=== PATIENT | male | born 1980 | race Caucasian/White ===

== ENCOUNTER 2020-11-17 11:23 | Inpatient (IN) | payer OTHER ==
[2020-11-17] MEDS ORDERED: Ringers Lactate 2,000 ML IV ONE (11:48)
[2020-11-17] MEDS ORDERED: LIDOCAINE VISCOUS 2% SOLN 15 ML UDC ONE (11:48)
[2020-11-17 12:24] LABS: Hematocrit 35.9 % (39.6-49.0); RBC Red Blood Cell Count 4.82 M/uL (4.33-5.43)
[2020-11-17 12:25] LABS: Absolute Lymphocytes (CBC) 0.9 K/uL (0.7-4.9); Basophils % 0.3 % (0-1.3); Lymphocytes % 4.2 % (15.3-44.8); MPV 8.3 fL (7.6-11.3)
[2020-11-17 12:29] LABS: Protime INR 1.58
[2020-11-17] MEDS ORDERED: FENTANYL CITR 100 MCG/2 ML ONE ×3 (12:39→20:34)
[2020-11-17] MEDS ORDERED: ONDANSETRON 4 MG/2 ML VIAL ONE ×2 (12:39→20:35)
[2020-11-17 12:49] LABS: ALT/SGPT 18 U/L (12-78); AST/SGOT 50 U/L (15-37); Albumin 2.9 g/dL (3.4-5.0); Alkaline Phosphatase 100 U/L (45-117); BUN Blood Urea Nitrogen 52 mg/dL (7-18); Bicarbonate 16 mmol/L (21-32); Bilirubin Direct 0.2 mg/dL (0-0.2); Bilirubin Total 0.6 mg/dL (0.2-1.0); Creatine Phosphokinase 1771 U/L (39-308); Glucose Level 141 mg/dL (74-106); Potassium 4.7 mmol/L (3.5-5.1); Protein, Total 8.6 g/dL (6.4-8.2); Sodium Level 130 mmol/L (136-145); Troponin (Emerg Dept Use Only) < 0.02 ng/mL (0.0-0.045)
[2020-11-17] MEDS ORDERED: DIPHENHYDRAMINE 50 MG/ML VIAL ONE ×2 (13:09→20:00)
[2020-11-17] MEDS ORDERED: NA CHLORIDE 0.9% 1,000 ML ONE ×2 (13:23→19:07)
[2020-11-17 13:25] LABS: Urine Bacteria <20 /HPF (NONE SEEN); Urine Mucus 2+ /HPF (NONE SEEN)
[2020-11-17 13:26] LABS: Anisocytosis SLIGHT; Blood Morphology Comment NOTED (NOT SEEN); Platelet Estimate INCR
[2020-11-17 13:35] LABS: Barbiturates NEGATIVE (NEGATIVE); Benzodiazepines NEGATIVE (NEGATIVE); Cocaine POSITIVE (NEGATIVE); METHAMPHETAM POSITIVE (NEGATIVE); Methadone NEGATIVE (NEGATIVE); Opiates NEGATIVE (NEGATIVE); Phencyclidine NEGATIVE (NEGATIVE); THC Cannibis NEGATIVE (NEGATIVE)
--- NOTE | 2020-11-17 14:08 | ER ---
Nurse's Notes [facility] Name: Sd Bergman Age: 40 yrs Sex: Male : 1980 Arrival Date: 11/17/2020 Time: 11:25 Bed 5 Private MD: Diagnosis: Acute kidney failure, unspecified;Dehydration;Rhabdomyolysis;Unspecified open wound of right buttock, initial encounter Presentation: 11/17 11:30 Chief complaint: EMS states: Found by security in drainage ditch, wheelchair was in the road above ditch, was down for approx 2 days. BP 80/40, HR 130s, confused. Ebola Screen: No symptoms or risks identified at this time. Risk Assessment: Do you want to hurt yourself or someone else? Patient reports no desire to harm self or others. Onset of symptoms is unknown. 11:30 Method Of Arrival: EMS: [facility] 11:30 Acuity: CASA 1 hb 12:00 Coronavirus screen: Client denies travel out of the [place] in the last 14 days. At this jl7 time, the client does not indicate any symptoms associated with coronavirus-19. Initial Sepsis Screen: Does the patient meet any 2 criteria? RR > 20 per min. HR > 90 bpm. Yes Does the patient have a suspected source of infection? Yes: Skin breakdown/wound. Triage Assessment: 11:30 General: Appears in no apparent distress. uncomfortable, ill, slender, Behavior is jl7 cooperative, crying, restless. Pain: Complains of pain in all over. EENT: Oral mucosa is dry. Throat is reddened. Neuro: Level of Consciousness is awake, alert, obeys commands, confused, Oriented to person. Cardiovascular: Patient's skin is warm and dry. Rhythm is sinus tachycardia. Respiratory: Airway is patent Respiratory effort is even, unlabored, Respiratory pattern is regular, symmetrical. GI: Colostomy site is reddened. Ostomy appliance is not intact. Derm: Wound noted buttocks Wound is Stage 4 per CHARLENE Moseley. Derm: Wound noted buttocks Wound is Stage 3 per CHARLENE Moseley Rash noted that is red, raised, on all over 2 wounds per CHARLENE Moseley. Musculoskeletal: Amputation of left AKA. Historical: - Allergies: 12:18 No Known Allergies; hb - PMHx: 12:18 Parapalegic; hb - PSHx: 12:18 L AKA; Colostomy; hb - Immunization history:: Adult Immunizations unknown. - Social history:: Smoking status: unknown. Screenin:35 Nutritional screening: Difficulty chewing/swallowing? Yes Intervention for positive jl7 screen: ED Physician notified. 13:59 Abuse screen: unable to obtain, pt unable to describe why and how he was on the side of jl7 the road. Tuberculosis screening: No symptoms or risk factors identified. Fall Risk IV access (20 points). Ambulatory Aid- None/Bed Rest/Nurse Assist (0 pts). Gait- Weak (10 pts.). Mental Status- Overestimates/Forgets Limitations (15 pts.). Total Li Fall Scale indicates High Risk Score (45 or more points). Fall prevention measures have been instituted. Side Rails Up X 2 Placed Close to Nursing Station Frequent Obs/Assessments Occuring As available patient and family educated on Fall Prevention Program and Strategies. Assessment: 11:25 GI: Colostomy site is reddened. Ostomy appliance Pt does not have an appliance on jl7 ostomy. ornamental ironworking supervisor notified and will bring one. 11:35 Reassessment: CHARLENE Moseley at bedside to insert central line. jl7 12:25 Reassessment: Ostomy appliance attached. jl7 14:30 Reassessment: No changes from previously documented assessment. Patient and/or family hb updated on plan of care and expected duration. Pain level reassessed. 15:30 Reassessment: No changes from previously documented assessment. Patient and/or family hb updated on plan of care and expected duration. Pain level reassessed. 16:42 Reassessment: Admission ordered, awaiting hospitalist visit at this time. hb 17:02 Reassessment: Wound care at bedside assessing pt. jl7 17:10 Reassessment: Dr. Frederick at bedside assessing pt, verbal order to administer 50 mcg jl7 Fentanyl IVP. 18:13 Reassessment: Patient appears in no apparent distress at this time. Patient and/or hb family updated on plan of care and expected duration. Pain level reassessed. Vital Signs: 11:30 Pulse 146; Resp 24; Pulse Ox 92% ; Pain 10/10; hb 11:30 Temp 98.2(O); jl7 11:34 Weight 80 kg; hb 11:55 BP 90 / 61; Pulse 112; Resp 21; jl7 12:30 BP 115 / 86; Pulse 94; Resp 21; Temp 99.1; Pulse Ox 100% ; jl7 13:00 BP 115 / 86; Pulse 96; Resp 20; Pulse Ox 98% on R/A; hb 14:30 BP 90 / 62; Pulse 125; Resp 19; Pulse Ox 98% ; hb 16:00 BP 121 / 70; Pulse 120; Resp 19; Pulse Ox 98% ; hb ED Course: 11:25 Patient arrived in ED. jr8 11:25 Pradip Gaines PA is PHCP. jr8 11:25 Manpreet Palomo MD is Attending Physician. jr8 11:30 Patient has correct armband on for positive identification. Placed in gown. Bed in low jl7 position. Call light in reach. Side rails up X 1. vice president of consulting services on. Pulse ox on. NIBP on. Warm blanket given. 11:30 Missed attempt(s): 20 gauge in left antecubital area. Bleeding controlled, band aid jl7 applied, catheter tip intact. 11:33 Triage completed. hb 11:34 Arm band placed on. hb 11:50 Assisted provider with central line placement. Set up central line tray. Triple lumen jl7 line placed in right femoral. Line placed by Pradip CHANG Placement verified by blood return, Dressed with Tegaderm, Blood was collected. Patient tolerated well. Before procedure, did Practitioner(s) obtain informed consent? Yes. Patient \T\ family education about procedure, CLABSI prevention and S/S of infection? Yes. Time-out/Briefing performed prior to start of procedure? Yes. Was handwashing/sanitizing done immediately prior to procedure? Yes. Was patient positioned to in a way to prevent air embolism? Yes. Was procedure site sterilized? Yes, with chlorhexidine. Was the site allowed to dry? Yes. Was local anesthetic and/or sedation utilized? Yes. During the procedure, did the Practitioner(s) maintain a sterile field? Yes. Were unused ports clamped during insertion? Yes. Was a 2nd qualified MD obtained after 3 unsuccessful insertion attempts? No. Was blood aspirated from each lumen? Yes. After the procedure, did the Practitioner(s) clean the site and apply a sterile dressing? Yes. 11:50 Initial lab(s) drawn, by ED staff, sent to lab. First set of blood cultures drawn by jl7 physician. Second set of blood cultures drawn by physician. 11:55 Sandra Presley RN is Primary Nurse. jl7 12:10 Scott cath inserted, using sterile technique, 16 Fr., by retoucher photoengraving, balloon inflated, to jl7 gravity drainage, urine specimen collected. returned cloudy urine. Patient tolerated well. 12:30 COVID swab sent to lab. jl7 13:54 Chest Single View XRAY In Process Unspecified. EDMS 14:06 Roderick Palomo MD is Hospitalizing Provider. jr8 14:26 CT Head Brain wo Cont In Process Unspecified. EDMS 18:38 Patient admitted, IV remains in place. hb 19:21 Primary Nurse role handed off by Sandra Presley RN mw2 19:25 Nanette Benson RN is Primary Nurse. bs2 Administered Medications: 12:10 Drug: NS 0.9% (30 ml/kg) 30 ml/kg Route: IV; Rate: bolus; Site: Other; hb 13:45 Follow up: Response: No adverse reaction; IV Status: Completed infusion; IV Intake: jl7 2000ml 12:19 Drug: fentaNYL (PF) 25 mcg Route: IVP; Site: Other; hb 13:12 Follow up: Response: No adverse reaction hb 12:19 Drug: Zofran (Ondansetron) 4 mg Route: IVP; Site: Other; hb 13:12 Follow up: Response: No adverse reaction hb 12:55 Drug: Benadryl (diphenhydrAMINE) 25 mg Route: IVP; Site: right femoral; jl7 14:50 Follow up: Response: No adverse reaction jl7 13:08 Drug: NS 0.9% 1000 ml Route: IV; Rate: 125 ml/hr; Site: right femoral; jl7 16:56 Follow up: IV Status: Infusion continued upon admission jl7 14:57 Drug: Cefepime 1 grams Route: IVPB; Rate: 200 ml/hr; Infused Over: 30 mins; Site: right jl7 femoral; 15:02 Follow up: Response: No adverse reaction; IV Status: Completed infusion jl7 15:00 Drug: vancoMYCIN 1 grams Route: IVPB; Infused Over: 2 hrs; Site: right femoral; jl7 16:58 Follow up: Response: No adverse reaction; IV Status: Completed infusion jl7 17:15 Drug: fentaNYL (PF) 50 mcg Route: IVP; Site: Other; 23:17 Follow up: Response: No adverse reaction bs2 Intake: 13:45 IV: 2000ml; Total: 2000ml. jl7 Outcome: 14:07 Decision to Hospitalize by Provider. jr8 18:38 Admitted to ER Hold. Please see [facility] for further documentation. 18:38 Condition: stable 18:38 Instructed on the need for admit, Demonstrated understanding of instructions. 11/18 13:08 Patient left the ED. iw Signatures: Dispatcher [employer] EDMS Kathy Albright RN RN iw Pradip Gaines PA PA jr8 Thi Wilson RN RN Sandra Presley RN RN jl7 Jenaro Lombardi mw2 Nanette Benson RN RN bs2
--- NOTE | 2020-11-17 14:08 | EDPHYS ---
Physician Documentation [facility] Name: Sd Bergman Age: 40 yrs Sex: Male : 1980 Arrival Date: 11/17/2020 Time: 11:25 Bed 5 Private MD: ED Physician Manpreet Palomo HPI: 11/17 13:21 This 40 yrs old Male presents to ER via EMS with complaints of Dehydration, jr8 altered mentation. 13:21 Security team on the side of the road. Patient stated that he had fallen out of his jr8 wheelchair. He is paraplegic and could not get back up. Was down in a ditch for approximately 2 days before being found. EMS stated that he was hypotensive and tachycardic upon arrival. Patient also with acute confusion. Severity of symptoms: At their worst the symptoms were moderate in the emergency department the symptoms are unchanged. The patient has not experienced similar symptoms in the past. It is unknown whether or not the patient has recently seen a physician. Historical: - Allergies: 12:18 No Known Allergies; hb - PMHx: 12:18 Parapalegic; hb - PSHx: 12:18 L AKA; Colostomy; hb - Immunization history:: Adult Immunizations unknown. - Social history:: Smoking status: unknown. ROS: 13:21 Eyes: Negative for injury, pain, redness, and discharge, ENT: Negative for injury, jr8 pain, and discharge, Neck: Negative for injury, pain, and swelling, Cardiovascular: Negative for chest pain, palpitations, and edema, Respiratory: Negative for shortness of breath, cough, wheezing, and pleuritic chest pain, Abdomen/GI: Negative for abdominal pain, nausea, vomiting, diarrhea, and constipation, Back: Negative for injury and pain, MS/Extremity: Left AKA noted Skin: Positive for rash and open wound 13:21 Neuro: Positive for altered mental status, dizziness. Exam: 13:28 Respiratory: Lungs have equal breath sounds bilaterally, clear to auscultation and jr8 percussion. No rales, rhonchi or wheezes noted. No increased work of breathing, no retractions or nasal flaring. Abdomen/GI: Soft, non-tender, with normal bowel sounds. No distension or tympany. No guarding or rebound. No evidence of tenderness throughout. 13:28 MS/ Extremity: Pulses equal, no cyanosis to right leg and bilateral ams. Left AKA present. Neurovascular intact. Full, normal range of motion. 13:28 Constitutional: The patient appears alert, awake, uncomfortable. 13:28 Head/face: Exam is negative for 13:28 Eyes: Exam is negative for 13:28 ENT: Exam is negative for ear swelling, hemotympanum, TM abnormalities, Mucous mucous membranes dry. 13:28 Cardiovascular: Rate: tachycardic, Rhythm: regular, Pulses: Pulses are 2+ in right radial artery and left radial artery. Heart sounds: normal, normal S1and S2, no S3 or S4, no murmur, no rub, no gallop, Edema: is not appreciated, JVD: is not appreciated. 13:28 Back: pain, is absent, ROM is normal, vertebral tenderness, is not appreciated, Diffuse papular rash first-degree sunburns to the back. 13:28 Neuro: Orientation: to person, place, Mentation: able to follow commands, slow to respond, Memory: immediate memory is intact, remote memory is intact. recent memory is impaired, Cranial nerves: is grossly normal based on the patient's age, no acute changes, CN I not tested, extraocular movements are intact, Motor: moves all fours, Sensation: no obvious gross deficits, seizure activity, is not displayed by the patient, Abnormal movements: there are no abnormal movements. Vital Signs: 11:30 Pulse 146; Resp 24; Pulse Ox 92% ; Pain 10/10; hb 11:30 Temp 98.2(O); jl7 11:34 Weight 80 kg; hb 11:55 BP 90 / 61; Pulse 112; Resp 21; jl7 12:30 BP 115 / 86; Pulse 94; Resp 21; Temp 99.1; Pulse Ox 100% ; jl7 13:00 BP 115 / 86; Pulse 96; Resp 20; Pulse Ox 98% on R/A; hb 14:30 BP 90 / 62; Pulse 125; Resp 19; Pulse Ox 98% ; hb 16:00 BP 121 / 70; Pulse 120; Resp 19; Pulse Ox 98% ; hb Procedures: 14:06 Central Line: the site was prepped with Betadine, in sterile fashion, a triple lumen jr8 catheter was inserted, in the right femoral vein, in 1 attempts. placement was verified, by blood return, the site was dressed with 4X4s, Tegaderm, foam tape, using sterile technique, the patient tolerated the procedure, well. MDM: 11:25 Patient medically screened. [facility] 13:51 Data reviewed: vital signs, nurses notes, lab test result(s), EKG, radiologic studies, [facility] plain films. Data interpreted: Pulse oximetry: on room air is 98 %. Interpretation: normal. Counseling: I had a detailed discussion with the patient and/or guardian regarding: the historical points, exam findings, and any diagnostic results supporting the discharge/admit diagnosis, lab results, radiology results, the need for further work-up and treatment in the hospital. 11/17 11:26 Order name: Basic Metabolic Panel; Complete Time: 12:57 [facility] 11/17 11:26 Order name: Blood Culture Adult (2) [facility] 11/17 11:26 Order name: CBC with Diff; Complete Time: 13:27 [facility] 11/17 11:26 Order name: CPK; Complete Time: 12:57 [facility] 11/17 11:26 Order name: LFT's; Complete Time: 12:57 [facility] 11/17 11:26 Order name: Lactate; Complete Time: 16:10 [facility] 11/17 11:26 Order name: Procalcitonin; Complete Time: 13:32 [facility] 11/17 11:26 Order name: Protime (+inr); Complete Time: 12:38 [facility] 11/17 11:26 Order name: Ptt, Activated; Complete Time: 12:38 [facility] 11/17 11:26 Order name: Troponin (emerg Dept Use Only); Complete Time: 12:57 [facility] 11/17 11:26 Order name: Urine Microscopic Only; Complete Time: 13:27 [facility] 11/17 11:26 Order name: UDS; Complete Time: 13:49 [facility] 11/17 12:27 Order name: Manual Differential; Complete Time: 13:27 [facility] 11/17 13:25 Order name: Urine Culture [facility] 11/17 14:06 Order name: SARS-COV-2 RT PCR; Complete Time: 14:07 [facility] 11/17 15:29 Order name: Basic Metabolic Panel [facility] 11/17 15:29 Order name: Basic Metabolic Panel [facility] 11/17 15:29 Order name: Basic Metabolic Panel [facility] 11/17 15:29 Order name: Basic Metabolic Panel EDMS 11/17 15:40 Order name: Magnesium EDMS 11/17 15:40 Order name: Comprehensive Metabolic Panel EDMS 11/17 15:40 Order name: Comprehensive Metabolic Panel EDMS 11/17 15:40 Order name: Creatine Phosphokinase EDMS 11/17 15:40 Order name: Creatine Phosphokinase EDMS 11/17 15:40 Order name: Creatine Phosphokinase EDMS 11/17 15:40 Order name: Creatine Phosphokinase EDMS 11/17 15:40 Order name: Phosphorus EDMS 11/17 15:40 Order name: Phosphorus EDMS 11/17 15:40 Order name: Thyroid Stimulating Hormone EDMS 11/17 11:26 Order name: Chest Single View XRAY [facility] 11/17 11:26 Order name: Accucheck; Complete Time: 12:19 [facility] 11/17 11:26 Order name: Cardiac monitoring; Complete Time: 12:19 [facility] 11/17 11:26 Order name: Cath; Complete Time: 12:19 [facility] 11/17 11:26 Order name: EKG - Nurse/Tech; Complete Time: 13:08 [facility] 11/17 11:26 Order name: IV Saline Lock - Large Bore; Complete Time: 12:19 [facility] 11/17 11:26 Order name: Labs collected and sent; Complete Time: 12:19 [facility] 11/17 12:46 Order name: CON[facility] Cons [facility] 11/17 13:52 Order name: CT Head Brain wo Cont [facility] 11/17 15:40 Order name: NPO EDTX 11/17 15:49 Order name: Urinalysis [facility]TX 11/17 15:49 Order name: CBC with Automated Diff [facility]TX 11/17 15:49 Order name: Protime (+INR) EDMS 11/17 18:47 Order name: Basic Metabolic Panel [facility]TX 11/17 22:38 Order name: Lactate Sepsis 2 HR Follow-up EDMS 11/17 22:40 Order name: Urine Dipstick-Ancillary EDMS 11/18 06:10 Order name: Procalcitonin EDMS 11/18 06:37 Order name: Wound Culture EDMS 11/18 06:38 Order name: Anaerobic Culture EDMS 11/18 06:44 Order name: Gram Stain--Aerobic Bottle EDMS 11/18 06:44 Order name: Gram Stain--Anaerobic Bottle [facility] 11/18 06:48 Order name: Gram Stain--Aerobic Bottle [facility] 11/18 06:48 Order name: Gram Stain--Anaerobic Bottle [facility] 11/18 10:41 Order name: US [facility] 11/17 11:26 Order name: O2 Per Protocol; Complete Time: 12:19 [facility] 11/17 11:26 Order name: O2 Sat Monitoring; Complete Time: 12:19 [facility] 11/17 11:26 Order name: Urine Dipstick-Ancillary (obtain specimen); Complete Time: 13:12 Administered Medications: 12:10 Drug: NS 0.9% (30 ml/kg) 30 ml/kg Route: IV; Rate: bolus; Site: Other; hb 13:45 Follow up: Response: No adverse reaction; IV Status: Completed infusion; IV Intake: jl7 2000ml 12:19 Drug: fentaNYL (PF) 25 mcg Route: IVP; Site: Other; hb 13:12 Follow up: Response: No adverse reaction hb 12:19 Drug: Zofran (Ondansetron) 4 mg Route: IVP; Site: Other; hb 13:12 Follow up: Response: No adverse reaction hb 12:55 Drug: Benadryl (diphenhydrAMINE) 25 mg Route: IVP; Site: right femoral; jl7 14:50 Follow up: Response: No adverse reaction jl7 13:08 Drug: NS 0.9% 1000 ml Route: IV; Rate: 125 ml/hr; Site: right femoral; jl7 16:56 Follow up: IV Status: Infusion continued upon admission jl7 14:57 Drug: Cefepime 1 grams Route: IVPB; Rate: 200 ml/hr; Infused Over: 30 mins; Site: right jl7 femoral; 15:02 Follow up: Response: No adverse reaction; IV Status: Completed infusion jl7 15:00 Drug: vancoMYCIN 1 grams Route: IVPB; Infused Over: 2 hrs; Site: right femoral; jl7 16:58 Follow up: Response: No adverse reaction; IV Status: Completed infusion jl7 17:15 Drug: fentaNYL (PF) 50 mcg Route: IVP; Site: Other; hb 23:17 Follow up: Response: No adverse reaction bs2 Disposition: 11/18 18:04 Co-signature as Attending Physician, Manpreet Palomo MD I agree with the assessment and rn plan of care. Attestation: The patient's history, exam findings, diagnostics, and a summary of any interventions or procedures was reviewed in detail with Pradip CHANG. Disposition Summary: 11/17/20 14:07 Hospitalization Ordered Hospitalization Status: Inpatient Admission jr8 Provider: Roderick Palomo Condition: Fair jr8 Problem: new jr8 Symptoms: have improved jr8 Bed/Room Type: Standard [facility] Location: Telemetry/MedSurg (Inpatient)(11/18/20 11:04) Room Assignment: [facility](11/18/20 11:04) Diagnosis - Acute kidney failure, unspecified jr8 - Dehydration jr8 - Rhabdomyolysis jr8 - Unspecified open wound of right buttock, initial encounter jr8 Forms: - Medication Reconciliation Form jr8 - SBAR form jr8 Signatures: Dispatcher [employer] EDMS Manpreet Palomo MD MD rn Smirch, Shelby, RN RN ss Roszak, Josh, PA PA jr8 Thi Wilson RN RN Sandra Presley RN RN jl7 Nanette Benson RN bs2 Corrections: (The following items were deleted from the chart) 11/17 13:02 12:24 CORONAVIRUS+MRELEAZAR.KILOZ ordered. EDTX EDTX 13:50 13:28 Neuro: Orientation: to person, place, Memory: immediate memory is impaired, jr8 Cranial nerves: is grossly normal based on the patient's age, no acute changes, CN I not tested, extraocular movements are intact, Motor: moves all fours, Sensation: no obvious gross deficits, seizure activity, is not displayed by the patient, Abnormal movements: there are no abnormal movements, jr8 17:59 14:07 Telemetry/MedSurg (Inpatient) jr8 ss 17:59 14:07 jr8 11/18 11:04 11/17 17:59 [facility] ER HOLD [facility] 11/18 11:04 11/17 17:59 ERHOLD- [facility]
[2020-11-17] MEDS ORDERED: CEFEPIME/SWI 1gm 10 ML ONE (15:18)
[2020-11-17] MEDS ORDERED: VANCOMYCIN/NS 1 gm 1 GM/250 ML BAG IV ONE (15:30)
[2020-11-17] MEDS ORDERED: LABETALOL 20 MG/4ML SYRINGE IV PRN (15:30)
[2020-11-17] MEDS ORDERED: ONDANSETRON 4 MG/2 ML VIAL IV PRN (15:34)
[2020-11-17] MEDS ORDERED: ACETAMINOPHEN 500 MG TAB PO PRN (15:34)
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
[2020-11-17] MEDS: NA CHLORIDE 0.9% 1,000 ML IV SCH (16:00)
[2020-11-17] MEDS ORDERED: VANCOMYCIN/NS 1 gm 1 GM/250 ML BAG IVPB ONE (16:00)
[2020-11-17 18:46] LABS: Phosphorus 5.1 mg/dL (2.5-4.9); Potassium 4.8 mmol/L (3.5-5.1)
[2020-11-17] MEDS ORDERED: NA CHLORIDE 0.9% 250 ML ONE (19:05)
[2020-11-17] MEDS ORDERED: VANCOMYCIN 1 GM/VIAL ONE (19:05)
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
[2020-11-17] MEDS ORDERED: LIDOCAINE 1% MPF 5 ML VIAL ONE (20:34)
[2020-11-17] MEDS ORDERED: dexAMETHasone 4 MG/ML VIAL ONE (20:34)
[2020-11-17] MEDS ORDERED: MIDAZOLAM HCL 2 MG/2 ML INJ ONE (20:34)
[2020-11-17] MEDS ORDERED: ETOMIDATE 20 MG/10 ML VIAL IV ONE (20:35)
[2020-11-17] MEDS: HEPARIN 5000 UNIT/ML 1 ML VIAL SQ SCH (21:00)
[2020-11-17] MEDS ORDERED: CEFEPIME 1 GM/VIAL IV SCH (21:00)
[2020-11-17] MEDS ORDERED: Phenylephrine HCl 10 MG/ML 1 ML VIAL ONE (21:15)
--- NOTE | 2020-11-17 21:36 | P.OP ---
Preoperative diagnosis: Bilateral ischio rectal abscesses Postoperative diagnosis: The same Primary procedure: Wide excision and debridement of bilateral ischiorectal abscesses Anesthesia: General Estimated blood loss: Less than 30 cc Specimen: Necrotic debris sent, aerobic and anaerobic culture sent Findings: Full thickness skin loss right buttock with exposed ischium, left ischio re Operative Technique: The patient brought the operating room and placed supine on the table. After the induction of adequate general anesthesia, he was rolled to the left lateral position. He was then positioned in propped in weight to allow us access to the buttock areas on both the left and right sides simultaneously. Attention was turned towards the right side first. There is full-thickness skin loss on the side. There is a hole measuring approximately 4 inches x 3 inches over the ischium which is exposed. It is surrounded by necrotic muscular tissue. The skin edges are also necrotic for full-thickness. This full-thickness skin loss and fat was excised using a #10 surgical blade. This left us with an opening approximately 6 inches x 5 inches in size. muscle was also removed again using the 10 blade and cut back to clean viable tissue. On the right side this extended upwards over the top of the ischium itself towards the actual sacrum. Attention was now turned towards the left side. There is full-thickness skin loss once again over the area of the ischium however is not open on that side. This skin was grasped and using 11 blade was excised up to a very clear line of demarcation. All this tissue was sent for histopathology. This left us with a large undermined area which showed evidence of chronic what appeared to be blood underneath the skin itself. This may be consistent with the patient fell a few days ago. The clot was evacuated. The surrounding necrotic muscle was also sharply excised once again using a #10 surgical blade. This was bro ught all the way down to the fascial planes. The fascia was gently opened to ensure that there was no extension consistent with a fasciitis deeper. At this point the wound was packed on both sides with iodoform gauze. ABDs were put in place. These were then taped in position. The patient was now returned to the OR table on his back. At this point he was transferred to the bed where he was extubated. At the end of the procedure he was in a stable condition was sent to the recovery room. Patient obviously has a large open acute on chronic wounds. There is exposed ischium on the left side. This is also the side where he had his amputation. The wound has essentially been debrided at this point. We will have a bring back operation in approximately 24 hours or so just to inspect the area. It may also at that time be possible to place a wound VAC to continue to aggressively address this wound. At the current time he is stable but still in very serious condition. Transferred to: Recovery Room Condition: Serious
[2020-11-17] MEDS ORDERED: MORPHINE 4 MG/ML SYR IV PRN (21:59)
[2020-11-17] MEDS ORDERED: DIPHENHYDRAMINE 25 MG TAB/CAP PO PRN (21:59)
[2020-11-17 22:40] LABS: Urine Blood 3+ (Negative); Urine Glucose Negative (Negative); Urine Protein 2+ (Negative); Urine Specific Gravity >=1.030 (1.005-1.030)
[2020-11-18] MEDS: FENTANYL CITR 100 MCG/2 ML IV PRN ×5 (00:20→21:00)
[2020-11-18] MEDS ORDERED: FENTANYL CITR 100 MCG/2 ML ONE ×3 (00:33→12:52)
[2020-11-18] MEDS ORDERED: LORazepam 2 MG/ML VIAL IV ONE (00:57)
[2020-11-18 01:00] LABS: Potassium 5.1 mmol/L (3.5-5.1)
[2020-11-18] MEDS ORDERED: LORazepam 2 MG/ML VIAL ONE (01:00)
[2020-11-18] MEDS: NA CHLORIDE 0.9% 1,000 ML IV SCH ×2 (02:00→22:00)
[2020-11-18] MEDS ORDERED: DIPHENHYDRAMINE 50 MG/ML VIAL ONE ×2 (05:13→12:51)
[2020-11-18] MEDS ORDERED: NA CHLORIDE 0.9% 1,000 ML ONE (05:19)
[2020-11-18 05:37] LABS: Absolute Lymphocytes (CBC) 0.4 K/uL (0.7-4.9); Basophils % 0.1 % (0-1.3); Hematocrit 29.4 % (39.6-49.0); Lymphocytes % 3.3 % (15.3-44.8); MPV 7.9 fL (7.6-11.3); RBC Red Blood Cell Count 3.99 M/uL (4.33-5.43)
[2020-11-18 05:51] LABS: Protime INR 1.48
[2020-11-18] MEDS: DIPHENHYDRAMINE 50 MG/ML VIAL IV PRN ×3 (06:00→18:31)
[2020-11-18 06:28] LABS: Albumin 2.3 g/dL (3.4-5.0); Bilirubin Total 0.4 mg/dL (0.2-1.0); Potassium 4.9 mmol/L (3.5-5.1); Protein, Total 6.7 g/dL (6.4-8.2)
--- NOTE | 2020-11-18 07:39 | EKG ---
Test Date: 2020-11-17 Test Time: 12:48:36 Director Corporate Communications: ALEM MEASUREMENT RESULTS: Intervals: Rate: 95 [place]: 136 QRSD: 78 QT: 372 QTc: 467 [place]: P: 82 [place]: 136 QRS: 71 T: 61 INTERPRETIVE STATEMENTS: Normal sinus rhythm Normal ECG No previous ECG available for comparison Electronically Signed On 11-18-20 07:36:31 CDT by Abhay Monet
[2020-11-18] MEDS ORDERED: HEPARIN 5000 UNIT/ML 1 ML VIAL ONE (08:37)
[2020-11-18] MEDS ORDERED: ASPIRIN 81 MG CHEWABLE TABLET ONE (08:37)
--- NOTE | 2020-11-18 08:44 | RAD REPORT ---
EXAM DESCRIPTION: CT - Head Brain Wo Cont - 11/17/2020 10:38 pm CLINICAL HISTORY: MENTAL STATUS CHANGE Prolonged technical malfunction precluded earlier final written report. Findings were telephoned to t he referring physician via cell phone at the time of the study. COMPARISON: No comparisons TECHNIQUE: Axial 5 mm thick images of the head were obtained without IV contrast. All CT scans are performed using dose optimization technique as appropriate and may include automated exposure control or mA/KV adjustment according to patient size. FINDINGS: No intracranial hemorrhage, mass, edema or shift of mid-line structures. No acute infarcti on changes seen. No abnormal extra-axial fluid collections. Ventricles are normal. Mastoid air cells and visualized portions of the paranasal sinuses are clear. No acute bony findings. IMPRESSION: Negative non-contrast CT head examination.
[2020-11-18] MEDS: ASPIRIN 81 MG CHEWABLE TABLET PO SCH (09:00)
[2020-11-18] MEDS ORDERED: ENOXAPARIN 40 MG/0.4 ML SQ SCH (09:00)
[2020-11-18] MEDS: HEPARIN 5000 UNIT/ML 1 ML VIAL SQ SCH ×2 (09:00→20:56)
--- NOTE | 2020-11-18 10:40 | RAD REPORT ---
EXAM DESCRIPTION: US - Renal Ultrasound-Complete - 11/18/2020 10:13 am CLINICAL HISTORY: Acute renal insufficiency COMPARISON: None FINDINGS: The right kidney measures 9 cm with a normal echotexture. The left kidney measures 10 cm with a normal echotexture. Hydronephrosis is not seen. A Scott catheter is present within a collapsed bladder IMPRESSION: Unremarkable renal ultrasound.
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
[2020-11-18] MEDS: DOXYCYCLINE 100 MG in NA CHLORIDE 0.9% 100 ML IVPB SCH ×2 (12:00→20:59)
[2020-11-18] MEDS ORDERED: NA CHLORIDE 0.9% 1,000 ML IV ONE (15:00)
--- NOTE | 2020-11-18 16:16 | P.PN ---
Subjective Date of Service: 11/18/20 Chief Complaint: AMS, dehydration. Patient blood culture growing Gram negative rods. Status post sacral wound debridement. No change in generalize erythematous papular rash. He is complaining of pain and chills. Physical Examination - Vital Signs Temperature: 99.0 F Blood Pressure: 106/49 Pulse: 86 Respirations: 18 Pulse Ox (%): 98 - Physical Exam General: Alert, In no apparent distress HEENT: Mucous membr. moist/pink Neck: JVD not distended Respiratory: Clear to auscultation bilaterally, Normal air movement Cardiovascular: No edema, Regular rate/rhythm, Normal S1 S2 Gastrointestinal: Normal bowel sounds, Soft and benign, Non-distended, No tenderness Musculoskeletal: No swelling Integumentary: Other (Generalized Erythematous papular rash, stage IV sacral decubitus ulcer with exposed ischial bone.) Neurological: Normal strength at 5/5 x4 extr, Cranial nerves 3-12 intact Other Physical/Emotional Findings: Agitated/anxious - Studies Microbiology Data (last 24 hrs): 11/17/20 12:22 Blood - Blood Blood Culture Gram Stain - Final 11/17/20 12:22 Blood - Blood Gram Stain - Final Assessment And Plan - Current Problems (Diagnosis) (1) Gram negative sepsis Current Visit: Yes Status: Acute (2) Infected decubitus ulcer Current Visit: Yes Status: Acute (3) Osteomyelitis of sacrum Current Visit: Yes Status: Acute (4) Polysubstance abuse Current Visit: Yes Status: Acute (5) Erythematous rash Current Visit: Yes Status: Acute (6) Acute renal failure Current Visit: Yes Status: Acute (7) Paraplegia Current Visit: Yes Status: Acute - Plan Continue current antibiotics-IV cefepime and vancomycin. Add IV Flagyl to cover anaerobes. Follow blood cultures. Local wound care. Patient may need a wound VAC. Erythematous rash could be related to the gram-negative sepsis. Renal function is improving. Nephrology input appreciated. Unremarkable renal ultrasound Continue IV hydration. Watch for withdrawal symptoms giving polysubstance abuse. Monitor CBC and blood chemistry. General surgery input appreciated. Patient may be a good candidate for LTAC. Physician Review: Patient Assessed, Agree with Above Assessment and Plan
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
[2020-11-18] MEDS ORDERED: CEFEPIME/SWI 1gm 10 ML IV SCH (18:00)
[2020-11-18] MEDS ORDERED: CEFEPIME/SWI 1gm 10 ML IVP SCH (18:00)
[2020-11-18] MEDS: CALCIUM CARBONATE CHEW 500MG TAB PO PRN (19:40)
[2020-11-19] MEDS: FENTANYL CITR 100 MCG/2 ML IV PRN (02:49)
[2020-11-19] MEDS: DIPHENHYDRAMINE 50 MG/ML VIAL IV PRN ×2 (02:53→18:22)
[2020-11-19 04:42] LABS: RBC Red Blood Cell Count 3.67 M/uL (4.33-5.43)
[2020-11-19] MEDS: NA CHLORIDE 0.9% 1,000 ML IV SCH ×4 (05:05→16:06)
[2020-11-19 05:10] LABS: Albumin 2.1 g/dL (3.4-5.0); Ferritin 209.6 ng/mL (26-388); Folic Acid, (Folate) 7.8 ng/mL (3.1-17.5); Magnesium 2.3 mg/dL (1.8-2.4); Phosphorus 2.1 mg/dL (2.5-4.9); Potassium 4.4 mmol/L (3.5-5.1); Thyroid Stimulating Hormone 1.22 uIU/mL (0.360-3.740); Uric Acid 5.3 mg/dL (3.5-7.2)
[2020-11-19 05:39] LABS: Urine Protein/Creatinine Ratio 0.72 ratio (<0.15)
[2020-11-19] MEDS ORDERED: HYDROCODONE/APAP 5/325 MG TAB PO PRN (07:54)
[2020-11-19] MEDS: ZINC SULFATE 220 MG CAP PO SCH (08:20)
[2020-11-19] MEDS: HEPARIN 5000 UNIT/ML 1 ML VIAL SQ SCH ×2 (08:20→22:48)
[2020-11-19] MEDS: ASCORBIC ACID 500 MG TABLET PO SCH (08:20)
[2020-11-19] MEDS: ASPIRIN 81 MG CHEWABLE TABLET PO SCH (08:20)
[2020-11-19] MEDS: MORPHINE 2 MG/ML SYR IV PRN ×4 (08:24→22:48)
[2020-11-19] MEDS ORDERED: POTASSIUM PHOS IN 0.9 % NACL 15 MMOL/250 ML BAG IV ONE (09:00)
[2020-11-19] MEDS: SOD FERRIC GLUC COMPLX/SUCROSE 250 MG in NA CHLORIDE 0.9% 250 ML IV SCH ×3 (11:00→12:06)
[2020-11-19] MEDS ORDERED: Meropenem 1 GM/100 ML BAG IV SCH (11:00)
[2020-11-19] MEDS: DOXYCYCLINE 100 MG in NA CHLORIDE 0.9% 100 ML IVPB SCH ×2 (12:06→22:46)
--- NOTE | 2020-11-19 12:07 | P.PN ---
Subjective Date of Service: 11/19/20 Chief Complaint: AMS, dehydration. Patient seen examined at bedside, iron culture growing ESBL producing Klebsiella, cefepime discontinued and meropenem started. Continue IV doxycycline at this time. Patient NPO and on surgery scheduled for this afternoon wound. WBC decreasing, renal function improving. Patient is very agitated and states he is in a lot of pain. Currently receiving IV morphine. Review of Systems 10-point ROS is otherwise unremarkable Physical Examination - Vital Signs Temperature: 97.6 F Blood Pressure: 127/65 Pulse: 70 Respirations: 16 Pulse Ox (%): 100 - Physical Exam Other Physical/Emotional Findings: Agitated/anxious - Studies Laboratory Last Values WBC 22.40 K/uL (4.3-10.9) H* 11/17/20 12:05 RBC 4.82 M/uL (4.33-5.43) 11/17/20 12:05 Hgb 11.3 g/dL (13.6-17.9) L 11/17/20 12:05 Hct 35.9 % (39.6-49.0) L 11/17/20 12:05 MCV 74.4 fL (80-100) L 11/17/20 12:05 MCH 23.4 pg (27.0-35.0) L 11/17/20 12:05 MCHC 31.5 g/dL (32.0-36.0) L 11/17/20 12:05 RDW 18.4 % (12.1-15.2) H 11/17/20 12:05 Plt Count 709 K/uL (152-406) H 11/17/20 12:05 MPV 8.3 fL (7.6-11.3) 11/17/20 12:05 Neutrophils % 87.7 % (41.7-73.7) H 11/17/20 12:05 Lymphocytes % 4.2 % (15.3-44.8) L 11/17/20 12:05 Monocytes % 7.8 % (3.3-12.3) 11/17/20 12:05 Eosinophils % 0.0 % (0-4.4) 11/17/20 12:05 Basophils % 0.3 % (0-1.3) 11/17/20 12:05 Absolute Neutrophils 19.7 K/uL (1.8-8.0) H 11/17/20 12:05 Segmented Neutrophils 87 % (40-80) H 11/17/20 12:05 Absolute Lymphocytes 0.9 K/uL (0.7-4.9) 11/17/20 12:05 Lymphocytes 7 % (15-42) L 11/17/20 12:05 Monocytes 6 % (0-10) 11/17/20 12:05 Absolute Monocytes 1.8 K/uL (0.1-1.3) H 11/17/20 12:05 Absolute Eosinophils 0.0 K/uL (0-0.5) 11/17/20 12:05 Absolute Basophils 0.1 K/uL (0-0.5) 11/17/20 12:05 Platelet Estimate Incr 11/17/20 12:05 Anisocytosis Slight 11/17/20 12:05 Morphology Comment Noted (NOT SEEN) 11/17/20 12:05 PT 18.2 SECONDS (9.5-12.5) H 11/17/20 12:05 INR 1.58 11/17/20 12:05 APTT 29.5 SECONDS (24.3-36.9) 11/17/20 12:05 Sodium 130 mmol/L (136-145) L 11/17/20 12:05 Potassium 4.7 mmol/L (3.5-5.1) 11/17/20 12:05 Chloride 95 mmol/L (98-107) L 11/17/20 12:05 Carbon Dioxide 16 mmol/L (21-32) L 11/17/20 12:05 BUN 52 mg/dL (7-18) H 11/17/20 12:05 Creatinine 5.29 mg/dL (0.55-1.3) H* 11/17/20 12:05 Estimated GFR 12 mL/min (=/>90) L 11/17/20 12:05 Glucose 141 mg/dL (74-106) H 11/17/20 12:05 Lactic Acid 6.4 mmol/L (0.4-2.0) H* 11/17/20 12:05 Calcium 8.2 mg/dL (8.5-10.1) L 11/17/20 12:05 Total Bilirubin 0.6 mg/dL (0.2-1.0) 11/17/20 12:05 Direct Bilirubin 0.2 mg/dL (0-0.2) 11/17/20 12:05 AST 50 U/L (15-37) H 11/17/20 12:05 ALT 18 U/L (12-78) 11/17/20 12:05 Alkaline Phosphatase 100 U/L (45-117) 11/17/20 12:05 Creatine Kinase 1771 U/L (39-308) H* 11/17/20 12:05 Rapid Troponin I < 0.02 ng/mL (0.0-0.045) 11/17/20 12:05 Serum Total Protein 8.6 g/dL (6.4-8.2) H 11/17/20 12:05 Albumin 2.9 g/dL (3.4-5.0) L 11/17/20 12:05 Globulin 5.7 g/dL (2.3-3.5) H 11/17/20 12:05 Albumin/Globulin Ratio 0.5 (1.1-1.8) L 11/17/20 12:05 Procalcitonin 376.15 ng/mL (<0.050) H 11/17/20 12:05 Urine pH 5.0 (5.0-7.0) 11/17/20 12:55 Ur Specific [place] >=1.030 (1.005-1.030) 11/17/20 12:55 Glucose (UA)(Auto) Negative (Negative) 11/17/20 12:55 Urine Ketones Trace (Negative) H 11/17/20 12:55 Urine Blood 3+ (Negative) H 11/17/20 12:55 Urine Nitrite Negative (Negative) 11/17/20 12:55 Ur Leukocyte Esterase 1+ (Negative) H 11/17/20 12:55 Urine RBC 5-10 /HPF (NONE SEEN) H 11/17/20 12:56 Urine WBC 10-20 /HPF (<5) H 11/17/20 12:56 Ur Squamous Epith Cells 5-10 /HPF (NONE SEEN) H 11/17/20 12:56 Urine Bacteria <20 /HPF (NONE SEEN) 11/17/20 12:56 Urine Mucus 2+ /HPF (NONE SEEN) 11/17/20 12:56 Urine Culture Reflexed Reflexed 11/17/20 12:56 Urine Total Protein 2+ (Negative) H 11/17/20 12:55 Opiates Screen Negative (NEGATIVE) 11/17/20 12:56 Methadone Screen Negative (NEGATIVE) 11/17/20 12:56 Ur Barbiturates Screen Negative (NEGATIVE) 11/17/20 12:56 Ur Phencyclidine Scrn Negative (NEGATIVE) 11/17/20 12:56 Amphetamines Screen Positive (NEGATIVE) H 11/17/20 12:56 Benzodiazepines Screen Negative (NEGATIVE) 11/17/20 12:56 Cocaine Screen Positive (NEGATIVE) H 11/17/20 12:56 Ur THC Screen Negative (NEGATIVE) 11/17/20 12:56 SARS-CoV-2 Rap RNA(RT-PCR) Negative (NEGATIVE) 11/17/20 12:30 Microbiology Data (last 24 hrs): 11/17/20 12:56 Clean Catch Urine [place] Count - Final >100,000 CFU/ML. 11/17/20 12:56 Clean Catch Urine - Final Klebsiella Pneumoniae Esbl 11/17/20 12:22 Blood - Blood Blood Culture Gram Stain - Final 11/17/20 12:22 Blood - Blood Gram Stain - Final Assessment And Plan - Plan Physical Exam: General: Oriented x1, Cachectic, Confused HEENT: Atraumatic, Normocephalic Neck: Supple, 2+ carotid pulse no bruit Respiratory: Clear to auscultation bilaterally, Normal air movement Cardiovascular: No edema, Normal pulses, Regular rate/rhythm Capillary refill: <2 Seconds Gastrointestinal: Other (colostomy bag) Musculoskeletal: Other (Left AKA, right 5th toe amputation) Integumentary: Pressure ulcer (Bilateral stage IV ischial decubitus ulcers. Draining ban blood, status post surgical I and D performed on 11/17 mary wound tissue erythematous), Other (Diffuse maculopapular rash) Neurological: Other (Paraplegic) Urinary: Scott catheter External genitalia: Other (Right groin central line) Rectal: Deferred Other Physical/Emotional Findings: Agitated/anxious Conclusions/Impression: Antibiotics: Current: merum start: 11/19 stop: -- Doxycycline Start: 11/17 Stop:-- DC: Cefepime Start: 11/17 Stop: 11/19 Patient received single dose of vancomycin on 11/17 Assessment/PLAN: Severe urosepsis with bacteremia and UTI Severe sepsis on admission. Blood cultures performed on 11/17 growing gram- negative rods in 4/4 bottles. Urine culture performed on 11/17 growing ESBL producing Klebsiella, cefepime discontinued in meropenem started. Continue IV doxycycline at this time. Source of bacteremia likely urine. Leukocytosis with left shift WBC down trending, continue to monitor WBC and fever curve. Patient responding to antibiotic therapy. Bilateral stage IV ischial decubitus ulcer The patient underwent surgical I and D on 11/17. Necrotic and slough tissue removed. Plan to take the patient back to OR within 24 hr. Left ischial aspect of pelvis exposed. Patient will need to be treated for osteomyelitis with IV antibiotics for total duration of 6 weeks. Patient currently has right groin central line placed, recommend more permanent line placement. Wound care per surgical team. Paraplegic with bed bound/wheelchair-bound status, anemia of chronic disease, protein caloric malnutrition, dehydration All aspects which tender wound healing ability. Recommend placement of air mattress. Recommend repositioning patient in bed every 2 hr during waking hr. Avoid direct pressure over wounds. Patient started on vitamin stoma wound healing including vitamin-C, vitamin-D, and zinc. Recommend supplemental Ensure protein drinks. Diffuse maculopapular rash Rash present on admission, not likely due to any medication/antibiotic therapy. Rash likely due to patient being found in did show for an estimated 2 days. Per EMS patient was found to have antibiotics all over his body. Continue treatment with Benadryl. Acute encephalopathy, Rhabdomyolysis, MADDIE, Polysubstance abuse Medical management per primary team Plan of care discussed with Dr. Hobbs Thank you for consultation Physician Review: Patient Assessed, Agree with Above Assessment and Plan
[2020-11-19] MEDS ORDERED: LIDOCAINE 1% MPF 5 ML VIAL ONE (13:22)
[2020-11-19] MEDS ORDERED: FENTANYL CITR 100 MCG/2 ML ONE (13:22)
[2020-11-19] MEDS ORDERED: MIDAZOLAM HCL 2 MG/2 ML INJ ONE (13:22)
[2020-11-19] MEDS ORDERED: propofoL 200 MG/20 ML VIAL IV ONE ×2 (13:22→14:14)
[2020-11-19] MEDS ORDERED: dexAMETHasone 4 MG/ML VIAL ONE (13:23)
[2020-11-19] MEDS ORDERED: ONDANSETRON 4 MG/2 ML VIAL ONE (13:23)
--- NOTE | 2020-11-19 14:10 | P.PN ---
Subjective Date of Service: 11/19/20 Chief Complaint: AMS, dehydration. Patient blood culture growing Gram negative rods. Status post sacral wound debridement 11/18 No change in generalize erythematous papular rash. He is complaining of uncontrolled pain. Physical Examination - Vital Signs Temperature: 97.6 F Blood Pressure: 127/65 Pulse: 70 Respirations: 16 Pulse Ox (%): 100 - Physical Exam General: Alert, In no apparent distress HEENT: Mucous membr. moist/pink Neck: JVD not distended Respiratory: Clear to auscultation bilaterally, Normal air movement Cardiovascular: No edema, Regular rate/rhythm, Normal S1 S2 Gastrointestinal: Soft and benign, Non-distended, Other (Colostomy left lower abdomen.) Musculoskeletal: Other Integumentary: Other (Diffuse erythematous papular rash.) Neurological: Normal strength at 5/5 x4 extr Other Physical/Emotional Findings: Agitated/anxious - Studies Microbiology Data (last 24 hrs): 11/17/20 12:56 Clean Catch Urine [place] Count - Final >100,000 CFU/ML. 11/17/20 12:56 Clean Catch Urine - Final Klebsiella Pneumoniae Esbl 11/17/20 12:22 Blood - Blood Blood Culture Gram Stain - Final 11/17/20 12:22 Blood - Blood Gram Stain - Final Assessment And Plan - Current Problems (Diagnosis) (1) Gram negative sepsis Current Visit: Yes Status: Acute (2) Infected decubitus ulcer Current Visit: Yes Status: Acute (3) Osteomyelitis of sacrum Current Visit: Yes Status: Acute (4) Polysubstance abuse Current Visit: Yes Status: Acute (5) Erythematous rash Current Visit: Yes Status: Acute (6) Acute renal failure Current Visit: Yes Status: Acute (7) Paraplegia Current Visit: Yes Status: Acute - Plan Cefepime changed to IV meropenem given ESBL Klebsiella growing in the urine. Follow blood cultures for organism ID and susceptibility. Local wound care. Patient scheduled for another wound debridement today. Erythematous rash could be related to the gram-negative sepsis. A KI almost resolved. Nephrology is following Unremarkable renal ultrasound Continue IV hydration. Watch for withdrawal symptoms giving polysubstance abuse. Monitor CBC and blood chemistry. Social service to assist with LTAC placement. Physician Review: Patient Assessed, Agree with Above Assessment and Plan
[2020-11-19] MEDS ORDERED: COLLAGENASE 30 GM OINTMENT TOP ONE (14:46)
--- NOTE | 2020-11-19 15:04 | P.OP ---
Preoperative diagnosis: Bilateral open ischial surgical wounds Postoperative diagnosis: The same Primary procedure: Debridement of bilateral ischial rectal wounds and application of wound VAC Anesthesia: General Estimated blood loss: 10 cc Specimen: None sent Operative Technique: The patient was brought to the operating room again placed prone on the OR table with the right leg supported at the flex. The area of the perineum was marked with a Betadine solution, he was draped in usual aseptic manner. Attention was turned towards these 2 wounds on his ischiorectal surface. We could see on the right side we had done an excellent debridement on the right wound. There was no evidence of any remaining necrotic material. There was some fibrinous exudate that was easily removed using a surgical curette. We explored around the wound edges. Some small areas of bleeding were easily handled with electrocautery. Attention was now turned towards the wound on the left. This is not as deep [although it is full-thickness] as the right side. Bone is not exposed on the left. Once again we were able to inspect the wound edges. Adequate hemostasis was again ensured using electrocautery. At this point Santyl was placed into both wounds. Our wound VAC sponges were cut to appropriate sizes. We bridged them together's allow for just 1 close applying suction. The dressings were then applied in the usual manner, a vacuum check was done and found to be adequate. At the end of procedure he was in a stable condition was sent to the recovery room. We now have the remaining wounds that are approximately 8 inches x 6 inches on the left, full-thickness down through the fascia. On the right-hand side again we have a wound measuring 6 x 8 inches with exposed ischium [bone] in the base. Complications: None Drain(s): Other (Wound VAC) Transferred to: Recovery Room Condition: Good
[2020-11-19] MEDS: MEPERIDINE HCL 25 MG/ML SYR ONE ×2 (15:21→15:35)
[2020-11-19] MEDS ORDERED: Ringers Lactate 1,000 ML IV ONE (15:32)
--- NOTE | 2020-11-19 15:35 | PN ---
Subjective: The patient was admitted with acute kidney injury secondary to rhabdomyolysis/prerenal. The patient's after hydration kidney function started being improving and nonoliguric. Physical Examination: Vital Signs: Blood pressure 127/65, pulse of 70, afebrile. Chest: Clear to auscultation. Heart: S1, S2. Regular. Abdomen: Soft, nontender. Extremity: No edema. Left below-knee amputation. Laboratory Data: H and H 9.5/29.4, WBC down to 12.2. Sodium 140, potassium 4.4, bicarb 25, BUN 32, creatinine 1.1, GFR of 72, uric acid 5.3, calcium 7.5. Iron saturation of 5.4, ferritin 209, PTH of 88, PC ratio 0.7. Current Medications: The patient on; 1. Aspirin. 2. Doxycycline. 3. Meropenem. 4. Diphenhydramine. 5. Calcium carbonate. Assessment And Plan: 1. Acute kidney injury secondary to prerenal/rhabdomyolysis, recovered, resolved. I am going to go ahead and decrease IV fluid to 50 per hour, and we will continue to monitor the patient. Keep holding all blood pressure medications. 2. Hypocalcemia, corrected. 3. Rhabdomyolysis. Continue hydration. CK trending down. 4. Urinary tract infection secondary to Klebsiella pneumonia, multidrug resistant, sensitive to meropenem. Continue meropenem dose as appropriate. We will follow up. Time spent examining the patient [id number] placing order discussing with the patient reviewing data discussing the case with all of our subspecialty including hospitalist 45 minutes MESSI Voice ID: [id number] Report ID: [id number]
[2020-11-19] MEDS: Meropenem 1 GM/100 ML BAG IV SCH (17:22)
[2020-11-19] MEDS ORDERED: VANCOMYCIN 750 MG in NA CHLORIDE 0.9% 150 ML IVPB SCH (18:00)
[2020-11-19] MEDS: CALCIUM CARBONATE CHEW 500MG TAB PO PRN ×2 (18:15→23:12)
[2020-11-19] MEDS: JUVEN PACKET PO SCH (21:00)
[2020-11-20 01:01] LABS: Rheumatoid Factor NEG (NEG)
[2020-11-20] MEDS: Meropenem 1 GM/100 ML BAG IV SCH ×3 (02:17→16:21)
--- NOTE | 2020-11-20 06:36 | P.PN ---
Subjective Date of Service: 11/20/20 Chief Complaint: AMS, dehydration. Subjective: No new changes Physical Examination - Vital Signs Temperature: 98.2 F Blood Pressure: 123/64 Pulse: 65 Respirations: 16 Pulse Ox (%): 92 - Physical Exam General: In no apparent distress HEENT: Atraumatic, Normocephalic Neck: Supple, JVD not distended Respiratory: Normal air movement Cardiovascular: No rubs, No murmurs Gastrointestinal: Soft and benign, Non-distended Musculoskeletal: No clubbing Integumentary: Other (+sacral decubitus wound) Neurological: Normal speech Urinary: Scott catheter Other Physical/Emotional Findings: Agitated/anxious - Studies Microbiology Data (last 24 hrs): 11/17/20 12:56 Clean Catch Urine [place] Count - Final >100,000 CFU/ML. 11/17/20 12:56 Clean Catch Urine - Final Klebsiella Pneumoniae Esbl 11/17/20 12:22 Blood - Blood Blood Culture Gram Stain - Final 11/17/20 12:22 Blood - Blood Gram Stain - Final Assessment And Plan - Plan 1. Acute kidney injury secondary to prerenal state, resolved. [place] po fluid intake. continue Scott catheter. 2. sepsis. Has UTI w/ urine culture growing ESBL Klebsiella. stage IV sacral decubitus ulcer. Antibiotics per ID service. 3. Anemia. Monitor H&H. 4. Hypophosphatemia. Neutra-Phos ordered for today. 5. Hypomagnesemia. IV magnesium repletion ordered for today. 6. acute metabolic encephalopathy. resolving. Monitor 7. Paraplegia. PT/OT. Physician Review: Patient Assessed, Agree with Above Assessment and Plan
[2020-11-20] MEDS: MORPHINE 2 MG/ML SYR IV PRN ×4 (07:45→20:11)
[2020-11-20] MEDS: NA CHLORIDE 0.9% 1,000 ML IV SCH ×2 (07:51→10:11)
[2020-11-20] MEDS: JUVEN PACKET PO SCH ×2 (09:00→20:23)
[2020-11-20] MEDS: HEPARIN 5000 UNIT/ML 1 ML VIAL SQ SCH ×2 (09:00→20:11)
[2020-11-20] MEDS: ZINC SULFATE 220 MG CAP PO SCH (10:12)
[2020-11-20] MEDS: ASPIRIN 81 MG CHEWABLE TABLET PO SCH (10:12)
[2020-11-20] MEDS: DOXYCYCLINE 100 MG in NA CHLORIDE 0.9% 100 ML IVPB SCH ×2 (10:13→20:23)
[2020-11-20] MEDS: ASCORBIC ACID 500 MG TABLET PO SCH (10:13)
--- NOTE | 2020-11-20 11:53 | P.PN ---
Subjective Date of Service: 11/20/20 Chief Complaint: AMS, dehydration. Patient seen examined at bedside, was taken back to OR on 11/19. Wound VAC placed. Review of Systems 10-point ROS is otherwise unremarkable Physical Examination - Vital Signs Temperature: 98.7 F Blood Pressure: 114/64 Pulse: 57 Respirations: 18 Pulse Ox (%): 100 - Physical Exam Other Physical/Emotional Findings: Agitated/anxious - Studies Laboratory Last Values WBC 22.40 K/uL (4.3-10.9) H* 11/17/20 12:05 RBC 4.82 M/uL (4.33-5.43) 11/17/20 12:05 Hgb 11.3 g/dL (13.6-17.9) L 11/17/20 12:05 Hct 35.9 % (39.6-49.0) L 11/17/20 12:05 MCV 74.4 fL (80-100) L 11/17/20 12:05 MCH 23.4 pg (27.0-35.0) L 11/17/20 12:05 MCHC 31.5 g/dL (32.0-36.0) L 11/17/20 12:05 RDW 18.4 % (12.1-15.2) H 11/17/20 12:05 Plt Count 709 K/uL (152-406) H 11/17/20 12:05 MPV 8.3 fL (7.6-11.3) 11/17/20 12:05 Neutrophils % 87.7 % (41.7-73.7) H 11/17/20 12:05 Lymphocytes % 4.2 % (15.3-44.8) L 11/17/20 12:05 Monocytes % 7.8 % (3.3-12.3) 11/17/20 12:05 Eosinophils % 0.0 % (0-4.4) 11/17/20 12:05 Basophils % 0.3 % (0-1.3) 11/17/20 12:05 Absolute Neutrophils 19.7 K/uL (1.8-8.0) H 11/17/20 12:05 Segmented Neutrophils 87 % (40-80) H 11/17/20 12:05 Absolute Lymphocytes 0.9 K/uL (0.7-4.9) 11/17/20 12:05 Lymphocytes 7 % (15-42) L 11/17/20 12:05 Monocytes 6 % (0-10) 11/17/20 12:05 Absolute Monocytes 1.8 K/uL (0.1-1.3) H 11/17/20 12:05 Absolute Eosinophils 0.0 K/uL (0-0.5) 11/17/20 12:05 Absolute Basophils 0.1 K/uL (0-0.5) 11/17/20 12:05 Platelet Estimate Incr 11/17/20 12:05 Anisocytosis Slight 11/17/20 12:05 Morphology Comment Noted (NOT SEEN) 11/17/20 12:05 PT 18.2 SECONDS (9.5-12.5) H 11/17/20 12:05 INR 1.58 11/17/20 12:05 APTT 29.5 SECONDS (24.3-36.9) 11/17/20 12:05 Sodium 130 mmol/L (136-145) L 11/17/20 12:05 Potassium 4.7 mmol/L (3.5-5.1) 11/17/20 12:05 Chloride 95 mmol/L (98-107) L 11/17/20 12:05 Carbon Dioxide 16 mmol/L (21-32) L 11/17/20 12:05 BUN 52 mg/dL (7-18) H 11/17/20 12:05 Creatinine 5.29 mg/dL (0.55-1.3) H* 11/17/20 12:05 Estimated GFR 12 mL/min (=/>90) L 11/17/20 12:05 Glucose 141 mg/dL (74-106) H 11/17/20 12:05 Lactic Acid 6.4 mmol/L (0.4-2.0) H* 11/17/20 12:05 Calcium 8.2 mg/dL (8.5-10.1) L 11/17/20 12:05 Total Bilirubin 0.6 mg/dL (0.2-1.0) 11/17/20 12:05 Direct Bilirubin 0.2 mg/dL (0-0.2) 11/17/20 12:05 AST 50 U/L (15-37) H 11/17/20 12:05 ALT 18 U/L (12-78) 11/17/20 12:05 Alkaline Phosphatase 100 U/L (45-117) 11/17/20 12:05 Creatine Kinase 1771 U/L (39-308) H* 11/17/20 12:05 Rapid Troponin I < 0.02 ng/mL (0.0-0.045) 11/17/20 12:05 Serum Total Protein 8.6 g/dL (6.4-8.2) H 11/17/20 12:05 Albumin 2.9 g/dL (3.4-5.0) L 11/17/20 12:05 Globulin 5.7 g/dL (2.3-3.5) H 11/17/20 12:05 Albumin/Globulin Ratio 0.5 (1.1-1.8) L 11/17/20 12:05 Procalcitonin 376.15 ng/mL (<0.050) H 11/17/20 12:05 Urine pH 5.0 (5.0-7.0) 11/17/20 12:55 Ur Specific [place] >=1.030 (1.005-1.030) 11/17/20 12:55 Glucose (UA)(Auto) Negative (Negative) 11/17/20 12:55 Urine Ketones Trace (Negative) H 11/17/20 12:55 Urine Blood 3+ (Negative) H 11/17/20 12:55 Urine Nitrite Negative (Negative) 11/17/20 12:55 Ur Leukocyte Esterase 1+ (Negative) H 11/17/20 12:55 Urine RBC 5-10 /HPF (NONE SEEN) H 11/17/20 12:56 Urine WBC 10-20 /HPF (<5) H 11/17/20 12:56 Ur Squamous Epith Cells 5-10 /HPF (NONE SEEN) H 11/17/20 12:56 Urine Bacteria <20 /HPF (NONE SEEN) 11/17/20 12:56 Urine Mucus 2+ /HPF (NONE SEEN) 11/17/20 12:56 Urine Culture Reflexed Reflexed 11/17/20 12:56 Urine Total Protein 2+ (Negative) H 11/17/20 12:55 Opiates Screen Negative (NEGATIVE) 11/17/20 12:56 Methadone Screen Negative (NEGATIVE) 11/17/20 12:56 Ur Barbiturates Screen Negative (NEGATIVE) 11/17/20 12:56 Ur Phencyclidine Scrn Negative (NEGATIVE) 11/17/20 12:56 Amphetamines Screen Positive (NEGATIVE) H 11/17/20 12:56 Benzodiazepines Screen Negative (NEGATIVE) 11/17/20 12:56 Cocaine Screen Positive (NEGATIVE) H 11/17/20 12:56 Ur THC Screen Negative (NEGATIVE) 11/17/20 12:56 SARS-CoV-2 Rap RNA(RT-PCR) Negative (NEGATIVE) 11/17/20 12:30 Microbiology Data (last 24 hrs): 11/17/20 12:56 Clean Catch Urine Corinne Count - Final >100,000 CFU/ML. 11/17/20 12:56 Clean Catch Urine - Final Klebsiella Pneumoniae Esbl Assessment And Plan - Plan Physical Exam: General: Oriented x1, Cachectic, Confused HEENT: Atraumatic, Normocephalic Neck: Supple, 2+ carotid pulse no bruit Respiratory: Clear to auscultation bilaterally, Normal air movement Cardiovascular: No edema, Normal pulses, Regular rate/rhythm Capillary refill: <2 Seconds Gastrointestinal: Other (colostomy bag) Musculoskeletal: Other (Left AKA, right 5th toe amputation) Integumentary: Pressure ulcer (Bilateral stage IV ischial decubitus ulcers. Draining ban blood, status post surgical I and D performed on 11/17 mary wound tissue erythematous), Other (Diffuse maculopapular rash) Neurological: Other (Paraplegic) Urinary: Scott catheter External genitalia: Other (Right groin central line) Rectal: Deferred Other Physical/Emotional Findings: Agitated/anxious Conclusions/Impression: Antibiotics: Current: merum start: 11/19 stop: -- Doxycycline Start: 11/17 Stop:-- DC: Cefepime Start: 11/17 Stop: 11/19 Patient received single dose of vancomycin on 11/17 Assessment/PLAN: Severe urosepsis with bacteremia and UTI Severe sepsis on admission. Blood cultures performed on 11/17 growing gram- negative rods in 4/4 bottles. Repeat blood cultures performed on 11/19 growing gram-positive cocci and clusters, awaiting species identification. Urine culture performed on 11/17 growing ESBL producing Klebsiella, cefepime discontinued in meropenem started. Continue IV doxycycline at this time. Source of bacteremia likely urine. Leukocytosis with left shift WBC down trending, continue to monitor WBC and fever curve. Patient responding to antibiotic therapy. Bilateral stage IV ischial decubitus ulcer The patient underwent surgical I and D on 11/17. Patient's taken back to OR on 11/19 and remaining necrotic tissue was removed, wound VAC has been placed to bilateral wounds. Wound care per surgical team. All right ischial aspect of pelvis exposed, Patient will need to be treated for osteomyelitis with IV antibiotics for total duration of 6 weeks. Patient currently has right groin central line placed, recommend more permanent line placement. Paraplegic with bed bound/wheelchair-bound status, anemia of chronic disease, protein caloric malnutrition, dehydration All aspects which hinder wound healing ability. Recommend placement of air mattress. Recommend repositioning patient in bed every 2 hr during waking hr. Avoid direct pressure over wounds. Patient started on vitamins to promote wound healing including vitamin-C, vitamin-D, and zinc. Recommend supplemental Ensure protein drinks. Diffuse maculopapular rash Rash present on admission, not likely due to any medication/antibiotic therapy. Rash likely due to patient being found in did show for an estimated 2 days. Per EMS patient was found to have antibiotics all over his body. Continue treatment with Benadryl. Acute encephalopathy, Rhabdomyolysis, MADDIE, Polysubstance abuse Medical management per primary team Plan of care discussed with Dr. Hobbs Thank you for consultation Physician Review: Patient Assessed, Agree with Above Assessment and Plan
--- NOTE | 2020-11-20 12:58 | P.PN ---
Subjective Date of Service: 11/20/20 Chief Complaint: AMS, dehydration. Patient has no new complain. Repeat blood cultures growing Gram positive cocci. Status post sacral wound debridement x 2. Last debridement 11/19 No change in generalize erythematous papular rash. Physical Examination - Vital Signs Temperature: 98.7 F Blood Pressure: 114/64 Pulse: 57 Respirations: 18 Pulse Ox (%): 100 - Physical Exam General: Alert, In no apparent distress, Oriented x3 HEENT: Mucous membr. moist/pink Neck: JVD not distended Respiratory: Clear to auscultation bilaterally, Normal air movement Cardiovascular: No edema, Regular rate/rhythm, No murmurs Gastrointestinal: Soft and benign, Non-distended, No tenderness, Other (Colostomy) Musculoskeletal: No swelling, Other (Left AKA) Integumentary: Other (Diffuse erythematous papular rash-unchanged.) Neurological: Other (No focal motor deficit) Other Physical/Emotional Findings: Agitated/anxious Assessment And Plan - Current Problems (Diagnosis) (1) Gram negative sepsis Current Visit: Yes Status: Acute (2) Infected decubitus ulcer Current Visit: Yes Status: Acute (3) Osteomyelitis of sacrum Current Visit: Yes Status: Acute (4) Polysubstance abuse Current Visit: Yes Status: Acute (5) Erythematous rash Current Visit: Yes Status: Acute (6) Acute renal failure Current Visit: Yes Status: Acute (7) Paraplegia Current Visit: Yes Status: Acute (8) Gram-positive cocci bacteremia Current Visit: Yes Status: Acute - Plan Continue IV meropenem for ESBL Klebsiella UTI and gram-negative bacteria. Patient started on IV and doxycycline for positive bacteremia. Follow blood cultures for organism ID and susceptibility. Local wound care. Patient scheduled for another wound debridement today. Erythematous rash could be related to the gram-negative/positive sepsis. MADDIE almost resolved. Nephrology is following Unremarkable renal ultrasound Continue IV hydration. Monitor for withdrawal symptoms giving polysubstance abuse. Monitor CBC and blood chemistry. Repeat blood culture and place PICC line once blood culture shows no growth. Social service to assist with LTAC placement. Physician Review: Patient Assessed, Agree with Above Assessment and Plan
[2020-11-20 14:51] LABS: Absolute Lymphocytes (CBC) 1.5 K/uL (0.7-4.9); Basophils % 0.1 % (0-1.3); Hematocrit 26.8 % (39.6-49.0); Lymphocytes % 14.8 % (15.3-44.8); MPV 7.8 fL (7.6-11.3)
[2020-11-20 15:11] LABS: Albumin 2.2 g/dL (3.4-5.0); BUN Blood Urea Nitrogen 18 mg/dL (7-18); Bicarbonate 29 mmol/L (21-32); Creatine Phosphokinase 151 U/L (39-308); Glucose Level 116 mg/dL (74-106); Magnesium 1.7 mg/dL (1.8-2.4); Potassium 3.6 mmol/L (3.5-5.1); Sodium Level 143 mmol/L (136-145)
[2020-11-20] MEDS ORDERED: POTASSIUM PHOS IN 0.9 % NACL 15 MMOL/250 ML BAG IV ONE (16:00)
[2020-11-20] MEDS ORDERED: MAGNESIUM SULFATE 1 gm IVPB 1 GM/100 ML BAG IV ONE ×2 (16:00→19:37)
[2020-11-20] MEDS ORDERED: POTASS/SODIUM PHOSPHATE 1 PKT POWD.PACK PO ONE (20:00)
[2020-11-21] MEDS: Meropenem 1 GM/100 ML BAG IV SCH ×3 (00:54→16:14)
[2020-11-21] MEDS: MORPHINE 2 MG/ML SYR IV PRN ×6 (01:04→21:48)
[2020-11-21] MEDS: NA CHLORIDE 0.9% 1,000 ML IV SCH ×3 (03:51→23:51)
[2020-11-21 06:15] LABS: Albumin 2.1 g/dL (3.4-5.0); Phosphorus 2.1 mg/dL (2.5-4.9)
[2020-11-21 06:17] LABS: Magnesium 1.6 mg/dL (1.8-2.4); Potassium 4.3 mmol/L (3.5-5.1)
--- NOTE | 2020-11-21 07:12 | P.PN ---
Subjective Date of Service: 11/21/20 Chief Complaint: AMS, dehydration. Subjective: Other (he reports still having poor appetite.) Physical Examination - Vital Signs Temperature: 98.6 F Blood Pressure: 180/82 Pulse: 64 Respirations: 18 Pulse Ox (%): 99 - Physical Exam General: In no apparent distress HEENT: Atraumatic, Normocephalic Neck: Supple, JVD not distended Respiratory: Normal air movement Cardiovascular: No rubs, No murmurs Gastrointestinal: Soft and benign, No guarding Musculoskeletal: Other (paraplegia) Integumentary: Other (sacral decubitus ulcer) Urinary: Other (no bladder distention) External genitalia: Deferred Rectal: Deferred Other Physical/Emotional Findings: Agitated/anxious - Studies Microbiology Data (last 24 hrs): 11/17/20 12:05 Blood - Blood Aerobic Blood Culture - Final Proteus Mirabilis Klebsiella Pneumoniae Esbl 11/17/20 12:05 Blood - Blood Blood Culture Gram Stain - Final 11/17/20 12:05 Blood - Blood Anaerobic Blood Culture - Final Proteus Mirabilis Klebsiella Pneumoniae Esbl 11/17/20 12:05 Blood - Blood Gram Stain - Final 11/17/20 12:22 Blood - Blood Aerobic Blood Culture - Final Proteus Mirabilis Klebsiella Pneumoniae Esbl 11/17/20 12:22 Blood - Blood Blood Culture Gram Stain - Final 11/17/20 12:22 Blood - Blood Anaerobic Blood Culture - Final Proteus Mirabilis Klebsiella Pneumoniae Esbl 11/17/20 12:22 Blood - Blood Gram Stain - Final Assessment And Plan - Plan 1. Acute kidney injury secondary to prerenal state. SCr increased today, likely 2/2 prerenal state. Encourage po fluid intake. NS IV fluid started today. continue Scott catheter. 2. Sepsis. Has UTI w/ urine culture growing ESBL Klebsiella. Has stage IV sacral decubitus ulcer. Wound cx growing Klebsiella and Proteus. Antibiotics per ID service. 3. Anemia. Monitor H&H. 4. Hypophosphatemia. Neutra-Phos ordered again for today. 5. Hypomagnesemia. Improved. Received IV magnesium repletion. Replete prn. 6. Acute metabolic encephalopathy. Resolving. Monitor 7. Paraplegia. PT/OT. Physician Review: Patient Assessed, Agree with Above Assessment and Plan
[2020-11-21] MEDS: HEPARIN 5000 UNIT/ML 1 ML VIAL SQ SCH ×2 (08:58→21:00)
[2020-11-21] MEDS ORDERED: MAGNESIUM SULFATE 1 gm IVPB 1 GM/100 ML BAG IV ONE (09:00)
[2020-11-21] MEDS: JUVEN PACKET PO SCH ×2 (09:00→21:00)
[2020-11-21] MEDS: ASPIRIN 81 MG CHEWABLE TABLET PO SCH (09:07)
[2020-11-21] MEDS: ASCORBIC ACID 500 MG TABLET PO SCH (09:08)
[2020-11-21] MEDS: ZINC SULFATE 220 MG CAP PO SCH (09:08)
[2020-11-21] MEDS: DOXYCYCLINE 100 MG in NA CHLORIDE 0.9% 100 ML IVPB SCH ×2 (09:08→21:49)
--- NOTE | 2020-11-21 12:52 | P.PN ---
Subjective Date of Service: 11/21/20 Chief Complaint: AMS, dehydration. Patient seen examined at bedside, unwilling to participate in patient interview. Review of Systems 10-point ROS is otherwise unremarkable Physical Examination - Vital Signs Temperature: 98.6 F Blood Pressure: 180/82 Pulse: 64 Respirations: 18 Pulse Ox (%): 99 - Physical Exam Other Physical/Emotional Findings: Agitated/anxious - Studies Laboratory Last Values WBC 22.40 K/uL (4.3-10.9) H* 11/17/20 12:05 RBC 4.82 M/uL (4.33-5.43) 11/17/20 12:05 Hgb 11.3 g/dL (13.6-17.9) L 11/17/20 12:05 Hct 35.9 % (39.6-49.0) L 11/17/20 12:05 MCV 74.4 fL (80-100) L 11/17/20 12:05 MCH 23.4 pg (27.0-35.0) L 11/17/20 12:05 MCHC 31.5 g/dL (32.0-36.0) L 11/17/20 12:05 RDW 18.4 % (12.1-15.2) H 11/17/20 12:05 Plt Count 709 K/uL (152-406) H 11/17/20 12:05 MPV 8.3 fL (7.6-11.3) 11/17/20 12:05 Neutrophils % 87.7 % (41.7-73.7) H 11/17/20 12:05 Lymphocytes % 4.2 % (15.3-44.8) L 11/17/20 12:05 Monocytes % 7.8 % (3.3-12.3) 11/17/20 12:05 Eosinophils % 0.0 % (0-4.4) 11/17/20 12:05 Basophils % 0.3 % (0-1.3) 11/17/20 12:05 Absolute Neutrophils 19.7 K/uL (1.8-8.0) H 11/17/20 12:05 Segmented Neutrophils 87 % (40-80) H 11/17/20 12:05 Absolute Lymphocytes 0.9 K/uL (0.7-4.9) 11/17/20 12:05 Lymphocytes 7 % (15-42) L 11/17/20 12:05 Monocytes 6 % (0-10) 11/17/20 12:05 Absolute Monocytes 1.8 K/uL (0.1-1.3) H 11/17/20 12:05 Absolute Eosinophils 0.0 K/uL (0-0.5) 11/17/20 12:05 Absolute Basophils 0.1 K/uL (0-0.5) 11/17/20 12:05 Platelet Estimate Incr 11/17/20 12:05 Anisocytosis Slight 11/17/20 12:05 Morphology Comment Noted (NOT SEEN) 11/17/20 12:05 PT 18.2 SECONDS (9.5-12.5) H 11/17/20 12:05 INR 1.58 11/17/20 12:05 APTT 29.5 SECONDS (24.3-36.9) 11/17/20 12:05 Sodium 130 mmol/L (136-145) L 11/17/20 12:05 Potassium 4.7 mmol/L (3.5-5.1) 11/17/20 12:05 Chloride 95 mmol/L (98-107) L 11/17/20 12:05 Carbon Dioxide 16 mmol/L (21-32) L 11/17/20 12:05 BUN 52 mg/dL (7-18) H 11/17/20 12:05 Creatinine 5.29 mg/dL (0.55-1.3) H* 11/17/20 12:05 Estimated GFR 12 mL/min (=/>90) L 11/17/20 12:05 Glucose 141 mg/dL (74-106) H 11/17/20 12:05 Lactic Acid 6.4 11/17/20 12:05 Calcium 8.2 mg/dL (8.5-10.1) L 11/17/20 12:05 Total Bilirubin 0.6 mg/dL (0.2-1.0) 11/17/20 12:05 Direct Bilirubin 0.2 mg/dL (0-0.2) 11/17/20 12:05 AST 50 U/L (15-37) H 11/17/20 12:05 ALT 18 U/L (12-78) 11/17/20 12:05 Alkaline Phosphatase 100 U/L (45-117) 11/17/20 12:05 Creatine Kinase 1771 U/L (39-308) H* 11/17/20 12:05 Rapid Troponin I < 0.02 ng/mL (0.0-0.045) 11/17/20 12:05 Serum Total Protein 8.6 g/dL (6.4-8.2) H 11/17/20 12:05 Albumin 2.9 g/dL (3.4-5.0) L 11/17/20 12:05 Globulin 5.7 g/dL (2.3-3.5) H 11/17/20 12:05 Albumin/Globulin Ratio 0.5 (1.1-1.8) L 11/17/20 12:05 Procalcitonin 376.15 ng/mL (<0.050) H 11/17/20 12:05 Urine pH 5.0 (5.0-7.0) 11/17/20 12:55 Ur Specific [place] >=1.030 (1.005-1.030) 11/17/20 12:55 Glucose (UA)(Auto) Negative (Negative) 11/17/20 12:55 Urine Ketones Trace (Negative) H 11/17/20 12:55 Urine Blood 3+ (Negative) H 11/17/20 12:55 Urine Nitrite Negative (Negative) 11/17/20 12:55 Ur Leukocyte Esterase 1+ (Negative) H 11/17/20 12:55 Urine RBC 5-10 /HPF (NONE SEEN) H 11/17/20 12:56 Urine WBC 10-20 /HPF (<5) H 11/17/20 12:56 Ur Squamous Epith Cells 5-10 /HPF (NONE SEEN) H 11/17/20 12:56 Urine Bacteria <20 /HPF (NONE SEEN) 11/17/20 12:56 Urine Mucus 2+ /HPF (NONE SEEN) 11/17/20 12:56 Urine Culture Reflexed Reflexed 11/17/20 12:56 Urine Total Protein 2+ (Negative) H 11/17/20 12:55 Opiates Screen Negative (NEGATIVE) 11/17/20 12:56 Methadone Screen Negative (NEGATIVE) 11/17/20 12:56 Ur Barbiturates Screen Negative (NEGATIVE) 11/17/20 12:56 Ur Phencyclidine Scrn Negative (NEGATIVE) 11/17/20 12:56 Amphetamines Screen Positive (NEGATIVE) H 11/17/20 12:56 Benzodiazepines Screen Negative (NEGATIVE) 11/17/20 12:56 Cocaine Screen Positive (NEGATIVE) H 11/17/20 12:56 Ur THC Screen Negative (NEGATIVE) 11/17/20 12:56 SARS-CoV-2 Rap RNA(RT-PCR) Negative (NEGATIVE) 11/17/20 12:30 Microbiology Data (last 24 hrs): 11/17/20 12:05 Blood - Blood Aerobic Blood Culture - Final Proteus Mirabilis Klebsiella Pneumoniae Esbl 11/17/20 12:05 Blood - Blood Blood Culture Gram Stain - Final 11/17/20 12:05 Blood - Blood Anaerobic Blood Culture - Final Proteus Mirabilis Klebsiella Pneumoniae Esbl 11/17/20 12:05 Blood - Blood Gram Stain - Final 11/17/20 12:22 Blood - Blood Aerobic Blood Culture - Final Proteus Mirabilis Klebsiella Pneumoniae Esbl 11/17/20 12:22 Blood - Blood Blood Culture Gram Stain - Final 11/17/20 12:22 Blood - Blood Anaerobic Blood Culture - Final Proteus Mirabilis Klebsiella Pneumoniae Esbl 11/17/20 12:22 Blood - Blood Gram Stain - Final Assessment And Plan - Plan Physical Exam: General: Oriented x1, Cachectic, Confused HEENT: Atraumatic, Normocephalic Neck: Supple, 2+ carotid pulse no bruit Respiratory: Clear to auscultation bilaterally, Normal air movement Cardiovascular: No edema, Normal pulses, Regular rate/rhythm Capillary refill: <2 Seconds Gastrointestinal: Other (colostomy bag) Musculoskeletal: Other (Left AKA, right 5th toe amputation) Integumentary: Pressure ulcer (Bilateral stage IV ischial decubitus ulcers. Draining ban blood, status post surgical I and D performed on 11/17 mary wound tissue erythematous), Other (Diffuse maculopapular rash) Neurological: Other (Paraplegic) Urinary: Scott catheter External genitalia: Other (Right groin central line) Rectal: Deferred Other Physical/Emotional Findings: Agitated/anxious Conclusions/Impression: Antibiotics: Current: merum start: 11/19 stop: -- Doxycycline Start: 11/17 Stop:-- DC: Cefepime Start: 11/17 Stop: 11/19 Patient received single dose of vancomycin on 11/17 Assessment/PLAN: Severe urosepsis with bacteremia and UTI Severe sepsis on admission. Blood cultures performed on 11/17 growing gram- negative rods in 4/4 bottles--growing an ESBL producing Klebsiella and Proteus mirabilis. Repeat blood cultures performed on 11/19 crying a coagulase-negative Staph in 1/2 bottles, likely contaminant. Blood cultures taken on 11/20 pending. Urine culture performed on 11/17 growing ESBL producing Klebsiella, cefepime discontinued in meropenem started. Continue IV doxycycline at this time. Source of bacteremia likely urine. Leukocytosis with left shift WBC down trending, continue to monitor WBC and fever curve. Patient responding to antibiotic therapy. Bilateral stage IV ischial decubitus ulcer The patient underwent surgical I and D on 11/17. Patient's taken back to OR on 11/19 and remaining necrotic tissue was removed, wound VAC has been placed to bilateral wounds. Wound care per surgical team. Right ischial aspect of pelvis exposed, Patient will need to be treated for osteomyelitis with IV antibiotics for total duration of 6 weeks. Patient currently has right groin central line placed, recommend more permanent line placement. Paraplegic with bed bound/wheelchair-bound status, anemia of chronic disease, protein caloric malnutrition, dehydration All aspects which hinder wound healing ability. Recommend placement of air mattress. Recommend repositioning patient in bed every 2 hr during waking hr. Avoid direct pressure over wounds. Patient started on vitamins to promote wound healing including vitamin-C, vitamin-D, and zinc. Vitamin-D level pending. Recommend supplemental Ensure protein drinks. Diffuse maculopapular rash Rash present on admission, not likely due to any medication/antibiotic therapy. Rash likely due to patient being found in did show for an estimated 2 days. Per EMS patient was found to have antibiotics all over his body. Continue treatment with Benadryl. RPR to rule out syphilis pending Acute encephalopathy, Rhabdomyolysis, MADDIE, Polysubstance abuse Medical management per primary team Renal function worsening Plan of care discussed with Dr. Hobbs Thank you for consultation Physician Review: Patient Assessed, Agree with Above Assessment and Plan
[2020-11-21] MEDS ORDERED: POTASS/SODIUM PHOSPHATE 1 PKT POWD.PACK PO ONE (13:00)
[2020-11-21] MEDS: FENTANYL CITR 100 MCG/2 ML IV PRN (14:00)
--- NOTE | 2020-11-21 14:34 | P.PN ---
Subjective Date of Service: 11/21/20 Chief Complaint: AMS, dehydration. Patient has no new complain. Patient seems to be dysphoric today, not forthcoming with answers to questions. Repeat blood cultures growing coagulase negative Staph Status post sacral wound debridement x 2. Last debridement 11/19 Skin rash is improving. Physical Examination - Vital Signs Temperature: 98.6 F Blood Pressure: 180/82 Pulse: 64 Respirations: 18 Pulse Ox (%): 99 - Physical Exam General: Alert, In no apparent distress, Oriented x3 HEENT: Mucous membr. moist/pink Neck: JVD not distended Respiratory: Clear to auscultation bilaterally, Normal air movement Cardiovascular: No edema, Regular rate/rhythm, Normal S1 S2 Gastrointestinal: Soft and benign, Non-distended, Other (Colostomy, suprapubic stoma) Integumentary: Other (Diffuse papular erythematous rash improving) Neurological: Normal strength at 5/5 x4 extr Other Physical/Emotional Findings: Agitated/anxious - Studies Microbiology Data (last 24 hrs): 11/17/20 12:05 Blood - Blood Aerobic Blood Culture - Final Proteus Mirabilis Klebsiella Pneumoniae Esbl 11/17/20 12:05 Blood - Blood Blood Culture Gram Stain - Final 11/17/20 12:05 Blood - Blood Anaerobic Blood Culture - Final Proteus Mirabilis Klebsiella Pneumoniae Esbl 11/17/20 12:05 Blood - Blood Gram Stain - Final 11/17/20 12:22 Blood - Blood Aerobic Blood Culture - Final Proteus Mirabilis Klebsiella Pneumoniae Esbl 11/17/20 12:22 Blood - Blood Blood Culture Gram Stain - Final 11/17/20 12:22 Blood - Blood Anaerobic Blood Culture - Final Proteus Mirabilis Klebsiella Pneumoniae Esbl 11/17/20 12:22 Blood - Blood Gram Stain - Final Assessment And Plan - Current Problems (Diagnosis) (1) Gram negative sepsis Current Visit: Yes Status: Acute (2) Infected decubitus ulcer Current Visit: Yes Status: Acute (3) Osteomyelitis of sacrum Current Visit: Yes Status: Acute (4) Polysubstance abuse Current Visit: Yes Status: Acute (5) Erythematous rash Current Visit: Yes Status: Acute (6) Acute renal failure Current Visit: Yes Status: Acute (7) Paraplegia Current Visit: Yes Status: Acute (8) Gram-positive cocci bacteremia Current Visit: Yes Status: Acute - Plan Continue IV meropenem for ESBL Klebsiella UTI and Proteus Patient started on IV and doxycycline. Another blood culture growing coagulase negative Staph Follow up repeat blood cultures for bacteremia clearance. PICC line once no new blood culture growth x 48 hrs. Obtain echocardiogram to assess for endocarditis. Local wound care. Erythematous rash could be related to the gram-negative/positive sepsis. Rash is improving. MADDIE almost resolved. Nephrology is following Unremarkable renal ultrasound Continue IV hydration. Monitor for withdrawal symptoms giving polysubstance abuse. Monitor CBC and blood chemistry. Patient not a candidate for LTAC placement per social service.
--- NOTE | 2020-11-21 15:02 | P.PN ---
Date of Service: 11/21/20 Patient is currently stable, has large open wound on both ischial areas. Underwent a wound VAC change today with the nurses reported the wound looks well. He is currently on antibiotics, receiving pain medicine and awaiting placement. He would greatly benefit from a center that can provide ongoing wound care and help him plan and schedule a flap repair of this wound.
[2020-11-21] MEDS: MAGNESIUM CHLORIDE 64 MG TAB PO SCH (21:50)
[2020-11-22] MEDS: NA CHLORIDE 0.9% 1,000 ML IV SCH (01:31)
[2020-11-22] MEDS: Meropenem 1 GM/100 ML BAG IV SCH ×3 (01:31→16:40)
[2020-11-22] MEDS: MORPHINE 2 MG/ML SYR IV PRN ×4 (01:41→21:16)
[2020-11-22 02:39] LABS: RPR (Rapid Plasma Reagin) NON-REACT (NON-REACT)
[2020-11-22] MEDS: FENTANYL CITR 100 MCG/2 ML IV PRN ×3 (04:17→18:06)
[2020-11-22 07:27] LABS: Absolute Lymphocytes (CBC) 1.5 K/uL (0.7-4.9); Basophils % 0.2 % (0-1.3); Hematocrit 25.1 % (39.6-49.0); Lymphocytes % 11.1 % (15.3-44.8); MPV 7.9 fL (7.6-11.3); RBC Red Blood Cell Count 3.45 M/uL (4.33-5.43)
[2020-11-22 08:00] LABS: Albumin 1.8 g/dL (3.4-5.0); Phosphorus 3.5 mg/dL (2.5-4.9); Potassium 3.7 mmol/L (3.5-5.1)
[2020-11-22 08:07] LABS: Magnesium 1.4 mg/dL (1.8-2.4)
[2020-11-22] MEDS: MAGNESIUM CHLORIDE 64 MG TAB PO SCH ×2 (08:31→21:30)
[2020-11-22] MEDS: ZINC SULFATE 220 MG CAP PO SCH (08:32)
[2020-11-22] MEDS: ASPIRIN 81 MG CHEWABLE TABLET PO SCH (08:32)
[2020-11-22] MEDS: ASCORBIC ACID 500 MG TABLET PO SCH (08:32)
[2020-11-22] MEDS: DOXYCYCLINE 100 MG in NA CHLORIDE 0.9% 100 ML IVPB SCH ×2 (08:37→21:37)
[2020-11-22] MEDS: HEPARIN 5000 UNIT/ML 1 ML VIAL SQ SCH ×2 (08:39→21:00)
[2020-11-22] MEDS: JUVEN PACKET PO SCH ×2 (09:00→21:00)
[2020-11-22] MEDS ORDERED: Magnesium Sulfate 2gm IVPB 2 G/50 ML BAG IV ONE ×2 (09:00→10:00)
[2020-11-22] MEDS ORDERED: POTASSIUM CL SA 10 MEQ TAB PO ONE (09:00)
[2020-11-22] MEDS: SOD FERRIC GLUC COMPLX/SUCROSE 250 MG in NA CHLORIDE 0.9% 250 ML IV SCH (09:06)
[2020-11-22 11:14] LABS: HIV AG/AB 4TH GEN Non-reactive (Non-reactive)
--- NOTE | 2020-11-22 12:18 | PN ---
Date of Progress Note: 11/22/2020 Subjective: The patient was admitted with acute kidney injury secondary to toxic ATN, rhabdomyolysis. The patient's kidney function after hydration has been improved significantly. Physical Examination: Vital Signs: Blood pressure 128/70, pulse of 75, afebrile. The patient had good urine output of 4100, negative of 1100. Chest: Clear to auscultation. Heart: S1, S2. Regular. Abdomen: Soft, nontender. Colostomy. 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 Neuro: Alert. No focality. Laboratory Data: WBC 13.6, H and H 8/25.1, platelets 537. Sodium 140, potassium 3.7, bicarb 28, BUN 24, creatinine down to 1, GFR of 82, magnesium 1.4, phosphorus 3.5, calcium 8.1, albumin 1.8. Corrected calcium is 9.7. Current Medications: The patient is on/it include: 1. Doxycycline. 2. Meropenem. 3. Aspirin. 4. IV iron. 5. Calcium carbonate. 6. Labetalol. 7. IV fluid. Assessment And Plan: 1. Acute kidney injury secondary to. 2. rhabdomyolysis, prerenal, recovered, resolved. I am going to go ahead and discontinue IV fluid. 3. Hypocalcemia, corrected with the presence of recent rhabdomyolysis. I am going to discontinue calcium supplement. 4. Iron deficiency anemia. Continue supplement. 5. Hypokalemia, hypomagnesemia. We will supplement. 6. Urinary tract infection secondary to Klebsiella and Proteus mirabilis. Follow up Infectious Diseases. Continue meropenem. Time spent examining the patient [id number] placing order discussing with the patient reviewing data discussing the case with all of our subspecialty including hospitalist 45 minutes MESSI Voice ID: [id number] Report ID: [id number] FRITZ
--- NOTE | 2020-11-22 12:42 | P.PN ---
Subjective Date of Service: 11/22/20 Chief Complaint: AMS, dehydration. Patient has no new complain. Blood 11/19 cultures growing coagulase negative Staph. Repeat Blood culture 11/20: No growth to date Status post sacral wound debridement x 2. Last debridement 11/19 Physical Examination - Vital Signs Temperature: 99.4 F Blood Pressure: 128/70 Pulse: 75 Respirations: 16 Pulse Ox (%): 97 - Physical Exam General: Alert, In no apparent distress, Oriented x3 HEENT: Mucous membr. moist/pink Neck: JVD not distended Respiratory: Clear to auscultation bilaterally, Normal air movement Cardiovascular: Regular rate/rhythm, Normal S1 S2 Gastrointestinal: Soft and benign, Non-distended Integumentary: Other (Diffuse erythematous rash improving. Some rashes developed pustule.) Neurological: Normal strength at 5/5 x4 extr Other Physical/Emotional Findings: Agitated/anxious Assessment And Plan - Current Problems (Diagnosis) (1) Gram negative sepsis Current Visit: Yes Status: Acute (2) Infected decubitus ulcer Current Visit: Yes Status: Acute (3) Osteomyelitis of sacrum Current Visit: Yes Status: Acute (4) Polysubstance abuse Current Visit: Yes Status: Acute (5) Erythematous rash Current Visit: Yes Status: Acute (6) Acute renal failure Current Visit: Yes Status: Acute (7) Paraplegia Current Visit: Yes Status: Acute (8) Gram-positive cocci bacteremia Current Visit: Yes Status: Acute - Plan Continue IV meropenem for ESBL Klebsiella UTI and Proteus Patient started on IV doxycycline. Another blood culture growing coagulase negative Staph Repeat blood culture 11/20: No growth to date. Place PICC line tomorrow pending 48 hrs growth result. Leukocytosis significantly improved. Echocardiogram to assess for endocarditis requested. Local wound care. Wound VAC in place. General surgery recommended skin flap in the near future. Erythematous rash likely related to the gram-negative/positive sepsis. Rash is improving. MADDIE resolved. Nephrology input appreciated. Continue IV hydration. Monitor for withdrawal symptoms giving polysubstance abuse. Monitor CBC and blood chemistry. Patient not a candidate for LTAC placement per social service. Physician Review: Patient Assessed, Agree with Above Assessment and Plan
[2020-11-22 19:08] LABS: Hepatitis C Virus RNA (PCR)log <1.18 log IU/mL
[2020-11-23] MEDS: Meropenem 1 GM/100 ML BAG IV SCH ×3 (02:31→18:37)
[2020-11-23] MEDS: FENTANYL CITR 100 MCG/2 ML IV PRN ×2 (06:25→18:35)
[2020-11-23 06:47] LABS: Absolute Lymphocytes (CBC) 1.1 K/uL (0.7-4.9); Basophils % 0.2 % (0-1.3); Hematocrit 26.4 % (39.6-49.0)
[2020-11-23 07:01] LABS: Albumin 1.9 g/dL (3.4-5.0); BUN Blood Urea Nitrogen 14 mg/dL (7-18); Bicarbonate 31 mmol/L (21-32); Glucose Level 90 mg/dL (74-106); Phosphorus 3.2 mg/dL (2.5-4.9); Potassium 3.6 mmol/L (3.5-5.1); Sodium Level 139 mmol/L (136-145)
[2020-11-23 07:02] LABS: Magnesium 1.3 mg/dL (1.8-2.4)
[2020-11-23] MEDS ORDERED: POTASSIUM CL SA 10 MEQ TAB PO ONE (07:52)
[2020-11-23] MEDS ORDERED: Magnesium Sulfate 2gm IVPB 2 G/50 ML BAG IV ONE (07:53)
[2020-11-23] MEDS: HEPARIN 5000 UNIT/ML 1 ML VIAL SQ SCH ×2 (09:00→21:00)
[2020-11-23] MEDS: ZINC SULFATE 220 MG CAP PO SCH ×2 (09:00→09:56)
[2020-11-23] MEDS: JUVEN PACKET PO SCH ×3 (09:00→21:00)
[2020-11-23] MEDS: ASPIRIN 81 MG CHEWABLE TABLET PO SCH (09:56)
[2020-11-23] MEDS: ASCORBIC ACID 500 MG TABLET PO SCH (09:56)
[2020-11-23] MEDS: DOXYCYCLINE 100 MG in NA CHLORIDE 0.9% 100 ML IVPB SCH ×2 (09:56→22:09)
[2020-11-23] MEDS: MAGNESIUM CHLORIDE 64 MG TAB PO SCH ×2 (09:57→22:09)
[2020-11-23] MEDS: MORPHINE 2 MG/ML SYR IV PRN ×2 (10:18→22:41)
[2020-11-23] MEDS ORDERED: MAGNESIUM 50% 3 GM in NA CHLORIDE 0.9% 100 ML IV ONE (11:14)
--- NOTE | 2020-11-23 11:37 | P.PN ---
Subjective Date of Service: 11/23/20 Chief Complaint: AMS, dehydration. Patient has no new complain. Blood 11/19 cultures growing coagulase negative Staph. Repeat Blood culture 11/20: No growth to date Status post sacral wound debridement x 2. Last debridement 11/19. His rashes are much better and scaling. Physical Examination - Vital Signs Temperature: 99.3 F Blood Pressure: 119/66 Pulse: 74 Respirations: 74 Pulse Ox (%): 98 - Physical Exam General: In no apparent distress HEENT: Mucous membr. moist/pink Neck: JVD not distended Respiratory: Clear to auscultation bilaterally, Normal air movement Cardiovascular: No edema, Regular rate/rhythm, Normal S1 S2 Gastrointestinal: Soft and benign, Non-distended, Other (Colostomy) Musculoskeletal: Other (Left BKA) Integumentary: Other (Diffuse Erythematous rash significantly improved) Neurological: Other (No focal motor deficit.) Other Physical/Emotional Findings: Agitated/anxious Assessment And Plan - Current Problems (Diagnosis) (1) Gram negative sepsis Current Visit: Yes Status: Acute (2) Infected decubitus ulcer Current Visit: Yes Status: Acute (3) Osteomyelitis of sacrum Current Visit: Yes Status: Acute (4) Polysubstance abuse Current Visit: Yes Status: Acute (5) Erythematous rash Current Visit: Yes Status: Acute (6) Acute renal failure Current Visit: Yes Status: Acute (7) Paraplegia Current Visit: Yes Status: Acute (8) Gram-positive cocci bacteremia Current Visit: Yes Status: Acute - Plan Continue IV meropenem for ESBL Klebsiella UTI and Proteus Patient started on IV doxycycline. Another blood culture growing coagulase negative Staph Repeat blood culture 11/20: No growth to date. Place PICC line for outpatient IV antibiotics. Leukocytosis significantly improved. Echocardiogram is pending. Local wound care. Wound VAC in place. General surgery recommended skin flap in the near future. Erythematous rash likely related to the gram-negative/positive sepsis. Rash significantly improved. On hydrocortisone cream for the rash. MADDIE resolved. Nephrology input appreciated. Replete electrolytes as needed. Monitor CBC and blood chemistry. Patient not a candidate for LTAC placement per social service. Disposition to SNF. Physician Review: Patient Assessed, Agree with Above Assessment and Plan
--- NOTE | 2020-11-23 14:13 | PN ---
Date of Progress Note: 11/23/2020 Subjective: The patient was admitted with acute kidney injury secondary to rhabdomyolysis, prerenal. The patient had UTI. Physical Examination: General: When I saw the patient, the patient is lying in bed. Vital Signs: Blood pressure 122/60, pulse of 87, afebrile. The patient had good urine output of 4100. The patient feeling better. Chest: Clear to auscultation. Heart: S1, S2. Regular. Abdomen: Soft. Colostomy. Extremity: Below-knee amputation. Laboratory Data: WBC 9.8, H and H 8.4/26.4. Sodium 139, potassium 3.6, bicarb 31, BUN 14, creatinine 0.6, calcium 8.3, phosphorus 3.2, magnesium 1.3, albumin 1.9. Corrected calcium is 9.9. Current Medications: The patient on include; 1. Doxycycline. 2. Meropenem. 3. IV iron. 4. Heparin. 5. Tylenol. Assessment And Plan: 1. Acute kidney injury, multifactorial, secondary to prerenal/rhabdomyolysis, recovered, resolved. We will discontinue IV fluid. 2. Hypocalcemia with the presence of recent rhabdomyolysis. Currently, calcium within normal limit. We will hold on any supplement. 3. Rhabdomyolysis, recovered, resolved. Discontinue IV fluid. 4. Urinary tract infection secondary to Klebsiella pneumonia and Proteus mirabilis. Continue meropenem. Plan for PICC line. 5. Iron deficiency anemia. Continue IV iron. Time spent examining the patient [id number] placing order discussing with the patient reviewing data discussing the case with all of our subspecialty including hospitalist 45 minutes MESSI Voice ID: [id number] Report ID: [id number] FRITZ
[2020-11-23 18:22] LABS: HBsAG Nonreactive (Nonreactive)
[2020-11-24] MEDS: Meropenem 1 GM/100 ML BAG IV SCH (00:32)
[2020-11-24] MEDS: MORPHINE 2 MG/ML SYR IV PRN ×2 (06:04→20:35)
[2020-11-24 06:10] LABS: Absolute Lymphocytes (CBC) 1.9 K/uL (0.7-4.9); Basophils % 0.5 % (0-1.3); Hematocrit 27.8 % (39.6-49.0); RBC Red Blood Cell Count 3.74 M/uL (4.33-5.43)
[2020-11-24] MEDS: FENTANYL CITR 100 MCG/2 ML IV PRN ×2 (06:32→22:54)
[2020-11-24 06:33] LABS: BUN Blood Urea Nitrogen 10 mg/dL (7-18); Bicarbonate 31 mmol/L (21-32); Glucose Level 97 mg/dL (74-106); Phosphorus 3.4 mg/dL (2.5-4.9); Potassium 3.6 mmol/L (3.5-5.1); Sodium Level 140 mmol/L (136-145)
[2020-11-24 06:34] LABS: Magnesium 1.3 mg/dL (1.8-2.4)
--- NOTE | 2020-11-24 09:03 | ECHO ---
HEIGHT: 5 ft 10 in WEIGHT: 184 lb 9.6 oz DATE OF STUDY: 11/21/[address]: evelyn cortes 2-DIMENSIONAL: YES M.MODE: YES DOPPLER: YES COLOR FLOW: YES TDS: PORTABLE: DEFINITY: BUBBLE STUDY: DIAGNOSIS: BACTEREMIA CARDIAC HISTORY: CATHERIZATION: SURGERY: PROSTHETIC VALVE: PACEMAKER: MEASUREMENTS (cm) DIASTOLIC (NORMALS) SYSTOLIC (NORMALS) IVSd 0.9 (0.6-1.2) LA Diam 3.5 (1.9-4.0) LVEF 68% LVIDd 5.0 (3.5-5.7) LVIDs 3.1 (2.0-3.5) %FS 38% LVPWd 0.8 (0.6-1.2) Ao Diam 3.1 (2.0-3.7) 2 DIMENSIONAL ASSESSMENT: RIGHT ATRIUM: NORMAL LEFT ATRIUM: NORMAL RIGHT VENTRICLE: NORMAL LEFT VENTRICLE: NORMAL TRICUSPID VALVE: NORMAL MITRAL VALVE: MILD MITRAL REGURGITATION PULMONIC VALVE: NORMAL AORTIC VALVE: NORMAL PERICARDIAL EFFUSION: NONE AORTIC ROOT: NORMAL LEFT VENTRICULAR WALL MOTION: NORMAL DOPPLER/COLOR FLOW: SEE BELOW COMMENTS: NORMAL LEFT VENTRICULAR EJECTION FRACTION 60-65% WITH NORMAL WALL MOTION. MILD MITRAL REGURGITATION. MILD TRICUSPID REGURGITATION. NO VEGETATION IS SEEN ON THIS STUDY. TECHNOLOGIST: OH HERNANDEZ
--- NOTE | 2020-11-24 10:50 | P.PN ---
Subjective Date of Service: 11/24/20 Chief Complaint: AMS, dehydration. Patient seen examined at bedside, feeling slightly better. The rash seems to be improving however patient states symptoms are still present. Blood cultures performed on 11/20 showed no growth to date. RPR negative. Vitamin-D level pending. Review of Systems 10-point ROS is otherwise unremarkable Physical Examination - Vital Signs Temperature: 98.1 F Blood Pressure: 121/60 Pulse: 80 Respirations: 17 Pulse Ox (%): 98 - Physical Exam Other Physical/Emotional Findings: Agitated/anxious - Studies Laboratory Last Values WBC 22.40 K/uL (4.3-10.9) H* 11/17/20 12:05 RBC 4.82 M/uL (4.33-5.43) 11/17/20 12:05 Hgb 11.3 g/dL (13.6-17.9) L 11/17/20 12:05 Hct 35.9 % (39.6-49.0) L 11/17/20 12:05 MCV 74.4 fL (80-100) L 11/17/20 12:05 MCH 23.4 pg (27.0-35.0) L 11/17/20 12:05 MCHC 31.5 g/dL (32.0-36.0) L 11/17/20 12:05 RDW 18.4 % (12.1-15.2) H 11/17/20 12:05 Plt Count 709 K/uL (152-406) H 11/17/20 12:05 MPV 8.3 fL (7.6-11.3) 11/17/20 12:05 Neutrophils % 87.7 % (41.7-73.7) H 11/17/20 12:05 Lymphocytes % 4.2 % (15.3-44.8) L 11/17/20 12:05 Monocytes % 7.8 % (3.3-12.3) 11/17/20 12:05 Eosinophils % 0.0 % (0-4.4) 11/17/20 12:05 Basophils % 0.3 % (0-1.3) 11/17/20 12:05 Absolute Neutrophils 19.7 K/uL (1.8-8.0) H 11/17/20 12:05 Segmented Neutrophils 87 % (40-80) H 11/17/20 12:05 Absolute Lymphocytes 0.9 K/uL (0.7-4.9) 11/17/20 12:05 Lymphocytes 7 % (15-42) L 11/17/20 12:05 Monocytes 6 % (0-10) 11/17/20 12:05 Absolute Monocytes 1.8 K/uL (0.1-1.3) H 11/17/20 12:05 Absolute Eosinophils 0.0 K/uL (0-0.5) 11/17/20 12:05 Absolute Basophils 0.1 K/uL (0-0.5) 11/17/20 12:05 Platelet Estimate Incr 11/17/20 12:05 Anisocytosis Slight 11/17/20 12:05 Morphology Comment Noted (NOT SEEN) 11/17/20 12:05 PT 18.2 SECONDS (9.5-12.5) H 11/17/20 12:05 INR 1.58 11/17/20 12:05 APTT 29.5 SECONDS (24.3-36.9) 11/17/20 12:05 Sodium 130 mmol/L (136-145) L 11/17/20 12:05 Potassium 4.7 mmol/L (3.5-5.1) 11/17/20 12:05 Chloride 95 mmol/L (98-107) L 11/17/20 12:05 Carbon Dioxide 16 mmol/L (21-32) L 11/17/20 12:05 BUN 52 mg/dL (7-18) H 11/17/20 12:05 Creatinine 5.29 mg/dL (0.55-1.3) H* 11/17/20 12:05 Estimated GFR 12 mL/min (=/>90) L 11/17/20 12:05 Glucose 141 mg/dL (74-106) H 11/17/20 12:05 Lactic Acid 6.4 11/17/20 12:05 Calcium 8.2 mg/dL (8.5-10.1) L 11/17/20 12:05 Total Bilirubin 0.6 mg/dL (0.2-1.0) 11/17/20 12:05 Direct Bilirubin 0.2 mg/dL (0-0.2) 11/17/20 12:05 AST 50 U/L (15-37) H 11/17/20 12:05 ALT 18 U/L (12-78) 11/17/20 12:05 Alkaline Phosphatase 100 U/L (45-117) 11/17/20 12:05 Creatine Kinase 1771 U/L (39-308) H* 11/17/20 12:05 Rapid Troponin I < 0.02 ng/mL (0.0-0.045) 11/17/20 12:05 Serum Total Protein 8.6 g/dL (6.4-8.2) H 11/17/20 12:05 Albumin 2.9 g/dL (3.4-5.0) L 11/17/20 12:05 Globulin 5.7 g/dL (2.3-3.5) H 11/17/20 12:05 Albumin/Globulin Ratio 0.5 (1.1-1.8) L 11/17/20 12:05 Procalcitonin 376.15 ng/mL (<0.050) H 11/17/20 12:05 Urine Color Cancelled 11/17/20 15:34 Urine Appearance Cancelled 11/17/20 15:34 Urine pH Cancelled 11/17/20 15:34 Ur Specific [place] Cancelled 11/17/20 15:34 Glucose (UA)(Auto) Cancelled 11/17/20 15:34 Urine Ketones Cancelled 11/17/20 15:34 Urine Blood Cancelled 11/17/20 15:34 Urine Nitrite Cancelled 11/17/20 15:34 Urine Bilirubin Cancelled 11/17/20 15:34 Urine Urobilinogen Cancelled 11/17/20 15:34 Ur Leukocyte Esterase Cancelled 11/17/20 15:34 Urine RBC 5-10 /HPF (NONE SEEN) H 11/17/20 12:56 Urine WBC 10-20 /HPF (<5) H 11/17/20 12:56 Ur Squamous Epith Cells 5-10 /HPF (NONE SEEN) H 11/17/20 12:56 Urine Bacteria <20 /HPF (NONE SEEN) 11/17/20 12:56 Urine Mucus 2+ /HPF (NONE SEEN) 11/17/20 12:56 Urine Culture Reflexed Reflexed 11/17/20 12:56 Urine Total Protein Cancelled 11/17/20 15:34 Opiates Screen Negative (NEGATIVE) 11/17/20 12:56 Methadone Screen Negative (NEGATIVE) 11/17/20 12:56 Ur Barbiturates Screen Negative (NEGATIVE) 11/17/20 12:56 Ur Phencyclidine Scrn Negative (NEGATIVE) 11/17/20 12:56 Amphetamines Screen Positive (NEGATIVE) H 11/17/20 12:56 Benzodiazepines Screen Negative (NEGATIVE) 11/17/20 12:56 Cocaine Screen Positive (NEGATIVE) H 11/17/20 12:56 Ur THC Screen Negative (NEGATIVE) 11/17/20 12:56 SARS-CoV-2 Rap RNA(RT-PCR) Negative (NEGATIVE) 11/17/20 12:30 Assessment And Plan - Plan Physical Exam: General: Oriented x1, Cachectic, Confused HEENT: Atraumatic, Normocephalic Neck: Supple, 2+ carotid pulse no bruit Respiratory: Clear to auscultation bilaterally, Normal air movement Cardiovascular: No edema, Normal pulses, Regular rate/rhythm Capillary refill: <2 Seconds Gastrointestinal: Other (colostomy bag) Musculoskeletal: Other (Left AKA, right 5th toe amputation) Integumentary: Pressure ulcer (Bilateral stage IV ischial decubitus ulcers. Draining ban blood, status post surgical I and D performed on 11/17 mary wound tissue erythematous), Other (Diffuse maculopapular rash) Neurological: Other (Paraplegic) Urinary: Scott catheter External genitalia: Other (Right groin central line) Rectal: Deferred Other Physical/Emotional Findings: Agitated/anxious Conclusions/Impression: Antibiotics: Current: merum start: 11/19 stop: -- Doxycycline Start: 11/17 Stop:-- DC: Cefepime Start: 11/17 Stop: 11/19 Patient received single dose of vancomycin on 11/17 Assessment/PLAN: Severe urosepsis with bacteremia and UTI Severe sepsis on admission. Blood cultures performed on 11/17 growing gram- negative rods in 4/4 bottles--growing an ESBL producing Klebsiella and Proteus mirabilis. Repeat blood cultures performed on 11/19 growing a coagulase-negative Staph in 1/2 bottles, likely contaminant. Blood cultures taken on 11/20 show NGTD. Urine culture performed on 11/17 growing ESBL producing Klebsiella, cefepime discontinued in meropenem started. Continue IV doxycycline at this time. Source of bacteremia likely urine. Leukocytosis with left shift WBC down trending, continue to monitor WBC and fever curve. Patient responding to antibiotic therapy. Bilateral stage IV ischial decubitus ulcer The patient underwent surgical I and D on 11/17. Patient's taken back to OR on 11/19 and remaining necrotic tissue was removed, wound VAC has been placed to bilateral wounds. Wound care per surgical team. Right ischial aspect of pelvis exposed, Patient will need to be treated for osteomyelitis with IV antibiotics for total duration of 6 weeks. Patient currently has right groin central line placed, recommend more permanent line placement. Paraplegic with bed bound/wheelchair-bound status, anemia of chronic disease, protein caloric malnutrition, dehydration All aspects which hinder wound healing ability. Recommend placement of air mattress. Recommend repositioning patient in bed every 2 hr during waking hr. Avoid direct pressure over wounds. Patient started on vitamins to promote wound healing including vitamin-C, vitamin-D, and zinc. Vitamin-D level pending. Recommend supplemental Ensure protein drinks. Diffuse maculopapular rash Rash present on admission, not likely due to any medication/antibiotic therapy. Rash likely due to patient being found in did show for an estimated 2 days. Per EMS patient was found to have antibiotics all over his body. Continue treatment with Benadryl. RPR to rule out syphilis pending Acute encephalopathy, Rhabdomyolysis, MADDIE, Polysubstance abuse Medical management per primary team Renal function worsening This below: The collected transfer patient to [facility] for antibiotic and wound care treatment however patient has no more acute care days. Patient was sent home on oral therapy, recommend AK flex and doxycycline. Patient will need antibiotic duration of 6 weeks with weekly labs including: CBC, CMP, C reactive protein, ESR. Plan of care discussed with Dr. Hobbs Thank you for consultation Physician Review: Patient Assessed, Agree with Above Assessment and Plan
[2020-11-24] MEDS ORDERED: NA CHLORIDE 0.9% 250 ML ONE (11:11)
--- NOTE | 2020-11-24 13:22 | P.PN ---
Subjective Date of Service: 11/24/20 Chief Complaint: AMS, dehydration. Patient has no new complain. Blood 11/19 cultures growing coagulase negative Staph. Repeat Blood culture 11/20: No growth to date Status post sacral wound debridement x 2. Last debridement 11/19. His rashes are almost resolved.. Physical Examination - Vital Signs Temperature: 98.1 F Blood Pressure: 121/60 Pulse: 80 Respirations: 17 Pulse Ox (%): 98 - Physical Exam General: Alert, In no apparent distress, Oriented x3 Neck: JVD not distended Respiratory: Clear to auscultation bilaterally, Normal air movement Cardiovascular: Regular rate/rhythm, Normal S1 S2 Gastrointestinal: Soft and benign, Non-distended Musculoskeletal: No swelling Integumentary: Other Neurological: Other (No focal motor deficit.) Other Physical/Emotional Findings: Agitated/anxious Assessment And Plan - Current Problems (Diagnosis) (1) Gram negative sepsis Current Visit: Yes Status: Acute (2) Infected decubitus ulcer Current Visit: Yes Status: Acute (3) Osteomyelitis of sacrum Current Visit: Yes Status: Acute (4) Polysubstance abuse Current Visit: Yes Status: Acute (5) Erythematous rash Current Visit: Yes Status: Acute (6) Acute renal failure Current Visit: Yes Status: Acute (7) Paraplegia Current Visit: Yes Status: Acute (8) Gram-positive cocci bacteremia Current Visit: Yes Status: Acute - Plan Continue IV antibiotics blood culture 11/19 growing coagulase negative Staph Repeat blood culture 11/20: No growth to date. Place PICC line for outpatient IV antibiotics. Leukocytosis significantly improved. Transthoracic Echocardiogram: No vegetation. Local wound care. Wound VAC in place. General surgery recommended skin flap in the near future. Erythematous rash likely related to the gram-negative/positive sepsis. Rash significantly improved. On hydrocortisone cream for the rash. MADDIE resolved. Nephrology input appreciated. Replete electrolytes as needed. Monitor CBC and blood chemistry. Patient not a candidate for LTAC placement per social service. Disposition to SNF for wound care and antibiotics. Physician Review: Patient Assessed, Agree with Above Assessment and Plan
[2020-11-24 14:12] LABS: White Blood Cell Scan OK (OK)
[2020-11-24 14:13] LABS: Blood Morphology Comment NOT SEEN (NOT SEEN); Platelet Estimate ADEQ
[2020-11-24] MEDS: DOXYCYCLINE 100 MG CAP PO SCH (20:35)
[2020-11-24] MEDS: ENSURE HIGH PROTEIN 237 ML CAN PO SCH ×2 (21:00)
--- NOTE | 2020-11-25 01:36 | PN ---
Date of Progress Note: 11/24/2020 Chief Complaint: Acute kidney injury secondary to rhabdomyolysis, prerenal azotemia, ATN, complicate d by rhabdomyolysis. Patient also was found to have urinary tract infection. Patient was found to h ave hypocalcemia in setting of rhabdomyolysis. Currently, currently calcium is improving. The patie nt although was found to have hypomagnesemia and is requiring replacement. Review of Systems: Denies complaints. Physical Examination: Lungs: Clear to auscultation bilaterally. Heart: S1 and S2. Abdomen: Soft, benign. Extremities: [id number] amputation. Impression And Plan: 1.Acute kidney injury, multifactorial, secondary to prerenal azotemia, acute tubular necrosis and rh abdomyolysis. Renal function in the past improved to baseline. Plan is to discontinue IV fluids. M onitor CK level. 2.Hypocalcemia secondary to rhabdomyolysis. Continue supplementation. Monitor magnesium level and continue supplementation for hypomagnesemia. 3.Urinary tract infection. The patient is on antibiotics for Klebsiella pneumoniae and Proteus [place] bilis. 4.Urinary tract infection. Continue with meropenem. MARQUITA/MODL Voice ID: [id number] Report ID: [id number]
[2020-11-25] MEDS: Meropenem 1 GM/100 ML BAG IV SCH ×3 (04:30→14:26)
[2020-11-25] MEDS: MORPHINE 2 MG/ML SYR IV PRN (05:31)
[2020-11-25 05:47] LABS: Absolute Lymphocytes (CBC) 1.5 K/uL (0.7-4.9); Basophils % 0.5 % (0-1.3); Hematocrit 26.9 % (39.6-49.0); Lymphocytes % 17.7 % (15.3-44.8); MPV 7.6 fL (7.6-11.3); RBC Red Blood Cell Count 3.66 M/uL (4.33-5.43)
[2020-11-25 06:03] LABS: BUN Blood Urea Nitrogen 14 mg/dL (7-18); Bicarbonate 31 mmol/L (21-32); Glucose Level 98 mg/dL (74-106); Potassium 3.9 mmol/L (3.5-5.1); Sodium Level 139 mmol/L (136-145)
[2020-11-25 06:05] LABS: Magnesium 1.1 mg/dL (1.8-2.4)
[2020-11-25] MEDS: ENSURE HIGH PROTEIN 237 ML CAN PO SCH ×2 (09:00→14:25)
[2020-11-25] MEDS: ZINC SULFATE 220 MG CAP PO SCH ×2 (09:00→09:41)
[2020-11-25] MEDS: ASPIRIN 81 MG CHEWABLE TABLET PO SCH ×2 (09:00→09:40)
[2020-11-25] MEDS: DRISDOL (VITAMIN D=ERGOCALCIFEROL) 50000 UNIT CAP PO SCH (09:00)
[2020-11-25] MEDS: JUVEN PACKET PO SCH ×2 (09:00→21:33)
[2020-11-25] MEDS: FENTANYL CITR 100 MCG/2 ML IV PRN ×3 (09:36→21:32)
[2020-11-25] MEDS: ASCORBIC ACID 500 MG TABLET PO SCH ×2 (09:40→09:42)
[2020-11-25] MEDS: DOXYCYCLINE 100 MG CAP PO SCH (09:40)
--- NOTE | 2020-11-25 11:11 | P.PN ---
Subjective Date of Service: 11/25/20 Chief Complaint: AMS, dehydration. Patient seen examined at bedside, doing well no acute complaints. Afebrile, WBC within normal range. Doxycycline discontinued, continue with meropenem. Review of Systems 10-point ROS is otherwise unremarkable Physical Examination - Vital Signs Temperature: 97.8 F Blood Pressure: 108/67 Pulse: 87 Respirations: 20 Pulse Ox (%): 99 - Physical Exam Other Physical/Emotional Findings: Agitated/anxious - Studies Laboratory Last Values WBC 22.40 K/uL (4.3-10.9) H* 11/17/20 12:05 RBC 4.82 M/uL (4.33-5.43) 11/17/20 12:05 Hgb 11.3 g/dL (13.6-17.9) L 11/17/20 12:05 Hct 35.9 % (39.6-49.0) L 11/17/20 12:05 MCV 74.4 fL (80-100) L 11/17/20 12:05 MCH 23.4 pg (27.0-35.0) L 11/17/20 12:05 MCHC 31.5 g/dL (32.0-36.0) L 11/17/20 12:05 RDW 18.4 % (12.1-15.2) H 11/17/20 12:05 Plt Count 709 K/uL (152-406) H 11/17/20 12:05 MPV 8.3 fL (7.6-11.3) 11/17/20 12:05 Neutrophils % 87.7 % (41.7-73.7) H 11/17/20 12:05 Lymphocytes % 4.2 % (15.3-44.8) L 11/17/20 12:05 Monocytes % 7.8 % (3.3-12.3) 11/17/20 12:05 Eosinophils % 0.0 % (0-4.4) 11/17/20 12:05 Basophils % 0.3 % (0-1.3) 11/17/20 12:05 Absolute Neutrophils 19.7 K/uL (1.8-8.0) H 11/17/20 12:05 Segmented Neutrophils 87 % (40-80) H 11/17/20 12:05 Absolute Lymphocytes 0.9 K/uL (0.7-4.9) 11/17/20 12:05 Lymphocytes 7 % (15-42) L 11/17/20 12:05 Monocytes 6 % (0-10) 11/17/20 12:05 Absolute Monocytes 1.8 K/uL (0.1-1.3) H 11/17/20 12:05 Absolute Eosinophils 0.0 K/uL (0-0.5) 11/17/20 12:05 Absolute Basophils 0.1 K/uL (0-0.5) 11/17/20 12:05 Platelet Estimate Incr 11/17/20 12:05 Anisocytosis Slight 11/17/20 12:05 Morphology Comment Noted (NOT SEEN) 11/17/20 12:05 PT 18.2 SECONDS (9.5-12.5) H 11/17/20 12:05 INR 1.58 11/17/20 12:05 APTT 29.5 SECONDS (24.3-36.9) 11/17/20 12:05 Sodium 130 mmol/L (136-145) L 11/17/20 12:05 Potassium 4.7 mmol/L (3.5-5.1) 11/17/20 12:05 Chloride 95 mmol/L (98-107) L 11/17/20 12:05 Carbon Dioxide 16 mmol/L (21-32) L 11/17/20 12:05 BUN 52 mg/dL (7-18) H 11/17/20 12:05 Creatinine 5.29 mg/dL (0.55-1.3) H* 11/17/20 12:05 Estimated GFR 12 mL/min (=/>90) L 11/17/20 12:05 Glucose 141 mg/dL (74-106) H 11/17/20 12:05 Lactic Acid 6.4 11/17/20 12:05 Calcium 8.2 mg/dL (8.5-10.1) L 11/17/20 12:05 Total Bilirubin 0.6 mg/dL (0.2-1.0) 11/17/20 12:05 Direct Bilirubin 0.2 mg/dL (0-0.2) 11/17/20 12:05 AST 50 U/L (15-37) H 11/17/20 12:05 ALT 18 U/L (12-78) 11/17/20 12:05 Alkaline Phosphatase 100 U/L (45-117) 11/17/20 12:05 Creatine Kinase 1771 U/L (39-308) H* 11/17/20 12:05 Rapid Troponin I < 0.02 ng/mL (0.0-0.045) 11/17/20 12:05 Serum Total Protein 8.6 g/dL (6.4-8.2) H 11/17/20 12:05 Albumin 2.9 g/dL (3.4-5.0) L 11/17/20 12:05 Globulin 5.7 g/dL (2.3-3.5) H 11/17/20 12:05 Albumin/Globulin Ratio 0.5 (1.1-1.8) L 11/17/20 12:05 Procalcitonin 376.15 ng/mL (<0.050) H 11/17/20 12:05 Urine Color Cancelled 11/17/20 15:34 Urine Appearance Cancelled 11/17/20 15:34 Urine pH Cancelled 11/17/20 15:34 Ur Specific [place] Cancelled 11/17/20 15:34 Glucose (UA)(Auto) Cancelled 11/17/20 15:34 Urine Ketones Cancelled 11/17/20 15:34 Urine Blood Cancelled 11/17/20 15:34 Urine Nitrite Cancelled 11/17/20 15:34 Urine Bilirubin Cancelled 11/17/20 15:34 Urine Urobilinogen Cancelled 11/17/20 15:34 Ur Leukocyte Esterase Cancelled 11/17/20 15:34 Urine RBC 5-10 /HPF (NONE SEEN) H 11/17/20 12:56 Urine WBC 10-20 /HPF (<5) H 11/17/20 12:56 Ur Squamous Epith Cells 5-10 /HPF (NONE SEEN) H 11/17/20 12:56 Urine Bacteria <20 /HPF (NONE SEEN) 11/17/20 12:56 Urine Mucus 2+ /HPF (NONE SEEN) 11/17/20 12:56 Urine Culture Reflexed Reflexed 11/17/20 12:56 Urine Total Protein Cancelled 11/17/20 15:34 Opiates Screen Negative (NEGATIVE) 11/17/20 12:56 Methadone Screen Negative (NEGATIVE) 11/17/20 12:56 Ur Barbiturates Screen Negative (NEGATIVE) 11/17/20 12:56 Ur Phencyclidine Scrn Negative (NEGATIVE) 11/17/20 12:56 Amphetamines Screen Positive (NEGATIVE) H 11/17/20 12:56 Benzodiazepines Screen Negative (NEGATIVE) 11/17/20 12:56 Cocaine Screen Positive (NEGATIVE) H 11/17/20 12:56 Ur THC Screen Negative (NEGATIVE) 11/17/20 12:56 SARS-CoV-2 Rap RNA(RT-PCR) Negative (NEGATIVE) 11/17/20 12:30 Assessment And Plan - Plan Physical Exam: General: Oriented x1, Cachectic, Confused HEENT: Atraumatic, Normocephalic Neck: Supple, 2+ carotid pulse no bruit Respiratory: Clear to auscultation bilaterally, Normal air movement Cardiovascular: No edema, Normal pulses, Regular rate/rhythm Capillary refill: <2 Seconds Gastrointestinal: Other (colostomy bag) Musculoskeletal: Other (Left AKA, right 5th toe amputation) Integumentary: Pressure ulcer (Bilateral stage IV ischial decubitus ulcers. Draining ban blood, status post surgical I and D performed on 11/17 mary wound tissue erythematous), Other (Diffuse maculopapular rash) Neurological: Other (Paraplegic) Urinary: Scott catheter External genitalia: Other (Right groin central line) Rectal: Deferred Other Physical/Emotional Findings: Agitated/anxious Conclusions/Impression: Antibiotics: Current: merum start: 11/19 stop: -- Doxycycline Start: 11/17 Stop: 11/25 DC: Cefepime Start: 11/17 Stop: 11/19 Patient received single dose of vancomycin on 11/17 Assessment/PLAN: Severe urosepsis with bacteremia and UTI Severe sepsis on admission. Blood cultures performed on 11/17 growing gram- negative rods in 4/4 bottles--growing an ESBL producing Klebsiella and Proteus mirabilis. Repeat blood cultures performed on 11/19 growing a coagulase-negative Staph in 1/2 bottles, likely contaminant. Blood cultures taken on 11/20 show NGTD. Urine culture performed on 11/17 growing ESBL producing Klebsiella, cefepime discontinued in meropenem started. Source of bacteremia likely urine. Leukocytosis with left shift WBC down trending, continue to monitor WBC and fever curve. Patient responding to antibiotic therapy. Bilateral stage IV ischial decubitus ulcer The patient underwent surgical I and D on 11/17. Patient's taken back to OR on 11/19 and remaining necrotic tissue was removed, wound VAC has been placed to bilateral wounds. Wound care per surgical team. Right ischial aspect of pelvis exposed, Patient will need to be treated for osteomyelitis with IV antibiotics for total duration of 6 weeks. Patient currently has right groin central line placed, recommend more permanent line placement. Paraplegic with bed bound/wheelchair-bound status, anemia of chronic disease, protein caloric malnutrition, dehydration All aspects which hinder wound healing ability. Recommend placement of air mattress. Recommend repositioning patient in bed every 2 hr during waking hr. Avoid direct pressure over wounds. Patient started on vitamins to promote wound healing including vitamin-C, vitamin-D, and zinc. Vitamin-D level pending. Recommend supplemental Ensure protein drinks. Diffuse maculopapular rash Rash present on admission, not likely due to any medication/antibiotic therapy. Rash likely due to patient being found in did show for an estimated 2 days. Per EMS patient was found to have antibiotics all over his body. Continue treatment with Benadryl. RPR to rule out syphilis pending Acute encephalopathy, Rhabdomyolysis, MADDIE, Polysubstance abuse Medical management per primary team Renal function worsening Dispo: Would prefer to transfer patient to [facility] for antibiotic and wound care treatment however patient has no more acute care days. Patient will likely be sent to [facility] on merum. Patient will need antibiotic duration of 6 weeks with weekly labs including: CBC, CMP, C reactive protein, ESR. Plan of care discussed with Dr. Hobbs Thank you for consultation Physician Review: Patient Assessed, Agree with Above Assessment and Plan
[2020-11-25] MEDS: SOD FERRIC GLUC COMPLX/SUCROSE 250 MG in NA CHLORIDE 0.9% 250 ML IV SCH (12:00)
[2020-11-25] MEDS: MAGNESIUM 50% 3 GM in NA CHLORIDE 0.9% 100 ML IV SCH ×2 (12:03→14:03)
--- NOTE | 2020-11-25 12:56 | P.PN ---
Subjective Date of Service: 11/25/20 Chief Complaint: AMS, dehydration. Subjective: Improving (slowly improving, continue with occasional pains, states he is tired of going through this "over and over", brought up idea of hospice today) Review of Systems 10-point ROS is otherwise unremarkable Physical Examination - Vital Signs Temperature: 98.5 F Blood Pressure: 119/73 Pulse: 100 Respirations: 18 Pulse Ox (%): 100 - Physical Exam Other Physical/Emotional Findings: Agitated/anxious Assessment & Plan Physician Review Additional Text: Physical exam GEN: Alert, oriented, NAD HEENT: Normal conjunctiva, sclera anicteric CV: Regular rate and rhythm, no edema Pulm: Nonlabored respiration on room air ABD: Soft, nontender, nondistended Integumentary: mild erythema along r side of body, dry peeling skin Neuro: Normal speech stout catheter in place Problem list Acute metabolic encephalopathy secondary to sepsis, resolved Acute renal failure, prerenal secondary to dehydration, resolved Rhabdomyolysis, resolved Bilateral ischial decubitus ulceration Sepsis secondary to decubitus ulcer/osteomyelitis, with bacteremia Anemia chronic disease Polysubstance abuse Paraplegia Continue IV meropenem blood culture 11/17 grew Proteus, Klebsiella ESBL Repeat blood culture 11/20: No growth to date. PICC line for outpatient IV antibiotics ordered. Patient refused yesterday Leukocytosis improved Transthoracic Echocardiogram: No vegetation. Local wound care. Wound VAC in place. General surgery recommended skin flap in the near future. Erythematous rash likely related to the gram-negative/positive sepsis. Rash significantly improved /ant bites On hydrocortisone cream for the rash. MADDIE resolved. Nephrology input appreciated. Patient not a candidate for LTAC placement per social service. Dispo: SNF for wound care and IV antibiotics, will need 6 weeks total meropenem will need skin flap in near future Time Spent Managing Pts Care (In Minutes): 40
--- NOTE | 2020-11-25 13:12 | PN ---
Date of Progress Note: 11/25/2020 Subjective: The patient was admitted with acute kidney injury secondary to rhabdo/prerenal. The patient found to have UTI and hypocalcemia. The patient was treated. Kidney function has normalized. The patient has persistent hypokalemia. Physical Examination: Vital Signs: Blood pressure 108/67, pulse of 87, afebrile. The patient had good urine output of 2600. Chest: Clear to auscultation. Heart: S1, S2. Regular. Abdomen: Soft, nontender. No organomegaly. Colostomy. Extremity: Left above-knee amputation. No edema. Neurologic: Alert. No focality. Laboratory Data: WBC 8.2, H and H 8.4/26.9. Sodium 139, potassium 3.9, bicarb 31, BUN 14, creatinine 0.6, calcium 8.3, magnesium 1.1, albumin 1.9. Corrected calcium is 9.9. Current Medications: The patient on include; 1. Aspirin. 2. Meropenem. 3. IV iron. 4. Tylenol. 5. Zofran. 6. Hydrocortisone. 7. Vitamin D. Assessment And Plan: 1. Acute kidney injury, multifactorial, secondary to prerenal, superimposed with rhabdomyolysis, recovered, resolved, normal volume. We will continue to monitor the patient. The patient off IV fluids. 2. Hypocalcemia, resolved. No need for supplement. 3. Hypomagnesemia, persisted. I am going to replace IV and orally today. We will send for urine electrolyte to evaluate any salt wasting and I am going to start the patient on amiloride. 4. Iron deficiency anemia. Continue IV iron. 5. Rhabdomyolysis, resolved. 6. Urinary tract infection secondary to Klebsiella pneumonia and Proteus mirabilis. Continue current meropenem and we will follow up with primary. Time spent examining the patient [id number] placing order discussing with the patient reviewing data discussing the case with all of our subspecialty including hospitalist 45 minutes MESSI Voice ID: [id number] Report ID: [id number]
[2020-11-25] MEDS: DIPHENHYDRAMINE 50 MG/ML VIAL IV PRN (14:09)
[2020-11-26] MEDS: Meropenem 1 GM/100 ML BAG IV SCH ×3 (00:09→17:23)
[2020-11-26] MEDS: FENTANYL CITR 100 MCG/2 ML IV PRN ×4 (01:34→14:37)
[2020-11-26 06:20] VITALS: BMI 26.4
[2020-11-26 06:45] LABS: BUN Blood Urea Nitrogen 12 mg/dL (7-18); Bicarbonate 29 mmol/L (21-32); Glucose Level 97 mg/dL (74-106); Magnesium 2.1 mg/dL (1.8-2.4); Potassium 4.3 mmol/L (3.5-5.1); Sodium Level 139 mmol/L (136-145)
[2020-11-26] MEDS: ASPIRIN 81 MG CHEWABLE TABLET PO SCH (09:26)
[2020-11-26] MEDS: ASCORBIC ACID 500 MG TABLET PO SCH (09:26)
[2020-11-26] MEDS: MAGNESIUM OXIDE 400 MG TAB PO SCH ×2 (09:26→21:00)
[2020-11-26] MEDS: ZINC SULFATE 220 MG CAP PO SCH (09:27)
[2020-11-26] MEDS: AMILORIDE HCL 5 MG TABLET PO SCH (09:27)
[2020-11-26] MEDS: JUVEN PACKET PO SCH ×2 (09:31→21:00)
[2020-11-26] MEDS: ENSURE HIGH PROTEIN 237 ML CAN PO SCH ×2 (09:32→22:12)
--- NOTE | 2020-11-26 10:37 | P.PN ---
Subjective Date of Service: 11/26/20 Chief Complaint: AMS, dehydration. Patient seen examined at bedside, considering hospice. Review of Systems 10-point ROS is otherwise unremarkable Physical Examination - Vital Signs Temperature: 97.5 F Blood Pressure: 137/79 Pulse: 66 Respirations: 16 Pulse Ox (%): 96 - Physical Exam Other Physical/Emotional Findings: Agitated/anxious - Studies Laboratory Last Values WBC 22.40 K/uL (4.3-10.9) H* 11/17/20 12:05 RBC 4.82 M/uL (4.33-5.43) 11/17/20 12:05 Hgb 11.3 g/dL (13.6-17.9) L 11/17/20 12:05 Hct 35.9 % (39.6-49.0) L 11/17/20 12:05 MCV 74.4 fL (80-100) L 11/17/20 12:05 MCH 23.4 pg (27.0-35.0) L 11/17/20 12:05 MCHC 31.5 g/dL (32.0-36.0) L 11/17/20 12:05 RDW 18.4 % (12.1-15.2) H 11/17/20 12:05 Plt Count 709 K/uL (152-406) H 11/17/20 12:05 MPV 8.3 fL (7.6-11.3) 11/17/20 12:05 Neutrophils % 87.7 % (41.7-73.7) H 11/17/20 12:05 Lymphocytes % 4.2 % (15.3-44.8) L 11/17/20 12:05 Monocytes % 7.8 % (3.3-12.3) 11/17/20 12:05 Eosinophils % 0.0 % (0-4.4) 11/17/20 12:05 Basophils % 0.3 % (0-1.3) 11/17/20 12:05 Absolute Neutrophils 19.7 K/uL (1.8-8.0) H 11/17/20 12:05 Segmented Neutrophils 87 % (40-80) H 11/17/20 12:05 Absolute Lymphocytes 0.9 K/uL (0.7-4.9) 11/17/20 12:05 Lymphocytes 7 % (15-42) L 11/17/20 12:05 Monocytes 6 % (0-10) 11/17/20 12:05 Absolute Monocytes 1.8 K/uL (0.1-1.3) H 11/17/20 12:05 Absolute Eosinophils 0.0 K/uL (0-0.5) 11/17/20 12:05 Absolute Basophils 0.1 K/uL (0-0.5) 11/17/20 12:05 Platelet Estimate Incr 11/17/20 12:05 Anisocytosis Slight 11/17/20 12:05 Morphology Comment Noted (NOT SEEN) 11/17/20 12:05 PT 18.2 SECONDS (9.5-12.5) H 11/17/20 12:05 INR 1.58 11/17/20 12:05 APTT 29.5 SECONDS (24.3-36.9) 11/17/20 12:05 Sodium 130 mmol/L (136-145) L 11/17/20 12:05 Potassium 4.7 mmol/L (3.5-5.1) 11/17/20 12:05 Chloride 95 mmol/L (98-107) L 11/17/20 12:05 Carbon Dioxide 16 mmol/L (21-32) L 11/17/20 12:05 BUN 52 mg/dL (7-18) H 11/17/20 12:05 Creatinine 5.29 mg/dL (0.55-1.3) H* 11/17/20 12:05 Estimated GFR 12 mL/min (=/>90) L 11/17/20 12:05 Glucose 141 mg/dL (74-106) H 11/17/20 12:05 Lactic Acid 6.4 11/17/20 12:05 Calcium 8.2 mg/dL (8.5-10.1) L 11/17/20 12:05 Total Bilirubin 0.6 mg/dL (0.2-1.0) 11/17/20 12:05 Direct Bilirubin 0.2 mg/dL (0-0.2) 11/17/20 12:05 AST 50 U/L (15-37) H 11/17/20 12:05 ALT 18 U/L (12-78) 11/17/20 12:05 Alkaline Phosphatase 100 U/L (45-117) 11/17/20 12:05 Creatine Kinase 1771 U/L (39-308) H* 11/17/20 12:05 Rapid Troponin I < 0.02 ng/mL (0.0-0.045) 11/17/20 12:05 Serum Total Protein 8.6 g/dL (6.4-8.2) H 11/17/20 12:05 Albumin 2.9 g/dL (3.4-5.0) L 11/17/20 12:05 Globulin 5.7 g/dL (2.3-3.5) H 11/17/20 12:05 Albumin/Globulin Ratio 0.5 (1.1-1.8) L 11/17/20 12:05 Procalcitonin 376.15 ng/mL (<0.050) H 11/17/20 12:05 Urine Color Cancelled 11/17/20 15:34 Urine Appearance Cancelled 11/17/20 15:34 Urine pH Cancelled 11/17/20 15:34 Ur Specific [place] Cancelled 11/17/20 15:34 Glucose (UA)(Auto) Cancelled 11/17/20 15:34 Urine Ketones Cancelled 11/17/20 15:34 Urine Blood Cancelled 11/17/20 15:34 Urine Nitrite Cancelled 11/17/20 15:34 Urine Bilirubin Cancelled 11/17/20 15:34 Urine Urobilinogen Cancelled 11/17/20 15:34 Ur Leukocyte Esterase Cancelled 11/17/20 15:34 Urine RBC 5-10 /HPF (NONE SEEN) H 11/17/20 12:56 Urine WBC 10-20 /HPF (<5) H 11/17/20 12:56 Ur Squamous Epith Cells 5-10 /HPF (NONE SEEN) H 11/17/20 12:56 Urine Bacteria <20 /HPF (NONE SEEN) 11/17/20 12:56 Urine Mucus 2+ /HPF (NONE SEEN) 11/17/20 12:56 Urine Culture Reflexed Reflexed 11/17/20 12:56 Urine Total Protein Cancelled 11/17/20 15:34 Opiates Screen Negative (NEGATIVE) 11/17/20 12:56 Methadone Screen Negative (NEGATIVE) 11/17/20 12:56 Ur Barbiturates Screen Negative (NEGATIVE) 11/17/20 12:56 Ur Phencyclidine Scrn Negative (NEGATIVE) 11/17/20 12:56 Amphetamines Screen Positive (NEGATIVE) H 11/17/20 12:56 Benzodiazepines Screen Negative (NEGATIVE) 11/17/20 12:56 Cocaine Screen Positive (NEGATIVE) H 11/17/20 12:56 Ur THC Screen Negative (NEGATIVE) 11/17/20 12:56 SARS-CoV-2 Rap RNA(RT-PCR) Negative (NEGATIVE) 11/17/20 12:30 Assessment And Plan - Plan Physical Exam: General: Oriented x1, Cachectic, Confused HEENT: Atraumatic, Normocephalic Neck: Supple, 2+ carotid pulse no bruit Respiratory: Clear to auscultation bilaterally, Normal air movement Cardiovascular: No edema, Normal pulses, Regular rate/rhythm Capillary refill: <2 Seconds Gastrointestinal: Other (colostomy bag) Musculoskeletal: Other (Left AKA, right 5th toe amputation) Integumentary: Pressure ulcer (Bilateral stage IV ischial decubitus ulcers. Draining ban blood, status post surgical I and D performed on 11/17 mary wound tissue erythematous), Other (Diffuse maculopapular rash) Neurological: Other (Paraplegic) Urinary: Scott catheter External genitalia: Other (Right groin central line) Rectal: Deferred Other Physical/Emotional Findings: Agitated/anxious Conclusions/Impression: Antibiotics: Current: merum start: 11/19 stop: -- Doxycycline Start: 11/17 Stop: 11/25 DC: Cefepime Start: 11/17 Stop: 11/19 Patient received single dose of vancomycin on 11/17 Assessment/PLAN: Severe urosepsis with bacteremia and UTI Severe sepsis on admission. Blood cultures performed on 11/17 growing gram- negative rods in 4/4 bottles--growing an ESBL producing Klebsiella and Proteus mirabilis. Repeat blood cultures performed on 11/19 growing a coagulase-negative Staph in 1/2 bottles, likely contaminant. Blood cultures taken on 11/20 show NGTD. Urine culture performed on 11/17 growing ESBL producing Klebsiella, cefepime discontinued in meropenem started. Source of bacteremia likely urine. Leukocytosis with left shift WBC down trending, continue to monitor WBC and fever curve. Patient responding to antibiotic therapy. Bilateral stage IV ischial decubitus ulcer The patient underwent surgical I and D on 11/17. Patient's taken back to OR on 11/19 and remaining necrotic tissue was removed, wound VAC has been placed to bilateral wounds. Wound care per surgical team. Right ischial aspect of pelvis exposed, Patient will need to be treated for osteomyelitis with IV antibiotics for total duration of 6 weeks. Patient currently has right groin central line placed, recommend more permanent line placement. Paraplegic with bed bound/wheelchair-bound status, anemia of chronic disease, protein caloric malnutrition, dehydration All aspects which hinder wound healing ability. Recommend placement of air mattress. Recommend repositioning patient in bed every 2 hr during waking hr. Avoid direct pressure over wounds. Patient started on vitamins to promote wound healing including vitamin-C, vitamin-D, and zinc. Vitamin-D level pending. Recommend supplemental Ensure protein drinks. Diffuse maculopapular rash Rash present on admission, not likely due to any medication/antibiotic therapy. Rash likely due to patient being found in did show for an estimated 2 days. Per EMS patient was found to have antibiotics all over his body. Continue treatment with Benadryl. RPR to rule out syphilis pending Acute encephalopathy, Rhabdomyolysis, MADDIE, Polysubstance abuse Medical management per primary team Renal function worsening Dispo: Would prefer to transfer patient to [facility] for antibiotic and wound care treatment however patient has no more acute care days. Patient will likely be sent to [facility] on merum. Patient will need antibiotic duration of 6 weeks with weekly labs including: CBC, CMP, C reactive protein, ESR. Patient now considering hospice. Plan of care discussed with Dr. Hobbs Thank you for consultation Physician Review: Patient Assessed, Agree with Above Assessment and Plan
--- NOTE | 2020-11-26 14:10 | PN ---
Date of Progress Note: 11/26/2020 Subjective: The patient was admitted with acute kidney injury secondary to rhabdo, prerenal, recovered, resolved. The patient had amputation. Has sacral decubitus and UTI. The patient apparently thinking about hospice. Physical Examination: Vital Signs: Blood pressure 137/79, pulse of 66, afebrile. Chest: Clear to auscultation. Heart: S1, S2. Regular. Abdomen: Has sacral decubitus ulcer. Extremity: Left above-knee amputation. Laboratory Data: H and H 8.4/26.9. Sodium 139, potassium 4.3, bicarb 29, BUN 12, creatinine 0.6, calcium 8.3, magnesium 2.1. Current Medications: The patient on include; 1. Aspirin. 2. Meropenem. 3. IV iron. 4. Tylenol. 5. Amiloride 5 mg. 6. Magnesium oxide. 7. Vitamin D. 8. Ascorbic acid. Assessment And Plan: 1. Acute kidney injury secondary to rhabdomyolysis and prerenal, recovered, resolved. 2. Rhabdomyolysis secondary to fall, resolved. 3. Hypocalcemia secondary to vitamin D. Continue supplement. 4. Vitamin D deficiency. Continue supplement. 5. Urinary tract infection, multi organism, Klebsiella and Proteus mirabilis. Continue meropenem. 6. Salt wasting with hypomagnesemia, responded to amiloride. Continue amiloride. Continue oral magnesium. Time spent examining the patient [id number] placing order discussing with the patient reviewing data discussing the case with all of our subspecialty including hospitalist 45 minutes MESSI Voice ID: [id number] Report ID: [id number]
[2020-11-26] MEDS ORDERED: HYDROCODONE/APAP 5/325 MG TAB PO PRN (16:25)
--- NOTE | 2020-11-26 16:29 | P.PN ---
Subjective Date of Service: 11/26/20 Chief Complaint: AMS, dehydration. Subjective: Improving (Reports continued chronic pain, pain at sites of ulcers. Upset that his wound VAC has been disconnected for several hours. Has not made the decision of hospice or not, wants to discuss further with hospice manager. Refused PICC, continues to refuse PICC line. not allowing removal of central line) Review of Systems 10-point ROS is otherwise unremarkable Physical Examination - Vital Signs Temperature: 97.0 F Blood Pressure: 122/78 Pulse: 66 Respirations: 22 Pulse Ox (%): 99 - Physical Exam Other Physical/Emotional Findings: Agitated/anxious Assessment & Plan Physician Review Additional Text: Physical exam GEN: Alert, oriented, NAD HEENT: Normal conjunctiva, sclera anicteric CV: Regular rate and rhythm, no edema Pulm: Nonlabored respiration on room air ABD: Soft, nontender, nondistended Integumentary: mild erythema along r side of body, dry peeling skin stout catheter in place Problem list Acute metabolic encephalopathy secondary to sepsis, resolved Acute renal failure, prerenal secondary to dehydration, resolved Rhabdomyolysis, resolved Bilateral ischial decubitus ulceration Sepsis secondary to decubitus ulcer/osteomyelitis, with bacteremia Anemia chronic disease Polysubstance abuse Paraplegia Continue IV meropenem blood culture 11/17 grew Proteus, Klebsiella ESBL Repeat blood culture 11/20: No growth to date. PICC line for outpatient IV antibiotics ordered. Patient refused Continues to have central line in place since admission, high risk for infectio n, patient aware. Does not want it removed, states he is a hard stick Discussed PICC line, states he wants to continue to talk with hospice before making any further decisions Leukocytosis resolved Transthoracic Echocardiogram: No vegetation. Local wound care. Wound VAC in place. General surgery recommended skin flap in the near future. Erythematous rash likely related to the gram-negative/positive sepsis. Rash significantly improved /ant bites On hydrocortisone cream for the rash. MADDIE resolved. Nephrology input appreciated. Patient not a candidate for LTAC placement per social service. Dispo: SNF for wound care and IV antibiotics, will need 6 weeks total meropenem will need skin flap in near future Patient considering hospice, he states he is tired of going over and over with the same treatment of antibiotics and debridement of his ulcers Time Spent Managing Pts Care (In Minutes): 40
[2020-11-27] MEDS: Meropenem 1 GM/100 ML BAG IV SCH ×3 (01:30→16:31)
[2020-11-27 05:46] LABS: Absolute Lymphocytes (CBC) 1.3 K/uL (0.7-4.9); Basophils % 0.6 % (0-1.3); Hematocrit 26.8 % (39.6-49.0); Lymphocytes % 15.1 % (15.3-44.8); MPV 7.5 fL (7.6-11.3); RBC Red Blood Cell Count 3.63 M/uL (4.33-5.43)
[2020-11-27 05:52] LABS: ALT/SGPT 23 U/L (12-78); AST/SGOT 25 U/L (15-37); Albumin 2.1 g/dL (3.4-5.0); Alkaline Phosphatase 71 U/L (45-117); BUN Blood Urea Nitrogen 17 mg/dL (7-18); Bicarbonate 30 mmol/L (21-32); Bilirubin Total 0.1 mg/dL (0.2-1.0); Glucose Level 101 mg/dL (74-106); Magnesium 1.6 mg/dL (1.8-2.4); Potassium 4.4 mmol/L (3.5-5.1); Protein, Total 7.3 g/dL (6.4-8.2); Sodium Level 138 mmol/L (136-145)
--- NOTE | 2020-11-27 05:56 | P.PN ---
Subjective Date of Service: 11/27/20 Chief Complaint: AMS, dehydration. Subjective: No new changes (Absent, angry, frustrated this morning. Upset days of Stout catheter no longer suprapubic. refusing IV antibiotics, refuses PICC line, states she wants to discuss further options with hospice nurse. reports norco yesterday was not enough, that he takes morphine 30mg and norco 10s in the past.) Review of Systems 10-point ROS is otherwise unremarkable Physical Examination - Vital Signs Temperature: 97.8 F Blood Pressure: 112/64 Pulse: 94 Respirations: 18 Pulse Ox (%): 94 - Physical Exam Other Physical/Emotional Findings: Agitated/anxious Assessment & Plan Physician Review Additional Text: Physical exam GEN: Alert, oriented, NAD HEENT: Normal conjunctiva, sclera anicteric CV: Regular rate and rhythm, no edema Pulm: Nonlabored respiration on room air ABD: Soft, nontender, nondistended, +colostomy with stool in place Integumentary: improving rash along r side of body, dry peeling skin stout catheter in place Problem list Acute metabolic encephalopathy secondary to sepsis, resolved Acute renal failure, prerenal secondary to dehydration, resolved Rhabdomyolysis, resolved Bilateral ischial decubitus ulceration Sepsis secondary to decubitus ulcer/osteomyelitis, with bacteremia Anemia chronic disease Polysubstance abuse Paraplegia h/o colostomy h/o suprapubic catheter, now closed Continue IV meropenem - pt refusing blood culture 11/17 grew Proteus, Klebsiella ESBL. Repeat blood culture 11/20: No growth to date. PICC line for outpatient IV antibiotics ordered. Patient refuses still Continues to have central line in place since admission, high risk for infection, patient aware. did not want it removed, explained risk, he is amenable to removal today, but may refuse IV access Discussed PICC line again, states he wants to continue to talk with hospice before making any further decisions Leukocytosis resolved Transthoracic Echocardiogram: No vegetation. Local wound care. Wound VAC ordered - pt refusing, doing wet-to-dry now General surgery recommended skin flap in the near future. rash improved, nearly resolved. On hydrocortisone cream for the rash. MADDIE resolved. Nephrology input appreciated. Patient not a candidate for LTAC placement per social service. Dispo: SNF for wound care and IV antibiotics, will need 6 weeks total meropenem will need skin flap in near future Patient considering hospice, he states he is tired of going over and over with the same treatment of antibiotics and debridement of his ulcers today has been refusing antibiotics Time Spent Managing Pts Care (In Minutes): 35
--- NOTE | 2020-11-27 06:21 | P.PN ---
Subjective Date of Service: 11/27/20 Chief Complaint: AMS, dehydration. Subjective: No new changes Physical Examination - Vital Signs Temperature: 97.8 F Blood Pressure: 112/64 Pulse: 94 Respirations: 18 Pulse Ox (%): 94 - Physical Exam General: In no apparent distress HEENT: Normocephalic Neck: Supple Respiratory: Other (Symmetric chest expansion) Cardiovascular: No rubs, No murmurs Gastrointestinal: Soft and benign, Non-distended Musculoskeletal: Other (+BLE muscle atrophy) Integumentary: Other (+sacral decubitus) Neurological: Normal tone Urinary: Other (No bladder distention) External genitalia: Deferred Rectal: Deferred Other Physical/Emotional Findings: Agitated/anxious Assessment And Plan - Plan 1. Acute kidney injury secondary to prerenal state. Improved. [place] po fluid intake. Continue stout catheter. 2. Sepsis. Has UTI w/ urine culture growing ESBL Klebsiella. Has stage IV sacral decubitus ulcer. Wound cx growing Klebsiella and Proteus. Antibiotics per ID service. He is refusing Meropenem. 3. Anemia. Monitor H&H. 4. Hypomagnesemia. Replete prn. 5. Acute metabolic encephalopathy. Resolved. Monitor 6. Alkalosis. [place] po fluid intake. 7. Paraplegia. PT/OT. 8. Dispo. Dc plan to SNF ongoing. Physician Review: Patient Assessed, Agree with Above Assessment and Plan
[2020-11-27] MEDS: ASCORBIC ACID 500 MG TABLET PO SCH (09:00)
[2020-11-27] MEDS: ENSURE HIGH PROTEIN 237 ML CAN PO SCH ×2 (09:00→21:00)
[2020-11-27] MEDS: ASPIRIN 81 MG CHEWABLE TABLET PO SCH (09:00)
[2020-11-27] MEDS ORDERED: MAGNESIUM SULFATE 1 gm IVPB 1 GM/100 ML BAG IV ONE (09:00)
[2020-11-27] MEDS: MAGNESIUM OXIDE 400 MG TAB PO SCH ×2 (09:00→21:00)
[2020-11-27] MEDS: AMILORIDE HCL 5 MG TABLET PO SCH (09:00)
[2020-11-27] MEDS: JUVEN PACKET PO SCH ×2 (09:00→20:45)
[2020-11-27] MEDS: ZINC SULFATE 220 MG CAP PO SCH (09:00)
--- NOTE | 2020-11-27 10:41 | P.PN ---
Subjective Date of Service: 11/27/20 Chief Complaint: AMS, dehydration. Patient seen examined at bedside, no acute events over past 24 hours. Physical Examination - Vital Signs Temperature: 97.5 F Blood Pressure: 144/85 Pulse: 75 Respirations: 23 Pulse Ox (%): 93 - Physical Exam Other Physical/Emotional Findings: Agitated/anxious Assessment And Plan - Plan Physical Exam: General: Oriented x1, Cachectic, Confused HEENT: Atraumatic, Normocephalic Neck: Supple, 2+ carotid pulse no bruit Respiratory: Clear to auscultation bilaterally, Normal air movement Cardiovascular: No edema, Normal pulses, Regular rate/rhythm Capillary refill: <2 Seconds Gastrointestinal: Other (colostomy bag) Musculoskeletal: Other (Left AKA, right 5th toe amputation) Integumentary: Pressure ulcer (Bilateral stage IV ischial decubitus ulcers. Draining ban blood, status post surgical I and D performed on 11/17 mary wound tissue erythematous), Other (Diffuse maculopapular rash) Neurological: Other (Paraplegic) Urinary: Stout catheter External genitalia: Other (Right groin central line) Rectal: Deferred Other Physical/Emotional Findings: Agitated/anxious Conclusions/Impression: Antibiotics: Current: merum start: 11/19 stop: -- Doxycycline Start: 11/17 Stop: 11/25 DC: Cefepime Start: 11/17 Stop: 11/19 Patient received single dose of vancomycin on 11/17 Assessment/PLAN: Severe urosepsis with bacteremia and UTI Severe sepsis on admission. Blood cultures performed on 11/17 growing gram- negative rods in 4/4 bottles--growing an ESBL producing Klebsiella and Proteus mirabilis. Repeat blood cultures performed on 11/19 growing a coagulase-negative Staph in 1/2 bottles, likely contaminant. Blood cultures taken on 11/20 show NGTD. Urine culture performed on 11/17 growing ESBL producing Klebsiella, cefepime discontinued in meropenem started. Source of bacteremia likely urine. Leukocytosis with left shift WBC down trending, continue to monitor WBC and fever curve. Patient responding to antibiotic therapy. Bilateral stage IV ischial decubitus ulcer The patient underwent surgical I and D on 11/17. Patient's taken back to OR on 11/19 and remaining necrotic tissue was removed, wound VAC has been placed to bilateral wounds. Wound care per surgical team. Right ischial aspect of pelvis exposed, Patient will need to be treated for osteomyelitis with IV antibiotics for total duration of 6 weeks. Patient currently has right groin central line placed, recommend more permanent line placement. Paraplegic with bed bound/wheelchair-bound status, anemia of chronic disease, protein caloric malnutrition, dehydration All aspects which hinder wound healing ability. Recommend placement of air mattress. Recommend repositioning patient in bed every 2 hr during waking hr. Avoid direct pressure over wounds. Patient started on vitamins to promote wound healing including vitamin-C, vitamin-D, and zinc. Vitamin-D level pending. Recommend supplemental Ensure protein drinks. Diffuse maculopapular rash Rash present on admission, not likely due to any medication/antibiotic therapy. Rash likely due to patient being found in did show for an estimated 2 days. Per EMS patient was found to have antibiotics all over his body. Continue treatment with Benadryl. RPR to rule out syphilis pending Acute encephalopathy, Rhabdomyolysis, MADDIE, Polysubstance abuse Medical management per primary team Renal function worsening Dispo: Would prefer to transfer patient to [facility] for antibiotic and wound care treatment however patient has no more acute care days. Patient will likely be sent to [facility] on merum. Patient will need antibiotic duration of 6 weeks with weekly labs including: CBC, CMP, C reactive protein, ESR. Patient now considering hospice. Plan of care discussed with Dr. Hobbs Thank you for consultation Physician Review: Patient Assessed, Agree with Above Assessment and Plan Physician Review Additional Text: Physical exam GEN: Alert, oriented, NAD HEENT: Normal conjunctiva, sclera anicteric CV: Regular rate and rhythm, no edema Pulm: Nonlabored respiration on room air ABD: Soft, nontender, nondistended Integumentary: mild erythema along r side of body, dry peeling skin stout catheter in place Problem list Acute metabolic encephalopathy secondary to sepsis, resolved Acute renal failure, prerenal secondary to dehydration, resolved Rhabdomyolysis, resolved Bilateral ischial decubitus ulceration Sepsis secondary to decubitus ulcer/osteomyelitis, with bacteremia Anemia chronic disease Polysubstance abuse Paraplegia Continue IV meropenem blood culture 11/17 grew Proteus, Klebsiella ESBL Repeat blood culture 11/20: No growth to date. PICC line for outpatient IV antibiotics ordered. Patient refused Continues to have central line in place since admission, high risk for infection, patient aware. Does not want it removed, states he is a hard stick Discussed PICC line, states he wants to continue to talk with hospice before making any further decisions Leukocytosis resolved Transthoracic Echocardiogram: No vegetation. Local wound care. Wound VAC in place. General surgery recommended skin flap in the near future. Erythematous rash likely related to the gram-negative/positive sepsis. Rash significantly improved /ant bites On hydrocortisone cream for the rash. MADDIE resolved. Nephrology input appreciated. Patient not a candidate for LTAC placement per social service. Dispo: SNF for wound care and IV antibiotics, will need 6 weeks total meropenem will need skin flap in near future Patient considering hospice, he states he is tired of going over and over with the same treatment of antibiotics and debridement of his ulcers
[2020-11-27] MEDS ORDERED: MORPHINE 4 MG/ML SYR IV ONE (15:00)
--- NOTE | 2020-11-27 15:07 | P.PN ---
Date of Service: 11/27/20 S: Patient states he is still having a lot of muscle spasms and discomfort. The wound VAC was causing him distress, because it kept inflating and deflating. He has been changed over to wet-to-dry dressings with Dakin's solution. He says his pain is not under control at the moment. O: Dressing taken down, looks good. On wet to dry dressings with Dakin's solution. A: Wounds are much improved since his admission. They are currently clean at the moment which is a small amount of biofilm on the area PE: I have discussed at length with the patient his ongoing treatment. He has osteo in that ischium on the left side. He requires IV antibiotics for at least 6 weeks. He will allow us to remove the femoral line, and place a PICC or midline for IV access. He will also shower at some point today. He has been missing his wheelchair, and is now been found at the hotel he was staying at. We will try and see if he can be placed into a residential for ongoing wound care.
[2020-11-27] MEDS: HYDROCODONE/APAP 10/325 TAB PO PRN ×2 (16:31→20:40)
[2020-11-27] MEDS: SODIUM HYPOCHLORITE 0.25% 473 ML TOP SCH ×2 (16:31→20:54)
[2020-11-27] MEDS: HYDROCORTISONE 1 % CREAM 30GM TOP PRN (16:32)
[2020-11-28 00:20] LABS: Vitamin D 1,25-Dihydroxy Total 45 pg/mL (18-72); Vitamin D,1,25-OH2, D2 <8 pg/mL
[2020-11-28] MEDS: Meropenem 1 GM/100 ML BAG IV SCH ×3 (00:59→16:26)
[2020-11-28] MEDS: HYDROCODONE/APAP 10/325 TAB PO PRN ×4 (01:02→16:26)
--- NOTE | 2020-11-28 06:05 | P.PN ---
Subjective Date of Service: 11/28/20 Chief Complaint: AMS, dehydration. Subjective: No new changes Physical Examination - Vital Signs Temperature: 97.8 F Blood Pressure: 112/64 Pulse: 100 Respirations: 18 Pulse Ox (%): 94 - Physical Exam General: In no apparent distress HEENT: Normocephalic Neck: Supple, JVD not distended Respiratory: Other (symmetric chest expansion) Cardiovascular: No rubs, No murmurs Gastrointestinal: Soft and benign Musculoskeletal: Other (bilateral lower extremity muscle atrophy) Integumentary: Other (sacral decubitus wound) Neurological: Normal speech Urinary: Other (no bladder distention) External genitalia: Deferred Rectal: Deferred Other Physical/Emotional Findings: Agitated/anxious Assessment And Plan - Plan 1. Acute kidney injury secondary to prerenal state. Improved. [place] po fluid intake. Continue stout catheter. 2. Sepsis. Has UTI w/ urine culture growing ESBL Klebsiella. Has stage IV sacral decubitus ulcer. Wound cx growing Klebsiella and Proteus. Antibiotics per ID service. He now agrees to continue Meropenem. Needs PICC. Needs wound vac. 3. Anemia. Monitor H&H. 4. Hypomagnesemia. Replete prn. 5. Acute metabolic encephalopathy. Resolved. Monitor 6. Alkalosis. [place] po fluid intake. 7. Paraplegia. PT/OT. 8. Dispo. Dc plan to SNF ongoing. Physician Review: Patient Assessed, Agree with Above Assessment and Plan
[2020-11-28] MEDS: SODIUM HYPOCHLORITE 0.25% 473 ML TOP SCH ×2 (06:45→21:00)
--- NOTE | 2020-11-28 06:48 | P.PN ---
Subjective Date of Service: 11/28/20 Chief Complaint: AMS, dehydration. Subjective: Improving (feeling better today, more calm, agreeable to PICC line and SNF placement. [place] helping with pain) Review of Systems 10-point ROS is otherwise unremarkable Physical Examination - Vital Signs Temperature: 97.8 F Blood Pressure: 112/64 Pulse: 100 Respirations: 18 Pulse Ox (%): 94 - Physical Exam Other Physical/Emotional Findings: Agitated/anxious Assessment & Plan Physician Review Additional Text: Physical exam GEN: Alert, oriented, NAD HEENT: Normal conjunctiva, sclera anicteric CV: Regular rate and rhythm, no edema Pulm: Nonlabored respiration on room air ABD: Soft, nontender, nondistended, +colostomy with stool in place Integumentary: b/l ischial pressure ulcers with dressing in place stout catheter in place Problem list Acute metabolic encephalopathy secondary to sepsis, resolved Acute renal failure, prerenal secondary to dehydration, resolved Rhabdomyolysis, resolved Bilateral ischial decubitus ulceration Sepsis secondary to decubitus ulcer/osteomyelitis, with bacteremia Anemia chronic disease Polysubstance abuse Paraplegia h/o colostomy h/o suprapubic catheter, now closed Continue IV meropenem blood culture 11/17 grew Proteus, Klebsiella ESBL. Repeat blood culture 11/20: No growth to date. PICC line for outpatient IV antibiotics ordered. Patient refused initially, now agreeable continues with femoral line, PICC should be placed today, will pull femoral line afterwards Leukocytosis resolved Transthoracic Echocardiogram: No vegetation. Local wound care with wet to dry dressing General surgery recommended skin flap in the near future. continue [place] 10s rash improved, nearly resolved. On hydrocortisone cream for the rash. MADDIE resolved. Nephrology input appreciated. Patient not a candidate for LTAC placement per social service - no further acute days Dispo: SNF for wound care and IV antibiotics, will need 6 weeks total meropenem will need skin flap in near future Time Spent Managing Pts Care (In Minutes): 40
[2020-11-28 06:50] LABS: UR PROTEIN 24.3 mg/dL (<11.9); Urine Protein/Creatinine Ratio 0.25 ratio (<0.15)
[2020-11-28] MEDS: AMILORIDE HCL 5 MG TABLET PO SCH ×2 (09:00→10:16)
[2020-11-28] MEDS: MAGNESIUM OXIDE 400 MG TAB PO SCH ×2 (09:00→21:00)
[2020-11-28] MEDS: ASPIRIN 81 MG CHEWABLE TABLET PO SCH (10:10)
[2020-11-28] MEDS: ASCORBIC ACID 500 MG TABLET PO SCH (10:11)
[2020-11-28] MEDS: ZINC SULFATE 220 MG CAP PO SCH (10:16)
[2020-11-28] MEDS: JUVEN PACKET PO SCH ×2 (10:17→21:00)
[2020-11-28] MEDS: ENSURE HIGH PROTEIN 237 ML CAN PO SCH ×2 (10:17→21:00)
--- NOTE | 2020-11-28 11:18 | P.PN ---
Subjective Date of Service: 11/28/20 Chief Complaint: AMS, dehydration. Patient seen examined at bedside, refusing antibiotics and wound VAC. Review of Systems 10-point ROS is otherwise unremarkable Physical Examination - Vital Signs Temperature: 98.1 F Blood Pressure: 117/61 Pulse: 106 Respirations: 18 Pulse Ox (%): 100 - Physical Exam Other Physical/Emotional Findings: Agitated/anxious - Studies Laboratory Last Values WBC 22.40 K/uL (4.3-10.9) H* 11/17/20 12:05 RBC 4.82 M/uL (4.33-5.43) 11/17/20 12:05 Hgb 11.3 g/dL (13.6-17.9) L 11/17/20 12:05 Hct 35.9 % (39.6-49.0) L 11/17/20 12:05 MCV 74.4 fL (80-100) L 11/17/20 12:05 MCH 23.4 pg (27.0-35.0) L 11/17/20 12:05 MCHC 31.5 g/dL (32.0-36.0) L 11/17/20 12:05 RDW 18.4 % (12.1-15.2) H 11/17/20 12:05 Plt Count 709 K/uL (152-406) H 11/17/20 12:05 MPV 8.3 fL (7.6-11.3) 11/17/20 12:05 Neutrophils % 87.7 % (41.7-73.7) H 11/17/20 12:05 Lymphocytes % 4.2 % (15.3-44.8) L 11/17/20 12:05 Monocytes % 7.8 % (3.3-12.3) 11/17/20 12:05 Eosinophils % 0.0 % (0-4.4) 11/17/20 12:05 Basophils % 0.3 % (0-1.3) 11/17/20 12:05 Absolute Neutrophils 19.7 K/uL (1.8-8.0) H 11/17/20 12:05 Segmented Neutrophils 87 % (40-80) H 11/17/20 12:05 Absolute Lymphocytes 0.9 K/uL (0.7-4.9) 11/17/20 12:05 Lymphocytes 7 % (15-42) L 11/17/20 12:05 Monocytes 6 % (0-10) 11/17/20 12:05 Absolute Monocytes 1.8 K/uL (0.1-1.3) H 11/17/20 12:05 Absolute Eosinophils 0.0 K/uL (0-0.5) 11/17/20 12:05 Absolute Basophils 0.1 K/uL (0-0.5) 11/17/20 12:05 Platelet Estimate Incr 11/17/20 12:05 Anisocytosis Slight 11/17/20 12:05 Morphology Comment Noted (NOT SEEN) 11/17/20 12:05 PT 18.2 SECONDS (9.5-12.5) H 11/17/20 12:05 INR 1.58 11/17/20 12:05 APTT 29.5 SECONDS (24.3-36.9) 11/17/20 12:05 Sodium 130 mmol/L (136-145) L 11/17/20 12:05 Potassium 4.7 mmol/L (3.5-5.1) 11/17/20 12:05 Chloride 95 mmol/L (98-107) L 11/17/20 12:05 Carbon Dioxide 16 mmol/L (21-32) L 11/17/20 12:05 BUN 52 mg/dL (7-18) H 11/17/20 12:05 Creatinine 5.29 mg/dL (0.55-1.3) H* 11/17/20 12:05 Estimated GFR 12 mL/min (=/>90) L 11/17/20 12:05 Glucose 141 mg/dL (74-106) H 11/17/20 12:05 Lactic Acid 6.4 11/17/20 12:05 Calcium 8.2 mg/dL (8.5-10.1) L 11/17/20 12:05 Total Bilirubin 0.6 mg/dL (0.2-1.0) 11/17/20 12:05 Direct Bilirubin 0.2 mg/dL (0-0.2) 11/17/20 12:05 AST 50 U/L (15-37) H 11/17/20 12:05 ALT 18 U/L (12-78) 11/17/20 12:05 Alkaline Phosphatase 100 U/L (45-117) 11/17/20 12:05 Creatine Kinase 1771 U/L (39-308) H* 11/17/20 12:05 Rapid Troponin I < 0.02 ng/mL (0.0-0.045) 11/17/20 12:05 Serum Total Protein 8.6 g/dL (6.4-8.2) H 11/17/20 12:05 Albumin 2.9 g/dL (3.4-5.0) L 11/17/20 12:05 Globulin 5.7 g/dL (2.3-3.5) H 11/17/20 12:05 Albumin/Globulin Ratio 0.5 (1.1-1.8) L 11/17/20 12:05 Procalcitonin 376.15 ng/mL (<0.050) H 11/17/20 12:05 Urine Color Cancelled 11/17/20 15:34 Urine Appearance Cancelled 11/17/20 15:34 Urine pH Cancelled 11/17/20 15:34 Ur Specific [place] Cancelled 11/17/20 15:34 Glucose (UA)(Auto) Cancelled 11/17/20 15:34 Urine Ketones Cancelled 11/17/20 15:34 Urine Blood Cancelled 11/17/20 15:34 Urine Nitrite Cancelled 11/17/20 15:34 Urine Bilirubin Cancelled 11/17/20 15:34 Urine Urobilinogen Cancelled 11/17/20 15:34 Ur Leukocyte Esterase Cancelled 11/17/20 15:34 Urine RBC 5-10 /HPF (NONE SEEN) H 11/17/20 12:56 Urine WBC 10-20 /HPF (<5) H 11/17/20 12:56 Ur Squamous Epith Cells 5-10 /HPF (NONE SEEN) H 11/17/20 12:56 Urine Bacteria <20 /HPF (NONE SEEN) 11/17/20 12:56 Urine Mucus 2+ /HPF (NONE SEEN) 11/17/20 12:56 Urine Culture Reflexed Reflexed 11/17/20 12:56 Urine Total Protein Cancelled 11/17/20 15:34 Opiates Screen Negative (NEGATIVE) 11/17/20 12:56 Methadone Screen Negative (NEGATIVE) 11/17/20 12:56 Ur Barbiturates Screen Negative (NEGATIVE) 11/17/20 12:56 Ur Phencyclidine Scrn Negative (NEGATIVE) 11/17/20 12:56 Amphetamines Screen Positive (NEGATIVE) H 11/17/20 12:56 Benzodiazepines Screen Negative (NEGATIVE) 11/17/20 12:56 Cocaine Screen Positive (NEGATIVE) H 11/17/20 12:56 Ur THC Screen Negative (NEGATIVE) 11/17/20 12:56 SARS-CoV-2 Rap RNA(RT-PCR) Negative (NEGATIVE) 11/17/20 12:30 Assessment And Plan - Plan Physical Exam: General: Oriented x1, Cachectic, Confused HEENT: Atraumatic, Normocephalic Neck: Supple, 2+ carotid pulse no bruit Respiratory: Clear to auscultation bilaterally, Normal air movement Cardiovascular: No edema, Normal pulses, Regular rate/rhythm Capillary refill: <2 Seconds Gastrointestinal: Other (colostomy bag) Musculoskeletal: Other (Left AKA, right 5th toe amputation) Integumentary: Pressure ulcer (Bilateral stage IV ischial decubitus ulcers. Draining ban blood, status post surgical I and D performed on 11/17 mary wound tissue erythematous), Other (Diffuse maculopapular rash) Neurological: Other (Paraplegic) Urinary: [place] catheter External genitalia: Other (Right groin central line) Rectal: Deferred Other Physical/Emotional Findings: Agitated/anxious Conclusions/Impression: Antibiotics: Current: merum start: 11/19 stop: -- Doxycycline Start: 11/17 Stop: 11/25 DC: Cefepime Start: 11/17 Stop: 11/19 Patient received single dose of vancomycin on 11/17 Assessment/PLAN: Severe urosepsis with bacteremia and UTI Severe sepsis on admission. Blood cultures performed on 11/17 growing gram- negative rods in 4/4 bottles--growing an ESBL producing Klebsiella and Proteus mirabilis. Repeat blood cultures performed on 11/19 growing a coagulase-negative Staph in 1/2 bottles, likely contaminant. Blood cultures taken on 11/20 show NGTD. Urine culture performed on 11/17 growing ESBL producing Klebsiella, cefepime discontinued in meropenem started. Source of bacteremia likely urine. Patient is currently refusing antibiotics. Patient also has central line that was place on admission--refusing removal. Discussed with the patient the need for removal and risk of infection, still denied removal. Also refusing PICC line placement. Leukocytosis with left shift resolved Bilateral stage IV ischial decubitus ulcer The patient underwent surgical I& D on 11/17. Patient's taken back to OR on 11/19 and remaining necrotic tissue was removed, wound VAC has been placed to bilateral wounds. WOund VAC taken off on 11/26--patient now refusing. Currnt wound ar is wet to dry. Right ischial aspect of pelvis exposed, Patient will need to be treated for osteomyelitis with IV antibiotics for total duration of 6 weeks. Patient currently has right groin central line placed, recommend more permanent line placement. Paraplegic with bed bound/wheelchair-bound status, anemia of chronic disease, protein caloric malnutrition, dehydration All aspects which hinder wound healing ability. Recommend placement of air mattress. Recommend repositioning patient in bed every 2 hr during waking hr. Avoid direct pressure over wounds. Patient started on vitamins to promote wound healing including vitamin-C, vitamin-D, and zinc. Vitamin-D level pending. Recommend supplemental Ensure protein drinks. Diffuse maculopapular rash Rash present on admission, not likely due to any medication/antibiotic therapy. Rash likely due to patient being found in did show for an estimated 2 days. Per EMS patient was found to have antibiotics all over his body. Continue treatment with Benadryl. RPR to rule out syphilis pending Acute encephalopathy, Rhabdomyolysis, MADDIE, Polysubstance abuse Medical management per primary team Renal function worsening Dispo: Would prefer to transfer patient to [facility] for antibiotic and wound care treatment however patient has no more acute care days. Patient will likely be sent to the [facility] on merum. Patient will need antibiotic duration of 6 weeks with weekly labs including: CBC, CMP, C reactive protein, ESR. Patient now considering hospice. Plan of care discussed with Dr. Hobbs Thank you for consultation Physician Review: Patient Assessed, Agree with Above Assessment and Plan
[2020-11-28] MEDS: SOD FERRIC GLUC COMPLX/SUCROSE 250 MG in NA CHLORIDE 0.9% 250 ML IV SCH (11:35)
[2020-11-29] MEDS: Meropenem 1 GM/100 ML BAG IV SCH ×3 (01:36→17:57)
--- NOTE | 2020-11-29 05:54 | P.PN ---
Subjective Date of Service: 11/29/20 Chief Complaint: AMS, dehydration. Subjective: No new changes (No PICC nurse available yesterday/overnight to place the PICC line. Patient reports feeling the same, no new complaints or issues) Review of Systems 10-point ROS is otherwise unremarkable Physical Examination - Vital Signs Temperature: 97.8 F Blood Pressure: 112/64 Pulse: 100 Respirations: 18 Pulse Ox (%): 94 - Physical Exam Other Physical/Emotional Findings: Agitated/anxious Assessment & Plan Physician Review Additional Text: Physical exam GEN: Alert, oriented, NAD HEENT: Normal conjunctiva, sclera anicteric CV: Regular rate and rhythm, no edema Pulm: Nonlabored respiration on room air ABD: Soft, nontender, nondistended, +colostomy with stool in place Integumentary: b/l ischial pressure ulcers with dressing in place stout catheter in place with small amount of sediment in tubing Problem list Acute metabolic encephalopathy secondary to sepsis, resolved Acute renal failure, prerenal secondary to dehydration, resolved Rhabdomyolysis, resolved Bilateral ischial decubitus ulceration Sepsis secondary to decubitus ulcer/osteomyelitis, with bacteremia Anemia chronic disease Polysubstance abuse Paraplegia h/o colostomy h/o suprapubic catheter, now closed Continue IV meropenem blood culture 11/17 grew Proteus, Klebsiella ESBL. Repeat blood culture 11/20: No growth to date. PICC line for outpatient IV antibiotics ordered. Patient refused initially, now agreeable continues with femoral line, will pull femoral line today, obtain IV access Leukocytosis resolved Transthoracic Echocardiogram: No vegetation. Local wound care with wet to dry dressing General surgery recommended skin flap in the near future. continue [place] 10s rash improved, nearly resolved. On hydrocortisone cream for the rash. MADDIE resolved. Nephrology input appreciated. Patient not a candidate for LTAC placement per social service - no further acute days Dispo: SNF for wound care and IV antibiotics, will need 6 weeks total meropenem will need skin flap in near future Time Spent Managing Pts Care (In Minutes): 40
[2020-11-29] MEDS: HYDROCODONE/APAP 10/325 TAB PO PRN ×4 (06:18→22:08)
[2020-11-29] MEDS: ZINC SULFATE 220 MG CAP PO SCH (09:34)
[2020-11-29] MEDS: ASCORBIC ACID 500 MG TABLET PO SCH (09:34)
[2020-11-29] MEDS: AMILORIDE HCL 5 MG TABLET PO SCH (09:34)
[2020-11-29] MEDS: ASPIRIN 81 MG CHEWABLE TABLET PO SCH (09:34)
[2020-11-29] MEDS: JUVEN PACKET PO SCH ×2 (09:35→21:09)
[2020-11-29] MEDS: ENSURE HIGH PROTEIN 237 ML CAN PO SCH ×2 (09:35→21:09)
[2020-11-29] MEDS: SODIUM HYPOCHLORITE 0.25% 473 ML TOP SCH ×2 (09:36→21:00)
[2020-11-29] MEDS: MAGNESIUM OXIDE 400 MG TAB PO SCH ×2 (09:36→21:00)
[2020-11-29 09:50] LABS: Absolute Lymphocytes (CBC) 1.4 K/uL (0.7-4.9); Basophils % 0.7 % (0-1.3); Lymphocytes % 14.3 % (15.3-44.8); MPV 7.4 fL (7.6-11.3)
[2020-11-29 09:56] LABS: Albumin 2.2 g/dL (3.4-5.0); BUN Blood Urea Nitrogen 13 mg/dL (7-18); Bicarbonate 29 mmol/L (21-32); Glucose Level 120 mg/dL (74-106); Magnesium 1.5 mg/dL (1.8-2.4); Phosphorus 2.8 mg/dL (2.5-4.9); Potassium 3.9 mmol/L (3.5-5.1); Sodium Level 141 mmol/L (136-145)
--- NOTE | 2020-11-29 16:43 | PN ---
Date of Progress Note: 11/29/2020 Chief Complaint: Acute kidney injury, altered mental status, dehydration. The patient has multiple medical problems. He was found to have severe sepsis with urinary tract infection and urine culture was growing ESBL Klebsiella. He has stage IV sacral decubitus ulcer and wound was growing Klebsiella and Proteus. The patient is on antibiotics. He will continue meropenem. The patient is awaiting for PICC line. Review of Systems: Denies fever, chills. Physical Examination: Lungs: Clear to auscultation bilaterally. Heart: S1 and S2. Abdomen: Soft, benign. Extremities: No edema. Impression And Plan: 1. Acute kidney injury secondary to prerenal state. Renal hypoperfusion. The patient can continue p.o. intake. The patient has a Scott catheter. Monitor urine output and fluid balance. 2. Sepsis and urinary tract infection. Continue meropenem. 3. Anemia. There is no evidence of gastrointestinal bleeding. Monitor hemoglobin and hematocrit. 4. Hypomagnesemia. Continue to replace. 5. Acute metabolic encephalopathy, resolved. 6. Alkalosis secondary to volume depletion. Continue p.o. intake with hydration. 7. Paraplegia. The patient is undergoing PT, OT. EB/MODL Voice ID: [id number] Report ID: [id number]
[2020-11-30] MEDS: Meropenem 1 GM/100 ML BAG IV SCH ×4 (00:59→17:00)
[2020-11-30 02:00] LABS: Albumin, (SPE) 2.4 g/dL (3.8-4.8); Alpha-1-Globulins 0.7 g/dL (0.2-0.3); Alpha-2-Globulins 0.8 g/dL (0.5-0.9); Gamma Globulins 0.8 g/dL (0.8-1.7); INTERPRETATION REPORT
[2020-11-30] MEDS: HYDROCODONE/APAP 10/325 TAB PO PRN ×4 (06:24→22:49)
--- NOTE | 2020-11-30 06:26 | P.PN ---
Subjective Date of Service: 11/30/20 Chief Complaint: AMS, dehydration. Subjective: No new changes (Feeling okay, peripheral IV obtained yesterday, femoral central line removed yesterday. No new complaints. Patient asking to exchange his Stout catheter today.) Review of Systems 10-point ROS is otherwise unremarkable Physical Examination - Vital Signs Temperature: 98.7 F Blood Pressure: 118/71 Pulse: 100 Respirations: 19 Pulse Ox (%): 95 - Physical Exam Other Physical/Emotional Findings: Agitated/anxious Assessment & Plan Physician Review Additional Text: Physical exam GEN: Alert, oriented, NAD HEENT: Normal conjunctiva, sclera anicteric CV: Regular rate and rhythm, no edema Pulm: Nonlabored respiration on room air ABD: Soft, nontender, nondistended, +colostomy with stool in place Integumentary: Large b/l ischial pressure ulcers. R with clean base healthy tissue, mild serosanguineous oozing stout catheter in place with small amount of sediment in tubing Problem list Acute metabolic encephalopathy secondary to sepsis, resolved Acute renal failure, prerenal secondary to dehydration, resolved Rhabdomyolysis, resolved Bilateral ischial decubitus ulceration Sepsis secondary to decubitus ulcer/osteomyelitis, with bacteremia Anemia chronic disease Polysubstance abuse Paraplegia h/o colostomy h/o suprapubic catheter, now closed Continue IV meropenem blood culture 11/17 grew Proteus, Klebsiella ESBL. Repeat blood culture 11/20: No growth to date. PICC line for outpatient IV antibiotics ordered. Patient refused initially, now agreeable Femoral line removed 11/29 Leukocytosis resolved Transthoracic Echocardiogram: No vegetation. Local wound care with wet to dry dressing General surgery recommended skin flap in the near future. continue [place] 10s rash improved, nearly resolved. On hydrocortisone cream for the rash. MADDIE resolved. Nephrology input appreciated. Patient not a candidate for LTAC placement per social service - no further acute days Dispo: SNF for wound care and IV antibiotics, will need 6 weeks total meropenem will need skin flap in near future Time Spent Managing Pts Care (In Minutes): 45
[2020-11-30] MEDS: MAGNESIUM OXIDE 400 MG TAB PO SCH (09:00)
[2020-11-30] MEDS: SODIUM HYPOCHLORITE 0.25% 473 ML TOP SCH ×2 (09:00→09:11)
[2020-11-30] MEDS: ZINC SULFATE 220 MG CAP PO SCH (09:08)
[2020-11-30] MEDS: ASCORBIC ACID 500 MG TABLET PO SCH (09:08)
[2020-11-30] MEDS: AMILORIDE HCL 5 MG TABLET PO SCH (09:08)
[2020-11-30] MEDS: JUVEN PACKET PO SCH ×2 (09:09→21:00)
[2020-11-30] MEDS: ASPIRIN 81 MG CHEWABLE TABLET PO SCH (09:09)
[2020-11-30] MEDS: ENSURE HIGH PROTEIN 237 ML CAN PO SCH ×2 (09:09→21:00)
[2020-11-30] MEDS: HYDROCORTISONE 1 % CREAM 30GM TOP PRN (11:00)
--- NOTE | 2020-11-30 23:28 | PN ---
Date of Progress Note: 11/30/2020 Chief Complaint: Acute kidney injury, altered mental status, dehydration. The patient has multiple medical problems. He was found to have severe sepsis with urinary tract inf ection. Urine culture was growing ESBL Klebsiella. He has stage IV sacral decubitus ulcer. He is c urrently on meropenem. Review of Systems: Denies fever or chills. Physical Examination: Lungs: Clear to auscultation bilaterally. Heart: S1 and S2. Abdomen: Soft and benign. Extremities: No edema. Impression And Plan: 1.Acute kidney injury secondary to prerenal state. The patient will continue p.o. hydration. He co mpleted IV fluids. The patient has a Scott catheter and monitor fluid balance. Renal function has s tabilized. Electrolytes will be evaluated today and lab work is pending. 2.Sepsis and urinary tract infection. Continue meropenem. 3.Anemia. There is no evidence of gastrointestinal bleeding. Monitor hemoglobin and hematocrit. C heck INR and adjust iron replacement. 4.Acute metabolic encephalopathy, resolved. 5.Hypomagnesemia. Monitor magnesium and continue magnesium replacement. 6.Alkalosis. Continue IV fluids. Monitor electrolytes. EB/MODL Voice ID: [id number] Report ID: [id number]
[2020-12-01] MEDS: Meropenem 1 GM/100 ML BAG IV SCH ×3 (03:43→16:39)
[2020-12-01] MEDS: HYDROCODONE/APAP 10/325 TAB PO PRN ×4 (03:56→22:24)
--- NOTE | 2020-12-01 06:02 | P.PN ---
Subjective Date of Service: 12/01/20 Chief Complaint: AMS, dehydration. Subjective: No new changes (Stout catheter exchanged yesterday by the patient, refused nursing to do it, refused UA (protocl)) Review of Systems 10-point ROS is otherwise unremarkable Physical Examination - Vital Signs Temperature: 98.6 F Blood Pressure: 117/72 Pulse: 76 Respirations: 19 Pulse Ox (%): 99 - Physical Exam Other Physical/Emotional Findings: Agitated/anxious Assessment & Plan Physician Review Additional Text: Physical exam GEN: Alert, oriented, NAD HEENT: Normal conjunctiva, sclera anicteric CV: Regular rate and rhythm, no edema Pulm: Nonlabored respiration on room air ABD: Soft, nontender, nondistended, +colostomy with stool in place Integumentary: Large b/l ischial pressure ulcers. R with clean base healthy tissue, mild serosanguineous oozing stout catheter in place Problem list Acute metabolic encephalopathy secondary to sepsis, resolved Acute renal failure, prerenal secondary to dehydration, resolved Rhabdomyolysis, resolved Bilateral ischial decubitus ulceration Sepsis secondary to decubitus ulcer/osteomyelitis, with bacteremia Chronic microcytic anemia, iron deficiency/chronic disease Polysubstance abuse Paraplegia h/o colostomy h/o suprapubic catheter, now closed Continue IV meropenem blood culture 11/17:Proteus, Klebsiella ESBL. Repeat blood culture 11/20: No growth to date. PICC line for outpatient IV antibiotics ordered. Patient refused initially, now agreeable Femoral line removed 11/29, peripheral IV access obtained Leukocytosis resolved Transthoracic Echocardiogram: No vegetation. Local wound care with wet to dry dressing General surgery recommended skin flap in the near future. continue [place] 10s rash improved, nearly resolved. On hydrocortisone cream MADDIE resolved. Nephrology following Patient not a candidate for LTAC placement per social service - no further acute days Significant iron deficiency, start p.o. iron 12/01, can transition to IV iron once PICC placed. Patient states he is a hard stick and does not want to compromise his current peripheral IV Dispo: SNF for wound care and IV antibiotics, will need 6 weeks total meropenem will need skin flap in near future Time Spent Managing Pts Care (In Minutes): 35
[2020-12-01] MEDS: MAGNESIUM OXIDE 400 MG TAB PO SCH (09:00)
[2020-12-01] MEDS: SODIUM HYPOCHLORITE 0.25% 473 ML TOP SCH (09:00)
[2020-12-01] MEDS: ENSURE HIGH PROTEIN 237 ML CAN PO SCH ×2 (10:02→21:00)
[2020-12-01] MEDS: JUVEN PACKET PO SCH ×2 (10:02→21:00)
[2020-12-01] MEDS: ASPIRIN 81 MG CHEWABLE TABLET PO SCH (10:03)
[2020-12-01] MEDS: ZINC SULFATE 220 MG CAP PO SCH (10:03)
[2020-12-01] MEDS: ASCORBIC ACID 500 MG TABLET PO SCH (10:03)
[2020-12-01] MEDS: AMILORIDE HCL 5 MG TABLET PO SCH (10:03)
--- NOTE | 2020-12-01 11:17 | P.PN ---
Subjective Date of Service: 12/01/20 Chief Complaint: AMS, dehydration. Patient seen examined at bedside, right femoral central line removed on 11/29. Peripheral IV access gained PICC line pending. Patient now agreeable. Review of Systems 10-point ROS is otherwise unremarkable Physical Examination - Vital Signs Temperature: 98.6 F Blood Pressure: 105/60 Pulse: 66 Respirations: 18 Pulse Ox (%): 100 - Physical Exam Other Physical/Emotional Findings: Agitated/anxious - Studies Laboratory Last Values WBC 22.40 K/uL (4.3-10.9) H* 11/17/20 12:05 RBC 4.82 M/uL (4.33-5.43) 11/17/20 12:05 Hgb 11.3 g/dL (13.6-17.9) L 11/17/20 12:05 Hct 35.9 % (39.6-49.0) L 11/17/20 12:05 MCV 74.4 fL (80-100) L 11/17/20 12:05 MCH 23.4 pg (27.0-35.0) L 11/17/20 12:05 MCHC 31.5 g/dL (32.0-36.0) L 11/17/20 12:05 RDW 18.4 % (12.1-15.2) H 11/17/20 12:05 Plt Count 709 K/uL (152-406) H 11/17/20 12:05 MPV 8.3 fL (7.6-11.3) 11/17/20 12:05 Neutrophils % 87.7 % (41.7-73.7) H 11/17/20 12:05 Lymphocytes % 4.2 % (15.3-44.8) L 11/17/20 12:05 Monocytes % 7.8 % (3.3-12.3) 11/17/20 12:05 Eosinophils % 0.0 % (0-4.4) 11/17/20 12:05 Basophils % 0.3 % (0-1.3) 11/17/20 12:05 Absolute Neutrophils 19.7 K/uL (1.8-8.0) H 11/17/20 12:05 Segmented Neutrophils 87 % (40-80) H 11/17/20 12:05 Absolute Lymphocytes 0.9 K/uL (0.7-4.9) 11/17/20 12:05 Lymphocytes 7 % (15-42) L 11/17/20 12:05 Monocytes 6 % (0-10) 11/17/20 12:05 Absolute Monocytes 1.8 K/uL (0.1-1.3) H 11/17/20 12:05 Absolute Eosinophils 0.0 K/uL (0-0.5) 11/17/20 12:05 Absolute Basophils 0.1 K/uL (0-0.5) 11/17/20 12:05 Platelet Estimate Incr 11/17/20 12:05 Anisocytosis Slight 11/17/20 12:05 Morphology Comment Noted (NOT SEEN) 11/17/20 12:05 PT 18.2 SECONDS (9.5-12.5) H 11/17/20 12:05 INR 1.58 11/17/20 12:05 APTT 29.5 SECONDS (24.3-36.9) 11/17/20 12:05 Sodium 130 mmol/L (136-145) L 11/17/20 12:05 Potassium 4.7 mmol/L (3.5-5.1) 11/17/20 12:05 Chloride 95 mmol/L (98-107) L 11/17/20 12:05 Carbon Dioxide 16 mmol/L (21-32) L 11/17/20 12:05 BUN 52 mg/dL (7-18) H 11/17/20 12:05 Creatinine 5.29 mg/dL (0.55-1.3) H* 11/17/20 12:05 Estimated GFR 12 mL/min (=/>90) L 11/17/20 12:05 Glucose 141 mg/dL (74-106) H 11/17/20 12:05 Lactic Acid 6.4 11/17/20 12:05 Calcium 8.2 mg/dL (8.5-10.1) L 11/17/20 12:05 Total Bilirubin 0.6 mg/dL (0.2-1.0) 11/17/20 12:05 Direct Bilirubin 0.2 mg/dL (0-0.2) 11/17/20 12:05 AST 50 U/L (15-37) H 11/17/20 12:05 ALT 18 U/L (12-78) 11/17/20 12:05 Alkaline Phosphatase 100 U/L (45-117) 11/17/20 12:05 Creatine Kinase 1771 U/L (39-308) H* 11/17/20 12:05 Rapid Troponin I < 0.02 ng/mL (0.0-0.045) 11/17/20 12:05 Serum Total Protein 8.6 g/dL (6.4-8.2) H 11/17/20 12:05 Albumin 2.9 g/dL (3.4-5.0) L 11/17/20 12:05 Globulin 5.7 g/dL (2.3-3.5) H 11/17/20 12:05 Albumin/Globulin Ratio 0.5 (1.1-1.8) L 11/17/20 12:05 Procalcitonin 376.15 ng/mL (<0.050) H 11/17/20 12:05 Urine Color Cancelled 11/17/20 15:34 Urine Appearance Cancelled 11/17/20 15:34 Urine pH Cancelled 11/17/20 15:34 Ur Specific [place] Cancelled 11/17/20 15:34 Glucose (UA)(Auto) Cancelled 11/17/20 15:34 Urine Ketones Cancelled 11/17/20 15:34 Urine Blood Cancelled 11/17/20 15:34 Urine Nitrite Cancelled 11/17/20 15:34 Urine Bilirubin Cancelled 11/17/20 15:34 Urine Urobilinogen Cancelled 11/17/20 15:34 Ur Leukocyte Esterase Cancelled 11/17/20 15:34 Urine RBC 5-10 /HPF (NONE SEEN) H 11/17/20 12:56 Urine WBC 10-20 /HPF (<5) H 11/17/20 12:56 Ur Squamous Epith Cells 5-10 /HPF (NONE SEEN) H 11/17/20 12:56 Urine Bacteria <20 /HPF (NONE SEEN) 11/17/20 12:56 Urine Mucus 2+ /HPF (NONE SEEN) 11/17/20 12:56 Urine Culture Reflexed Reflexed 11/17/20 12:56 Urine Total Protein Cancelled 11/17/20 15:34 Opiates Screen Negative (NEGATIVE) 11/17/20 12:56 Methadone Screen Negative (NEGATIVE) 11/17/20 12:56 Ur Barbiturates Screen Negative (NEGATIVE) 11/17/20 12:56 Ur Phencyclidine Scrn Negative (NEGATIVE) 11/17/20 12:56 Amphetamines Screen Positive (NEGATIVE) H 11/17/20 12:56 Benzodiazepines Screen Negative (NEGATIVE) 11/17/20 12:56 Cocaine Screen Positive (NEGATIVE) H 11/17/20 12:56 Ur THC Screen Negative (NEGATIVE) 11/17/20 12:56 SARS-CoV-2 Rap RNA(RT-PCR) Negative (NEGATIVE) 11/17/20 12:30 Assessment And Plan - Plan Physical Exam: General: Oriented x1, Cachectic, Confused HEENT: Atraumatic, Normocephalic Neck: Supple, 2+ carotid pulse no bruit Respiratory: Clear to auscultation bilaterally, Normal air movement Cardiovascular: No edema, Normal pulses, Regular rate/rhythm Capillary refill: <2 Seconds Gastrointestinal: Other (colostomy bag) Musculoskeletal: Other (Left AKA, right 5th toe amputation) Integumentary: Pressure ulcer (Bilateral stage IV ischial decubitus ulcers. Draining ban blood, status post surgical I and D performed on 11/17 mary wound tissue erythematous) Neurological: Other (Paraplegic) Urinary: Scott catheter Rectal: Deferred Other Physical/Emotional Findings: Agitated/anxious Conclusions/Impression: Antibiotics: Current: merum start: 11/19 stop: 01/02 on 01/02 will need two doses Doxycycline Start: 11/17 Stop: 11/25 DC: Cefepime Start: 11/17 Stop: 11/19 Patient received single dose of vancomycin on 11/17 Assessment/PLAN: Severe urosepsis with bacteremia and UTI Severe sepsis on admission. Blood cultures performed on 11/17 growing gram- negative rods in 4/4 bottles--growing an ESBL producing Klebsiella and Proteus mirabilis. Repeat blood cultures performed on 11/19 growing a coagulase-negative Staph in 1/2 bottles, likely contaminant. Blood cultures taken on 11/20 show NGTD. Urine culture performed on 11/17 growing ESBL Klebsiella, cefepime discontinued and meropenem started. Source of bacteremia likely urine. Patient missed 2 doses of antibiotics due to patient refusing, antibiotics end date adjusted. Leukocytosis with left shift resolved Bilateral stage IV ischial decubitus ulcer The patient underwent surgical I& D on 11/17. Patient's taken back to OR on 11/19 and remaining necrotic tissue was removed, wound VAC has been placed to bilateral wounds. Wound VAC taken off on 11/26--patient now refusing. Continue wound care per surgical team, utilizing [employer]in's wet-to-dry. Right ischial aspect of pelvis exposed, Patient will need to be treated for osteomyelitis with IV antibiotics for total duration of 6 weeks. Paraplegic with bed bound/wheelchair-bound status, anemia of chronic disease, protein caloric malnutrition, dehydration All aspects which hinder wound healing ability. Recommend placement of air mattress. Recommend repositioning patient in bed every 2 hr during waking hr. Avoid direct pressure over wounds. Patient started on vitamins to promote wound healing including vitamin-C, vitamin-D, and zinc. Vitamin-D level pending. Recommend supplemental Ensure protein drinks. Diffuse maculopapular rash Rash present on admission, not likely due to any medication/antibiotic therapy. Rash likely due to patient being found in did show for an estimated 2 days. Per EMS patient was found to have antibiotics all over his body. Continue treatment with Benadryl. RPR to rule out syphilis pending Acute encephalopathy, Rhabdomyolysis, MADDIE, Polysubstance abuse Medical management per primary team Renal function worsening Dispo: Would prefer to transfer patient to [facility] for antibiotic and wound care treatment however patient has no more acute care days. Patient will likely be [facility] on merum. Patient will need antibiotic duration of 6 weeks with weekly labs including: CBC, CMP, C reactive protein, ESR. Patient now considering hospice. Plan of care discussed with Dr. Hobbs Thank you for consultation Physician Review: Patient Assessed, Agree with Above Assessment and Plan
[2020-12-01] MEDS: HYDROCORTISONE 1 % CREAM 30GM TOP PRN (16:45)
[2020-12-01] MEDS: FERROUS SULFATE 325 MG TAB PO SCH ×2 (16:45→21:56)
--- NOTE | 2020-12-01 21:39 | PN ---
Date of Progress Note: 12/01/2020 Chief Complaint: Acute kidney injury, volume depletion, altered mental status. History: Patient has multiple medical problems. He is found to have severe sepsis with urinary trac t infection. Urine culture was growing ESBL Klebsiella. He has stage IV sacral decubitus. He is cu rrently on meropenum. Review of Systems: Denies complaints. Physical Examination: Lungs: Clear to auscultation bilaterally. Heart: S1 and S2. Abdomen: Soft, benign. Extremities: No edema. Impression And Plan: 1.Acute kidney injury secondary to volume depletion. Continue hydration. He completed IV fluids. Patient has Scott catheter. Monitor fluid balance, urine output. 2.Renal function has stabilized. Electrolytes will be evaluated today. Workup is pending. Patient has hypomagnesemia and has been treated with magnesium supplementation. 3.Sepsis, urinary tract infection. Continue meropenem. 4.Anemia. There is no evidence of gastrointestinal bleeding. Monitor hemoglobin level. Adjust iro n replacement for iron deficiency. EB/MODL Voice ID: [id number] Report ID: [id number]
[2020-12-02] MEDS: Meropenem 1 GM/100 ML BAG IV SCH ×3 (03:52→16:00)
[2020-12-02] MEDS: HYDROCODONE/APAP 10/325 TAB PO PRN ×4 (03:53→20:29)
[2020-12-02] MEDS ORDERED: NA CHLORIDE 0.9% 500 ML IV ONE (04:33)
[2020-12-02] MEDS: MAGNESIUM OXIDE 400 MG TAB PO SCH ×2 (09:00→20:29)
[2020-12-02] MEDS: ASPIRIN 81 MG CHEWABLE TABLET PO SCH (09:26)
[2020-12-02] MEDS: FERROUS SULFATE 325 MG TAB PO SCH ×2 (09:26→20:29)
[2020-12-02] MEDS: ASCORBIC ACID 500 MG TABLET PO SCH (09:27)
[2020-12-02] MEDS: AMILORIDE HCL 5 MG TABLET PO SCH (09:27)
[2020-12-02] MEDS: ZINC SULFATE 220 MG CAP PO SCH (09:27)
[2020-12-02] MEDS: DRISDOL (VITAMIN D=ERGOCALCIFEROL) 50000 UNIT CAP PO SCH (09:27)
[2020-12-02] MEDS: JUVEN PACKET PO SCH ×2 (09:28→20:30)
[2020-12-02] MEDS: ENSURE HIGH PROTEIN 237 ML CAN PO SCH ×2 (09:28→20:30)
[2020-12-02] MEDS: SODIUM HYPOCHLORITE 0.25% 473 ML TOP SCH (10:07)
--- NOTE | 2020-12-02 10:46 | P.PN ---
Subjective Date of Service: 12/02/20 Chief Complaint: AMS, dehydration. Patient seen examined at bedside, current wound dressing per surgical team is Dakin's wet-to-dry to bilateral ischial wounds. Review of Systems 10-point ROS is otherwise unremarkable Physical Examination - Vital Signs Temperature: 97.9 F Blood Pressure: 105/62 Pulse: 103 Respirations: 18 Pulse Ox (%): 98 - Physical Exam Other Physical/Emotional Findings: Agitated/anxious - Studies Laboratory Last Values WBC 22.40 K/uL (4.3-10.9) H* 11/17/20 12:05 RBC 4.82 M/uL (4.33-5.43) 11/17/20 12:05 Hgb 11.3 g/dL (13.6-17.9) L 11/17/20 12:05 Hct 35.9 % (39.6-49.0) L 11/17/20 12:05 MCV 74.4 fL (80-100) L 11/17/20 12:05 MCH 23.4 pg (27.0-35.0) L 11/17/20 12:05 MCHC 31.5 g/dL (32.0-36.0) L 11/17/20 12:05 RDW 18.4 % (12.1-15.2) H 11/17/20 12:05 Plt Count 709 K/uL (152-406) H 11/17/20 12:05 MPV 8.3 fL (7.6-11.3) 11/17/20 12:05 Neutrophils % 87.7 % (41.7-73.7) H 11/17/20 12:05 Lymphocytes % 4.2 % (15.3-44.8) L 11/17/20 12:05 Monocytes % 7.8 % (3.3-12.3) 11/17/20 12:05 Eosinophils % 0.0 % (0-4.4) 11/17/20 12:05 Basophils % 0.3 % (0-1.3) 11/17/20 12:05 Absolute Neutrophils 19.7 K/uL (1.8-8.0) H 11/17/20 12:05 Segmented Neutrophils 87 % (40-80) H 11/17/20 12:05 Absolute Lymphocytes 0.9 K/uL (0.7-4.9) 11/17/20 12:05 Lymphocytes 7 % (15-42) L 11/17/20 12:05 Monocytes 6 % (0-10) 11/17/20 12:05 Absolute Monocytes 1.8 K/uL (0.1-1.3) H 11/17/20 12:05 Absolute Eosinophils 0.0 K/uL (0-0.5) 11/17/20 12:05 Absolute Basophils 0.1 K/uL (0-0.5) 11/17/20 12:05 Platelet Estimate Incr 11/17/20 12:05 Anisocytosis Slight 11/17/20 12:05 Morphology Comment Noted (NOT SEEN) 11/17/20 12:05 PT 18.2 SECONDS (9.5-12.5) H 11/17/20 12:05 INR 1.58 11/17/20 12:05 APTT 29.5 SECONDS (24.3-36.9) 11/17/20 12:05 Sodium 130 mmol/L (136-145) L 11/17/20 12:05 Potassium 4.7 mmol/L (3.5-5.1) 11/17/20 12:05 Chloride 95 mmol/L (98-107) L 11/17/20 12:05 Carbon Dioxide 16 mmol/L (21-32) L 11/17/20 12:05 BUN 52 mg/dL (7-18) H 11/17/20 12:05 Creatinine 5.29 mg/dL (0.55-1.3) H* 11/17/20 12:05 Estimated GFR 12 mL/min (=/>90) L 11/17/20 12:05 Glucose 141 mg/dL (74-106) H 11/17/20 12:05 Lactic Acid 6.4 11/17/20 12:05 Calcium 8.2 mg/dL (8.5-10.1) L 11/17/20 12:05 Total Bilirubin 0.6 mg/dL (0.2-1.0) 11/17/20 12:05 Direct Bilirubin 0.2 mg/dL (0-0.2) 11/17/20 12:05 AST 50 U/L (15-37) H 11/17/20 12:05 ALT 18 U/L (12-78) 11/17/20 12:05 Alkaline Phosphatase 100 U/L (45-117) 11/17/20 12:05 Creatine Kinase 1771 U/L (39-308) H* 11/17/20 12:05 Rapid Troponin I < 0.02 ng/mL (0.0-0.045) 11/17/20 12:05 Serum Total Protein 8.6 g/dL (6.4-8.2) H 11/17/20 12:05 Albumin 2.9 g/dL (3.4-5.0) L 11/17/20 12:05 Globulin 5.7 g/dL (2.3-3.5) H 11/17/20 12:05 Albumin/Globulin Ratio 0.5 (1.1-1.8) L 11/17/20 12:05 Procalcitonin 376.15 ng/mL (<0.050) H 11/17/20 12:05 Urine Color Cancelled 11/17/20 15:34 Urine Appearance Cancelled 11/17/20 15:34 Urine pH Cancelled 11/17/20 15:34 Ur Specific [place] Cancelled 11/17/20 15:34 Glucose (UA)(Auto) Cancelled 11/17/20 15:34 Urine Ketones Cancelled 11/17/20 15:34 Urine Blood Cancelled 11/17/20 15:34 Urine Nitrite Cancelled 11/17/20 15:34 Urine Bilirubin Cancelled 11/17/20 15:34 Urine Urobilinogen Cancelled 11/17/20 15:34 Ur Leukocyte Esterase Cancelled 11/17/20 15:34 Urine RBC 5-10 /HPF (NONE SEEN) H 11/17/20 12:56 Urine WBC 10-20 /HPF (<5) H 11/17/20 12:56 Ur Squamous Epith Cells 5-10 /HPF (NONE SEEN) H 11/17/20 12:56 Urine Bacteria <20 /HPF (NONE SEEN) 11/17/20 12:56 Urine Mucus 2+ /HPF (NONE SEEN) 11/17/20 12:56 Urine Culture Reflexed Reflexed 11/17/20 12:56 Urine Total Protein Cancelled 11/17/20 15:34 Opiates Screen Negative (NEGATIVE) 11/17/20 12:56 Methadone Screen Negative (NEGATIVE) 11/17/20 12:56 Ur Barbiturates Screen Negative (NEGATIVE) 11/17/20 12:56 Ur Phencyclidine Scrn Negative (NEGATIVE) 11/17/20 12:56 Amphetamines Screen Positive (NEGATIVE) H 11/17/20 12:56 Benzodiazepines Screen Negative (NEGATIVE) 11/17/20 12:56 Cocaine Screen Positive (NEGATIVE) H 11/17/20 12:56 Ur THC Screen Negative (NEGATIVE) 11/17/20 12:56 SARS-CoV-2 Rap RNA(RT-PCR) Negative (NEGATIVE) 11/17/20 12:30 Assessment And Plan - Plan Physical Exam: General: Oriented x1, Cachectic, Confused HEENT: Atraumatic, Normocephalic Neck: Supple, 2+ carotid pulse no bruit Respiratory: Clear to auscultation bilaterally, Normal air movement Cardiovascular: No edema, Normal pulses, Regular rate/rhythm Capillary refill: <2 Seconds Gastrointestinal: Other (colostomy bag) Musculoskeletal: Other (Left AKA, right 5th toe amputation) Integumentary: Pressure ulcer (Bilateral stage IV ischial decubitus ulcers. Draining ban blood, status post surgical I and D performed on 11/17 mary wound tissue erythematous) Neurological: Other (Paraplegic) Urinary: Scott catheter Rectal: Deferred Other Physical/Emotional Findings: Agitated/anxious Conclusions/Impression: Antibiotics: Current: merum start: 11/19 stop: 01/02 on 01/02 will need two doses Doxycycline Start: 11/17 Stop: 11/25 DC: Cefepime Start: 11/17 Stop: 11/19 Patient received single dose of vancomycin on 11/17 Assessment/PLAN: Severe urosepsis with bacteremia and UTI Severe sepsis on admission. Blood cultures performed on 11/17 growing gram- negative rods in 4/4 bottles--growing an ESBL producing Klebsiella and Proteus mirabilis. Repeat blood cultures performed on 11/19 growing a coagulase-negative Staph in 1/2 bottles, likely contaminant. Blood cultures taken on 11/20 show NGTD. Urine culture performed on 11/17 growing ESBL Klebsiella, cefepime discontinued and meropenem started. Source of bacteremia likely urine. Patient missed 2 doses of antibiotics due to patient refusing, antibiotics end date adjusted. Leukocytosis with left shift resolved Bilateral stage IV ischial decubitus ulcer The patient underwent surgical I& D on 11/17. Patient's taken back to OR on 11/19 and remaining necrotic tissue was removed, wound VAC placed to bilateral wounds. Wound VAC taken off on 11/26--patient refusing. Continue wound care per surgical team, utilizing Dakin's wet-to-dry. Right ischial aspect of pelvis exposed, imperative that this area be kept moist clean and covered. Patient will need to be treated for osteomyelitis with IV antibiotics for total duration of 6 weeks. Paraplegic with bed bound/wheelchair-bound status, anemia of chronic disease, protein caloric malnutrition, dehydration All aspects which hinder wound healing ability. Recommend placement of air mattress. Recommend repositioning patient in bed every 2 hr during waking hr. Avoid direct pressure over wounds. Patient started on vitamins to promote wound healing including vitamin-C, vitamin-D, and zinc. Vitamin-D level pending. Recommend supplemental Ensure protein drinks. Diffuse maculopapular rash Rash present on admission, not likely due to any medication/antibiotic therapy. Rash likely due to patient being found in did show for an estimated 2 days. Per EMS patient was found to have antibiotics all over his body. Continue treatment with Benadryl. RPR to rule out syphilis pending Acute encephalopathy, Rhabdomyolysis, MADDIE, Polysubstance abuse Medical management per primary team Renal function worsening Dispo: Would prefer to transfer patient to [facility] for antibiotic and wound care treatment however patient has no more acute care days. Patient will likely be sent to shelter on merum. Patient will need antibiotic duration of 6 weeks with weekly labs including: CBC, CMP, C reactive protein, ESR. Plan of care discussed with Dr. Hobbs Thank you for consultation Physician Review: Patient Assessed, Agree with Above Assessment and Plan
--- NOTE | 2020-12-02 12:14 | RAD REPORT ---
EXAM DESCRIPTION: RAD - Chest Single View - 12/02/2020 12:06 pm CLINICAL HISTORY: PICC placement COMPARISON: Chest Single View dated 11/17/2020 FINDINGS: Lines: Left subclavian approach PICC with tip difficult to visualize. It can be seen at th e level of the distal SVC but the tip is not clearly seen. Lungs: No evidence of edema or pneumonia. Pleural: No significant pleural effusions or pneumothorax. Cardiac: The heart size is within normal limits. Bones: No acute fractures. Remote left-sided rib fractures. Other: Metallic debris overlying the mid and left upper thorax. IMPRESSION: No acute cardiopulmonary disease. Left subclavian approach PICC which traverses the SVC but the tip is not visualized to confirm satisfactory placement.
--- NOTE | 2020-12-02 14:01 | PN ---
Date of Progress Note: 12/02/2020 Subjective: The patient was admitted with acute kidney injury secondary to prerenal/rhabdo. The patient's after hydration kidney function has been normalized. The patient had decubitus ulcer/osteo. The patient has been on antibiotic. Waiting for SNF placement. Physical Examination: Vital Signs: Blood pressure 105/62, pulse of 103, afebrile. The patient had good urine output of 3100. Chest: Clear to auscultation. Heart: S1, S2. Regular. Abdomen: Colostomy. No organomegaly. Extremities: Left above-knee amputation. No edema. Neurologic: Alert. No focality. Laboratory Data: H and H 9.06/24. Sodium 141, potassium 3.9, bicarb 29, BUN 13, creatinine 0.6, calcium 8.5, phosphorus 2.8, magnesium 1.5. The patient refusing any new lab. This is lab back in November 29. Current Medications: The patient on include meropenem, aspirin, ferrous sulfate, magnesium oxide, , vitamin C, and vitamin D. Assessment And Plan: 1. Acute kidney injury secondary to prerenal, recovered, resolved. 2. Hypertension, controlled, optimal. 3. Rhabdomyolysis secondary to fall, resolved. Keep holding all IV fluids. 4. Decubitus ulcer/osteomyelitis. Continue current antibiotic dose appropriate. We will follow up. Time spent examining the patient [id number] placing order discussing with the patient reviewing data discussing the case with all of our subspecialty including hospitalist 45 minutes MESSI Voice ID: [id number] Report ID: [id number]
--- NOTE | 2020-12-02 14:57 | P.PN ---
Subjective Date of Service: 12/02/20 Chief Complaint: AMS, dehydration. Patient has no new complain. He has clinically improved. Physical Examination - Vital Signs Temperature: 98.8 F Blood Pressure: 130/58 Pulse: 81 Respirations: 20 Pulse Ox (%): 100 - Physical Exam General: Alert, In no apparent distress HEENT: Mucous membr. moist/pink Neck: JVD not distended Respiratory: Clear to auscultation bilaterally, Normal air movement Cardiovascular: No edema, Regular rate/rhythm, Normal S1 S2 Gastrointestinal: Soft and benign, Non-distended, Other (Colostomy bag) Integumentary: No rashes Neurological: Other (No focal motor deficit) Other Physical/Emotional Findings: Agitated/anxious Assessment And Plan - Current Problems (Diagnosis) (1) Gram negative sepsis Current Visit: Yes Status: Acute (2) Infected decubitus ulcer Current Visit: Yes Status: Acute (3) Osteomyelitis of sacrum Current Visit: Yes Status: Acute (4) Polysubstance abuse Current Visit: Yes Status: Acute (5) Erythematous rash Current Visit: Yes Status: Acute (6) Acute renal failure Current Visit: Yes Status: Acute (7) Paraplegia Current Visit: Yes Status: Acute (8) Gram-positive cocci bacteremia Current Visit: Yes Status: Acute Physician Review: Patient Assessed, Agree with Above Assessment and Plan Physician Review Additional Text: Problem list Acute metabolic encephalopathy secondary to sepsis, resolved Acute renal failure, prerenal secondary to dehydration, resolved Rhabdomyolysis, resolved Bilateral ischial decubitus ulceration Sepsis secondary to decubitus ulcer/osteomyelitis, with bacteremia Chronic microcytic anemia, iron deficiency/chronic disease Polysubstance abuse Paraplegia h/o colostomy h/o suprapubic catheter, now closed Continue IV meropenem blood culture 11/17:Proteus, Klebsiella ESBL. Repeat blood culture 11/20: No growth to date. PICC line for outpatient IV antibiotics placed. Patient refused initially, now agreeable Leukocytosis resolved Transthoracic Echocardiogram: No vegetation. Local wound care with wet to dry dressing General surgery recommended skin flap in the near future. Pain management as needed. rash nearly resolved. On hydrocortisone cream MADDIE resolved. Nephrology following Patient not a candidate for LTAC placement per social service - no further acute days Significant iron deficiency, continue p.o. iron. Dispo: SNF for wound care and IV antibiotics, will need 6 weeks total meropenem will need skin flap in near future.
[2020-12-03] MEDS: Meropenem 1 GM/100 ML BAG IV SCH ×3 (01:53→16:00)
[2020-12-03] MEDS: HYDROCODONE/APAP 10/325 TAB PO PRN ×3 (01:54→12:48)
[2020-12-03] MEDS: FERROUS SULFATE 325 MG TAB PO SCH ×2 (08:00→21:20)
[2020-12-03] MEDS: ASCORBIC ACID 500 MG TABLET PO SCH (08:00)
[2020-12-03] MEDS: ASPIRIN 81 MG CHEWABLE TABLET PO SCH (08:00)
[2020-12-03] MEDS: AMILORIDE HCL 5 MG TABLET PO SCH (08:00)
[2020-12-03] MEDS: ZINC SULFATE 220 MG CAP PO SCH (08:00)
[2020-12-03] MEDS: ENSURE HIGH PROTEIN 237 ML CAN PO SCH ×2 (08:01→21:20)
[2020-12-03] MEDS: JUVEN PACKET PO SCH ×2 (08:01→21:21)
[2020-12-03] MEDS: MAGNESIUM OXIDE 400 MG TAB PO SCH ×2 (08:02→21:00)
[2020-12-03] MEDS: SODIUM HYPOCHLORITE 0.25% 473 ML TOP SCH (08:42)
[2020-12-03] MEDS ORDERED: MORPHINE 2 MG/ML SYR IV ONE ×2 (10:12→17:37)
--- NOTE | 2020-12-03 11:04 | P.PN ---
Subjective Date of Service: 12/03/20 Chief Complaint: AMS, dehydration. Patient seen examined at bedside, left arm PICC line placed. From ID standpoint patient is ready for DC. Review of Systems 10-point ROS is otherwise unremarkable Physical Examination - Vital Signs Temperature: 97.5 F Blood Pressure: 138/64 Pulse: 75 Respirations: 17 Pulse Ox (%): 95 - Physical Exam Other Physical/Emotional Findings: Agitated/anxious - Studies Laboratory Last Values WBC 22.40 K/uL (4.3-10.9) H* 11/17/20 12:05 RBC 4.82 M/uL (4.33-5.43) 11/17/20 12:05 Hgb 11.3 g/dL (13.6-17.9) L 11/17/20 12:05 Hct 35.9 % (39.6-49.0) L 11/17/20 12:05 MCV 74.4 fL (80-100) L 11/17/20 12:05 MCH 23.4 pg (27.0-35.0) L 11/17/20 12:05 MCHC 31.5 g/dL (32.0-36.0) L 11/17/20 12:05 RDW 18.4 % (12.1-15.2) H 11/17/20 12:05 Plt Count 709 K/uL (152-406) H 11/17/20 12:05 MPV 8.3 fL (7.6-11.3) 11/17/20 12:05 Neutrophils % 87.7 % (41.7-73.7) H 11/17/20 12:05 Lymphocytes % 4.2 % (15.3-44.8) L 11/17/20 12:05 Monocytes % 7.8 % (3.3-12.3) 11/17/20 12:05 Eosinophils % 0.0 % (0-4.4) 11/17/20 12:05 Basophils % 0.3 % (0-1.3) 11/17/20 12:05 Absolute Neutrophils 19.7 K/uL (1.8-8.0) H 11/17/20 12:05 Segmented Neutrophils 87 % (40-80) H 11/17/20 12:05 Absolute Lymphocytes 0.9 K/uL (0.7-4.9) 11/17/20 12:05 Lymphocytes 7 % (15-42) L 11/17/20 12:05 Monocytes 6 % (0-10) 11/17/20 12:05 Absolute Monocytes 1.8 K/uL (0.1-1.3) H 11/17/20 12:05 Absolute Eosinophils 0.0 K/uL (0-0.5) 11/17/20 12:05 Absolute Basophils 0.1 K/uL (0-0.5) 11/17/20 12:05 Platelet Estimate Incr 11/17/20 12:05 Anisocytosis Slight 11/17/20 12:05 Morphology Comment Noted (NOT SEEN) 11/17/20 12:05 PT 18.2 SECONDS (9.5-12.5) H 11/17/20 12:05 INR 1.58 11/17/20 12:05 APTT 29.5 SECONDS (24.3-36.9) 11/17/20 12:05 Sodium 130 mmol/L (136-145) L 11/17/20 12:05 Potassium 4.7 mmol/L (3.5-5.1) 11/17/20 12:05 Chloride 95 mmol/L (98-107) L 11/17/20 12:05 Carbon Dioxide 16 mmol/L (21-32) L 11/17/20 12:05 BUN 52 mg/dL (7-18) H 11/17/20 12:05 Creatinine 5.29 mg/dL (0.55-1.3) H* 11/17/20 12:05 Estimated GFR 12 mL/min (=/>90) L 11/17/20 12:05 Glucose 141 mg/dL (74-106) H 11/17/20 12:05 Lactic Acid 6.4 11/17/20 12:05 Calcium 8.2 mg/dL (8.5-10.1) L 11/17/20 12:05 Total Bilirubin 0.6 mg/dL (0.2-1.0) 11/17/20 12:05 Direct Bilirubin 0.2 mg/dL (0-0.2) 11/17/20 12:05 AST 50 U/L (15-37) H 11/17/20 12:05 ALT 18 U/L (12-78) 11/17/20 12:05 Alkaline Phosphatase 100 U/L (45-117) 11/17/20 12:05 Creatine Kinase 1771 U/L (39-308) H* 11/17/20 12:05 Rapid Troponin I < 0.02 ng/mL (0.0-0.045) 11/17/20 12:05 Serum Total Protein 8.6 g/dL (6.4-8.2) H 11/17/20 12:05 Albumin 2.9 g/dL (3.4-5.0) L 11/17/20 12:05 Globulin 5.7 g/dL (2.3-3.5) H 11/17/20 12:05 Albumin/Globulin Ratio 0.5 (1.1-1.8) L 11/17/20 12:05 Procalcitonin 376.15 ng/mL (<0.050) H 11/17/20 12:05 Urine Color Cancelled 11/17/20 15:34 Urine Appearance Cancelled 11/17/20 15:34 Urine pH Cancelled 11/17/20 15:34 Ur Specific [place] Cancelled 11/17/20 15:34 Glucose (UA)(Auto) Cancelled 11/17/20 15:34 Urine Ketones Cancelled 11/17/20 15:34 Urine Blood Cancelled 11/17/20 15:34 Urine Nitrite Cancelled 11/17/20 15:34 Urine Bilirubin Cancelled 11/17/20 15:34 Urine Urobilinogen Cancelled 11/17/20 15:34 Ur Leukocyte Esterase Cancelled 11/17/20 15:34 Urine RBC 5-10 /HPF (NONE SEEN) H 11/17/20 12:56 Urine WBC 10-20 /HPF (<5) H 11/17/20 12:56 Ur Squamous Epith Cells 5-10 /HPF (NONE SEEN) H 11/17/20 12:56 Urine Bacteria <20 /HPF (NONE SEEN) 11/17/20 12:56 Urine Mucus 2+ /HPF (NONE SEEN) 11/17/20 12:56 Urine Culture Reflexed Reflexed 11/17/20 12:56 Urine Total Protein Cancelled 11/17/20 15:34 Opiates Screen Negative (NEGATIVE) 11/17/20 12:56 Methadone Screen Negative (NEGATIVE) 11/17/20 12:56 Ur Barbiturates Screen Negative (NEGATIVE) 11/17/20 12:56 Ur Phencyclidine Scrn Negative (NEGATIVE) 11/17/20 12:56 Amphetamines Screen Positive (NEGATIVE) H 11/17/20 12:56 Benzodiazepines Screen Negative (NEGATIVE) 11/17/20 12:56 Cocaine Screen Positive (NEGATIVE) H 11/17/20 12:56 Ur THC Screen Negative (NEGATIVE) 11/17/20 12:56 SARS-CoV-2 Rap RNA(RT-PCR) Negative (NEGATIVE) 11/17/20 12:30 Assessment And Plan - Plan Physical Exam: General: Oriented x1, Cachectic, Confused HEENT: Atraumatic, Normocephalic Neck: Supple, 2+ carotid pulse no bruit Respiratory: Clear to auscultation bilaterally, Normal air movement Cardiovascular: No edema, Normal pulses, Regular rate/rhythm Capillary refill: <2 Seconds Gastrointestinal: Other (colostomy bag) Musculoskeletal: Other (Left AKA, right 5th toe amputation) Integumentary: Pressure ulcer (Bilateral stage IV ischial decubitus ulcers. Draining ban blood, status post surgical I and D performed on 11/17 mary wound tissue erythematous) Neurological: Other (Paraplegic) Urinary: Scott catheter Rectal: Deferred Other Physical/Emotional Findings: Agitated/anxious Conclusions/Impression: Antibiotics: Current: merum start: 11/19 stop: 01/02 on 01/02 will need two doses Doxycycline Start: 11/17 Stop: 11/25 DC: Cefepime Start: 11/17 Stop: 11/19 Patient received single dose of vancomycin on 11/17 Assessment/PLAN: Severe urosepsis with bacteremia and UTI Severe sepsis on admission. Blood cultures performed on 11/17 growing gram- negative rods in 4/4 bottles--growing an ESBL producing Klebsiella and Proteus mirabilis. Repeat blood cultures performed on 11/19 growing a coagulase-negative Staph in 1/2 bottles, likely contaminant. Blood cultures taken on 11/20 show NGTD. Urine culture performed on 11/17 growing ESBL Klebsiella, cefepime discontinued and meropenem started. Source of bacteremia likely urine. Patient missed 2 doses of antibiotics due to patient refusing, antibiotics end date adjusted. Leukocytosis with left shift resolved Bilateral stage IV ischial decubitus ulcer The patient underwent surgical I& D on 08/23. Patient's taken back to OR on 11/19 and remaining necrotic tissue was removed, wound VAC placed to bilateral wounds. Wound VAC taken off on 11/26--patient refusing. Continue wound care per surgical team, utilizing Dakin's wet-to-dry. Right ischial aspect of pelvis exposed, imperative that this area be kept moist clean and covered. Patient will need to be treated for osteomyelitis with IV antibiotics for total duration of 6 weeks. Paraplegic with bed bound/wheelchair-bound status, anemia of chronic disease, protein caloric malnutrition, dehydration All aspects which hinder wound healing ability. Recommend placement of air mattress. Recommend repositioning patient in bed every 2 hr during waking hr. Avoid direct pressure over wounds. Patient started on vitamins to promote wound healing including vitamin-C, vitamin-D, and zinc. Vitamin-D level pending. Recommend supplemental Ensure protein drinks. Diffuse maculopapular rash Rash present on admission, not likely due to any medication/antibiotic therapy. Rash likely due to patient being found in did show for an estimated 2 days. Per EMS patient was found to have antibiotics all over his body. Continue treatment with Benadryl. RPR to rule out syphilis pending Acute encephalopathy, Rhabdomyolysis, MADDIE, Polysubstance abuse Medical management per primary team Renal function worsening Dispo: Would prefer to transfer patient to [facility] for antibiotic and wound care treatment however patient has no more acute care days. [facility] Patient will need antibiotic duration of 6 weeks with weekly labs including: CBC, CMP, C reactive protein, ESR. Plan of care discussed with Dr. Hobbs Thank you for consultation Physician Review: Patient Assessed, Agree with Above Assessment and Plan
[2020-12-03] MEDS: HYDROCORTISONE 1 % CREAM 30GM TOP PRN (12:38)
--- NOTE | 2020-12-03 13:45 | P.PN ---
Subjective Date of Service: 12/03/20 Chief Complaint: AMS, dehydration. Patient has no new complain. Physical Examination - Vital Signs Temperature: 98.1 F Blood Pressure: 131/73 Pulse: 88 Respirations: 18 Pulse Ox (%): 100 - Physical Exam General: Alert, In no apparent distress Respiratory: Clear to auscultation bilaterally, Normal air movement Cardiovascular: No edema, Regular rate/rhythm Gastrointestinal: Soft and benign, Non-distended Integumentary: Other (Sacral decubitus ulcer) Neurological: Other (No focal deficit) Other Physical/Emotional Findings: Agitated/anxious Assessment And Plan - Current Problems (Diagnosis) (1) Gram negative sepsis Current Visit: Yes Status: Acute (2) Infected decubitus ulcer Current Visit: Yes Status: Acute (3) Osteomyelitis of sacrum Current Visit: Yes Status: Acute (4) Polysubstance abuse Current Visit: Yes Status: Acute (5) Erythematous rash Current Visit: Yes Status: Acute (6) Acute renal failure Current Visit: Yes Status: Acute (7) Paraplegia Current Visit: Yes Status: Acute (8) Gram-positive cocci bacteremia Current Visit: Yes Status: Acute Physician Review: Patient Assessed, Agree with Above Assessment and Plan Physician Review Additional Text: Problem list Acute metabolic encephalopathy secondary to sepsis, resolved Acute renal failure, prerenal secondary to dehydration, resolved Rhabdomyolysis, resolved Bilateral ischial decubitus ulceration Sepsis secondary to decubitus ulcer/osteomyelitis, with bacteremia Chronic microcytic anemia, iron deficiency/chronic disease Polysubstance abuse Paraplegia h/o colostomy h/o suprapubic catheter, now closed Continue IV meropenem blood culture 11/17:Proteus, Klebsiella ESBL. Repeat blood culture 11/20: No growth to date. PICC line for outpatient IV antibiotics placed. Leukocytosis resolved Transthoracic Echocardiogram: No vegetation. Local wound care with wet to dry dressing General surgery recommended skin flap in the near future. Pain management as needed. rash nearly resolved. On hydrocortisone cream MADDIE resolved. Nephrology following Patient not a candidate for LTAC placement per social service - no further acute days Significant iron deficiency, continue p.o. iron. Awaiting for SNF placement.
--- NOTE | 2020-12-03 14:11 | PN ---
Date of Progress Note: 12/03/2020 Subjective: The patient was admitted with acute kidney injury secondary to rhabdomyolysis secondary to fall. The patient had UTI and hypocalcemia. Kidney function has been improved and normalized. Physical Examination: Vital Signs: Blood pressure 138/64, pulse of 75, afebrile the patient had good urine output of 2200. Chest: Clear to auscultation. Heart: S1, S2. Regular. Abdomen: Soft. Colostomy. Extremities: Left above-knee amputation. Multiple decubitus ulcers on the sacral area. Neuro: Alert. No focality. Laboratory Data: Back on the 29 of November, H and H 9.06/24. Sodium 141, potassium 3.9, bicarb 29 , BUN 13, creatinine 0.6. Current Medications: The patient on include; 1.Aspirin. 2.Meropenem. 3.Ferrous sulfate. 4.Tylenol. 5.Amiloride 5 mg daily. 6.Zinc sulfate. 7.Zofran. Assessment And Plan: 1.Acute kidney injury secondary to prerenal/rhabdomyolysis, recovered, resolved. 2.Hypomagnesemia, hypokalemia secondary to salt wasting. Responded to amiloride. Continue current treatment. 3.Rhabdomyolysis secondary to fall, resolved. 4.Urinary tract infection secondary to Klebsiella pneumonia. Continue meropenem. We will follow up with ID. 5.Decubitus ulcer and osteo. Continue wound care. Continue current antibiotic. We will follow up with ID. Dose appropriate. 6.Iron deficiency anemia, status post supplement. We will continue current treatment. ROMAN/JOEL Voice ID: [id number] Report ID: [id number]
[2020-12-03 15:09] LABS: Hematocrit 25.2 % (39.6-49.0); MPV 7.3 fL (7.6-11.3)
[2020-12-03 15:44] LABS: BUN Blood Urea Nitrogen 10 mg/dL (7-18); Bicarbonate 29 mmol/L (21-32); Glucose Level 99 mg/dL (74-106); Magnesium 1.8 mg/dL (1.8-2.4); Phosphorus 4.3 mg/dL (2.5-4.9); Potassium 4.2 mmol/L (3.5-5.1); Sodium Level 140 mmol/L (136-145)
[2020-12-03] MEDS ORDERED: MAGNESIUM SULFATE 1 gm IVPB 1 GM/100 ML BAG IV ONE (15:49)
[2020-12-03] MEDS: HYDROCODONE/APAP 5/325 MG TAB PO PRN (21:38)
[2020-12-04] MEDS: Meropenem 1 GM/100 ML BAG IV SCH ×4 (00:01→18:42)
[2020-12-04] MEDS: FERROUS SULFATE 325 MG TAB PO SCH ×2 (08:43→21:09)
[2020-12-04] MEDS: ASPIRIN 81 MG CHEWABLE TABLET PO SCH (08:43)
[2020-12-04] MEDS: ZINC SULFATE 220 MG CAP PO SCH (08:43)
[2020-12-04] MEDS: AMILORIDE HCL 5 MG TABLET PO SCH (08:43)
[2020-12-04] MEDS: MAGNESIUM OXIDE 400 MG TAB PO SCH ×2 (08:43→21:00)
[2020-12-04] MEDS: ASCORBIC ACID 500 MG TABLET PO SCH (08:43)
[2020-12-04] MEDS: SODIUM HYPOCHLORITE 0.25% 473 ML TOP SCH (08:44)
[2020-12-04] MEDS: ENSURE HIGH PROTEIN 237 ML CAN PO SCH ×3 (08:44→21:09)
[2020-12-04] MEDS: JUVEN PACKET PO SCH ×2 (08:44→21:09)
[2020-12-04] MEDS: HYDROCODONE/APAP 5/325 MG TAB PO PRN ×2 (08:44→17:39)
[2020-12-04] MEDS: Magnesium Sulfate 2gm IVPB 2 G/50 ML BAG IV ONE ×2 (09:59)
--- NOTE | 2020-12-04 10:25 | P.PN ---
Subjective Date of Service: 12/04/20 Chief Complaint: AMS, dehydration. Patient seen examined at bedside, left arm PICC line placed. Said to be discharged to care home. Patient unwilling to participate and patient interview. Physical Examination - Vital Signs Temperature: 97.8 F Blood Pressure: 129/71 Pulse: 108 Respirations: 18 Pulse Ox (%): 97 - Physical Exam Other Physical/Emotional Findings: Agitated/anxious Assessment And Plan - Plan Physical Exam: General: Oriented x1, Cachectic, Confused HEENT: Atraumatic, Normocephalic Neck: Supple, 2+ carotid pulse no bruit Respiratory: Clear to auscultation bilaterally, Normal air movement Cardiovascular: No edema, Normal pulses, Regular rate/rhythm Capillary refill: <2 Seconds Gastrointestinal: Other (colostomy bag) Musculoskeletal: Other (Left AKA, right 5th toe amputation) Integumentary: Pressure ulcer (Bilateral stage IV ischial decubitus ulcers. Draining ban blood, status post surgical I and D performed on 11/17 mary wound tissue erythematous) Neurological: Other (Paraplegic) Urinary: Scott catheter Rectal: Deferred Other Physical/Emotional Findings: Agitated/anxious Conclusions/Impression: Antibiotics: Current: merum start: 11/19 stop: 01/02 on 01/02 will need two doses Doxycycline Start: 11/17 Stop: 11/25 DC: Cefepime Start: 11/17 Stop: 11/19 Patient received single dose of vancomycin on 11/17 Assessment/PLAN: Severe urosepsis with bacteremia and UTI Severe sepsis on admission. Blood cultures performed on 11/17 growing gram- negative rods in 4/4 bottles--growing an ESBL producing Klebsiella and Proteus mirabilis. Repeat blood cultures performed on 11/19 growing a coagulase-negative Staph in 1/2 bottles, likely contaminant. Blood cultures taken on 11/20 show NGTD. Urine culture performed on 11/17 growing ESBL Klebsiella, cefepime discontinued and meropenem started. Source of bacteremia likely urine. Patient missed 2 doses of antibiotics due to patient refusing, antibiotics end date adjusted. Leukocytosis with left shift resolved Bilateral stage IV ischial decubitus ulcer The patient underwent surgical I& D on 11/17. Patient's taken back to OR on 11/19 and remaining necrotic tissue was removed, wound VAC placed to bilateral wounds. Wound VAC taken off on 11/26--patient refusing. Continue wound care per surgical team, utilizing Dakin's wet-to-dry. Right ischial aspect of pelvis exposed, imperative that this area be kept moist clean and covered. Patient will need to be treated for osteomyelitis with IV antibiotics for total duration of 6 weeks. Paraplegic with bed bound/wheelchair-bound status, anemia of chronic disease, protein caloric malnutrition, dehydration All aspects which hinder wound healing ability. Recommend placement of air mattress. Recommend repositioning patient in bed every 2 hr during waking hr. Avoid direct pressure over wounds. Patient started on vitamins to promote wound healing including vitamin-C, vitamin-D, and zinc. Vitamin-D level pending. Recommend supplemental Ensure protein drinks. Diffuse maculopapular rash Rash present on admission, not likely due to any medication/antibiotic therapy. Rash likely due to patient being found in did show for an estimated 2 days. Per EMS patient was found to have antibiotics all over his body. Continue treatment with Benadryl. RPR to rule out syphilis pending Acute encephalopathy, Rhabdomyolysis, MADDIE, Polysubstance abuse Medical management per primary team Renal function worsening Dispo: Would prefer to transfer patient to [facility] for antibiotic and wound care treatment however patient has no more acute care days. Patient will likely be sent to care home on merum. Patient will need antibiotic duration of 6 weeks with weekly labs including: CBC, CMP, C reactive protein, ESR. Plan of care discussed with Dr. Hobbs Thank you for consultation Physician Review: Patient Assessed, Agree with Above Assessment and Plan
--- NOTE | 2020-12-04 12:45 | PN ---
Date of Progress Note: 12/04/2020 Subjective: The patient was admitted with acute kidney injury secondary to rhabdomyolysis, poor perf usion ATN, toxic ATN. The patient treated, kidney function has been normalized. Physical Examination: Vital Signs: When I saw the patient; blood pressure 104/57, pulse of 86, afebrile. Chest: Clear to auscultation. Heart: S1, S2. Regular. Abdomen: Colostomy. Soft, nontender. Extremity: Left above-knee amputation. No edema. Neurologic: Alert. No focality. Laboratory Data: H and H 8/25.2, WBC 7. Sodium 140, potassium 4.2, bicarb 29, BUN 10, creatinine 0. 6, calcium 8.2, phosphorus 4.3, magnesium 1.8. Current Medications: The patient on include; 1.Aspirin. 2.Meropenem. 3.Ferrous sulfate. 4.Amiloride. 5.Zofran. 6.Morphine. 7.Hydrocodone. 8.Hydrocortisone locally. Assessment And Plan: 1.Acute kidney injury secondary to rhabdomyolysis, poor perfusion, ATN, toxic ATN, recovered, resolv ed. Off IV fluid. 2.Rhabdomyolysis, resolved. 3.Hypocalcemia secondary to poor intake, demobilization, currently corrected. 4.Hypokalemia, hypomagnesemia, and hypophosphatemia secondary to salt wasting. Responds to amilorid e. Continue current treatment. 5.Urinary tract infection, multi-organism, secondary to Klebsiella pneumonia. Continue current oziel penem. 6.Decubitus ulcer. Continue current wound care and antibiotic. We will follow up with ID and Wound Care. MESSI Voice ID: [id number] Report ID: [id number]
--- NOTE | 2020-12-04 13:00 | PN ---
Date of Progress Note: 12/04/2020 Subjective: The patient was admitted with acute kidney injury secondary to toxic ATN seco ndary to UTI. The patient was treated. Kidney function has been normalized. Physical Examination: Vital Signs: Blood pressure 104/57, pulse of 86, afebrile. The patient had good urine output of 290 0. Negative of 1400. Chest: Clear to auscultation. Heart: S1, S2. Regular. Abdomen: Soft. Colostomy. Extremity: No edema. Left above-knee amputation. DICTATION ENDS HERE MESSI Voice ID: [id number] Report ID: [id number]
[2020-12-04 13:08] LABS: BUN Blood Urea Nitrogen 15 mg/dL (7-18); Bicarbonate 31 mmol/L (21-32); Glucose Level 87 mg/dL (74-106); Potassium 3.9 mmol/L (3.5-5.1); Sodium Level 142 mmol/L (136-145)
--- NOTE | 2020-12-04 18:07 | P.PN ---
Subjective Date of Service: 12/04/20 Chief Complaint: AMS, dehydration. Patient has no new complain. He is complaining of pain in the sacral wound. Physical Examination - Vital Signs Temperature: 98.1 F Blood Pressure: 105/57 Pulse: 75 Respirations: 16 Pulse Ox (%): 98 - Physical Exam General: In no apparent distress, Oriented x3 Neck: JVD not distended Respiratory: Clear to auscultation bilaterally, Normal air movement Cardiovascular: No edema, Regular rate/rhythm, Normal S1 S2 Gastrointestinal: Soft and benign, Non-distended Other Physical/Emotional Findings: Agitated/anxious Assessment And Plan - Current Problems (Diagnosis) (1) Gram negative sepsis Current Visit: Yes Status: Acute (2) Infected decubitus ulcer Current Visit: Yes Status: Acute (3) Osteomyelitis of sacrum Current Visit: Yes Status: Acute (4) Polysubstance abuse Current Visit: Yes Status: Acute (5) Erythematous rash Current Visit: Yes Status: Acute (6) Acute renal failure Current Visit: Yes Status: Acute (7) Paraplegia Current Visit: Yes Status: Acute (8) Gram-positive cocci bacteremia Current Visit: Yes Status: Acute Physician Review: Patient Assessed, Agree with Above Assessment and Plan Physician Review Additional Text: Problem list Acute metabolic encephalopathy secondary to sepsis, resolved Acute renal failure, prerenal secondary to dehydration, resolved Rhabdomyolysis, resolved Bilateral ischial decubitus ulceration Sepsis secondary to decubitus ulcer/osteomyelitis, with bacteremia Chronic microcytic anemia, iron deficiency/chronic disease Polysubstance abuse Paraplegia h/o colostomy h/o suprapubic catheter, now closed. Chronic anemia Continue IV meropenem blood culture 11/17:Proteus, Klebsiella ESBL. Repeat blood culture 11/20: No growth to date. PICC line for outpatient IV antibiotics placed. Leukocytosis resolved Transthoracic Echocardiogram: No vegetation. Local wound care with wet to dry dressing General surgery recommended skin flap in the near future. Pain management as needed. Will increase [place] to 10/325 mg q.4 hr p.r.n. given patient's complaining of pain. rash nearly resolved. MADDIE resolved. Nephrology following Patient not a candidate for LTAC placement per social service - no further acute days Significant iron deficiency, continue p.o. iron. Awaiting for SNF placement.
[2020-12-04] MEDS: HYDROCODONE/APAP 10/325 TAB PO PRN (21:09)
[2020-12-05] MEDS: Meropenem 1 GM/100 ML BAG IV SCH ×2 (01:26→08:26)
[2020-12-05 01:51] VITALS: O2SAT 100
[2020-12-05] MEDS: HYDROCODONE/APAP 10/325 TAB PO PRN ×4 (02:34→15:42)
[2020-12-05] MEDS: SODIUM HYPOCHLORITE 0.25% 473 ML TOP SCH (04:00)
[2020-12-05] MEDS ORDERED: MORPHINE 2 MG/ML SYR IV ONE ×2 (04:33→16:00)
[2020-12-05] MEDS: ASCORBIC ACID 500 MG TABLET PO SCH (08:24)
[2020-12-05] MEDS: MAGNESIUM OXIDE 400 MG TAB PO SCH (08:24)
[2020-12-05] MEDS: ZINC SULFATE 220 MG CAP PO SCH (08:24)
[2020-12-05] MEDS: FERROUS SULFATE 325 MG TAB PO SCH (08:24)
[2020-12-05] MEDS: AMILORIDE HCL 5 MG TABLET PO SCH (08:25)
[2020-12-05] MEDS: JUVEN PACKET PO SCH (08:26)
[2020-12-05] MEDS: ASPIRIN 81 MG CHEWABLE TABLET PO SCH (08:26)
[2020-12-05] MEDS: ENSURE HIGH PROTEIN 237 ML CAN PO SCH (08:27)
--- NOTE | 2020-12-05 08:34 | P.PN ---
Subjective Date of Service: 12/05/20 Chief Complaint: AMS, dehydration. Subjective: No new changes Physical Examination - Vital Signs Temperature: 97.2 F Blood Pressure: 143/75 Pulse: 61 Respirations: 22 Pulse Ox (%): 100 - Physical Exam General: In no apparent distress HEENT: Atraumatic, Normocephalic Neck: Supple, JVD not distended Respiratory: Clear to auscultation bilaterally Cardiovascular: No rubs, No murmurs Gastrointestinal: Soft and benign Integumentary: Other (sacral decubitus ulcer) Neurological: Normal speech Urinary: Stout catheter Other Physical/Emotional Findings: Agitated/anxious Assessment And Plan - Plan 1. Acute kidney injury secondary to prerenal state. Improved. [place] po fluid intake. Continue stout catheter. 2. Sepsis. Has UTI w/ urine culture growing ESBL Klebsiella. Has stage IV sacral decubitus ulcer. Wound cx growing Klebsiella and Proteus. Antibiotics per ID service. He now agrees to continue Meropenem. Needs PICC. Needs wound vac. 3. Anemia. Monitor H&H. 4. Hypomagnesemia. Replete prn. 5. Acute metabolic encephalopathy. Resolved. Monitor 6. Paraplegia. PT/OT. 7. Dispo. Dc to SNF. Physician Review: Patient Assessed, Agree with Above Assessment and Plan
--- NOTE | 2020-12-05 09:13 | P.PN ---
Subjective Date of Service: 12/05/20 Chief Complaint: AMS, dehydration. Patient seen examined at bedside, wound care per surgical team. Review of Systems 10-point ROS is otherwise unremarkable Physical Examination - Vital Signs Temperature: 97.2 F Blood Pressure: 143/75 Pulse: 61 Respirations: 22 Pulse Ox (%): 100 - Physical Exam Other Physical/Emotional Findings: Agitated/anxious - Studies Laboratory Last Values WBC 22.40 K/uL (4.3-10.9) H* 11/17/20 12:05 RBC 4.82 M/uL (4.33-5.43) 11/17/20 12:05 Hgb 11.3 g/dL (13.6-17.9) L 11/17/20 12:05 Hct 35.9 % (39.6-49.0) L 11/17/20 12:05 MCV 74.4 fL (80-100) L 11/17/20 12:05 MCH 23.4 pg (27.0-35.0) L 11/17/20 12:05 MCHC 31.5 g/dL (32.0-36.0) L 11/17/20 12:05 RDW 18.4 % (12.1-15.2) H 11/17/20 12:05 Plt Count 709 K/uL (152-406) H 11/17/20 12:05 MPV 8.3 fL (7.6-11.3) 11/17/20 12:05 Neutrophils % 87.7 % (41.7-73.7) H 11/17/20 12:05 Lymphocytes % 4.2 % (15.3-44.8) L 11/17/20 12:05 Monocytes % 7.8 % (3.3-12.3) 11/17/20 12:05 Eosinophils % 0.0 % (0-4.4) 11/17/20 12:05 Basophils % 0.3 % (0-1.3) 11/17/20 12:05 Absolute Neutrophils 19.7 K/uL (1.8-8.0) H 11/17/20 12:05 Segmented Neutrophils 87 % (40-80) H 11/17/20 12:05 Absolute Lymphocytes 0.9 K/uL (0.7-4.9) 11/17/20 12:05 Lymphocytes 7 % (15-42) L 11/17/20 12:05 Monocytes 6 % (0-10) 11/17/20 12:05 Absolute Monocytes 1.8 K/uL (0.1-1.3) H 11/17/20 12:05 Absolute Eosinophils 0.0 K/uL (0-0.5) 11/17/20 12:05 Absolute Basophils 0.1 K/uL (0-0.5) 11/17/20 12:05 Platelet Estimate Incr 11/17/20 12:05 Anisocytosis Slight 11/17/20 12:05 Morphology Comment Noted (NOT SEEN) 11/17/20 12:05 PT 18.2 SECONDS (9.5-12.5) H 11/17/20 12:05 INR 1.58 11/17/20 12:05 APTT 29.5 SECONDS (24.3-36.9) 11/17/20 12:05 Sodium 130 mmol/L (136-145) L 11/17/20 12:05 Potassium 4.7 mmol/L (3.5-5.1) 11/17/20 12:05 Chloride 95 mmol/L (98-107) L 11/17/20 12:05 Carbon Dioxide 16 mmol/L (21-32) L 11/17/20 12:05 BUN 52 mg/dL (7-18) H 11/17/20 12:05 Creatinine 5.29 mg/dL (0.55-1.3) H* 11/17/20 12:05 Estimated GFR 12 mL/min (=/>90) L 11/17/20 12:05 Glucose 141 mg/dL (74-106) H 11/17/20 12:05 Lactic Acid 6.4 11/17/20 12:05 Calcium 8.2 mg/dL (8.5-10.1) L 11/17/20 12:05 Total Bilirubin 0.6 mg/dL (0.2-1.0) 11/17/20 12:05 Direct Bilirubin 0.2 mg/dL (0-0.2) 11/17/20 12:05 AST 50 U/L (15-37) H 11/17/20 12:05 ALT 18 U/L (12-78) 11/17/20 12:05 Alkaline Phosphatase 100 U/L (45-117) 11/17/20 12:05 Creatine Kinase 1771 U/L (39-308) H* 11/17/20 12:05 Rapid Troponin I < 0.02 ng/mL (0.0-0.045) 11/17/20 12:05 Serum Total Protein 8.6 g/dL (6.4-8.2) H 11/17/20 12:05 Albumin 2.9 g/dL (3.4-5.0) L 11/17/20 12:05 Globulin 5.7 g/dL (2.3-3.5) H 11/17/20 12:05 Albumin/Globulin Ratio 0.5 (1.1-1.8) L 11/17/20 12:05 Procalcitonin 376.15 ng/mL (<0.050) H 11/17/20 12:05 Urine Color Cancelled 11/17/20 15:34 Urine Appearance Cancelled 11/17/20 15:34 Urine pH Cancelled 11/17/20 15:34 Ur Specific [place] Cancelled 11/17/20 15:34 Glucose (UA)(Auto) Cancelled 11/17/20 15:34 Urine Ketones Cancelled 11/17/20 15:34 Urine Blood Cancelled 11/17/20 15:34 Urine Nitrite Cancelled 11/17/20 15:34 Urine Bilirubin Cancelled 11/17/20 15:34 Urine Urobilinogen Cancelled 11/17/20 15:34 Ur Leukocyte Esterase Cancelled 11/17/20 15:34 Urine RBC 5-10 /HPF (NONE SEEN) H 11/17/20 12:56 Urine WBC 10-20 /HPF (<5) H 11/17/20 12:56 Ur Squamous Epith Cells 5-10 /HPF (NONE SEEN) H 11/17/20 12:56 Urine Bacteria <20 /HPF (NONE SEEN) 11/17/20 12:56 Urine Mucus 2+ /HPF (NONE SEEN) 11/17/20 12:56 Urine Culture Reflexed Reflexed 11/17/20 12:56 Urine Total Protein Cancelled 11/17/20 15:34 Opiates Screen Negative (NEGATIVE) 11/17/20 12:56 Methadone Screen Negative (NEGATIVE) 11/17/20 12:56 Ur Barbiturates Screen Negative (NEGATIVE) 11/17/20 12:56 Ur Phencyclidine Scrn Negative (NEGATIVE) 11/17/20 12:56 Amphetamines Screen Positive (NEGATIVE) H 11/17/20 12:56 Benzodiazepines Screen Negative (NEGATIVE) 11/17/20 12:56 Cocaine Screen Positive (NEGATIVE) H 11/17/20 12:56 Ur THC Screen Negative (NEGATIVE) 11/17/20 12:56 SARS-CoV-2 Rap RNA(RT-PCR) Negative (NEGATIVE) 11/17/20 12:30 Assessment And Plan - Plan Physical Exam: General: Oriented x1, Cachectic, Confused HEENT: Atraumatic, Normocephalic Neck: Supple, 2+ carotid pulse no bruit Respiratory: Clear to auscultation bilaterally, Normal air movement Cardiovascular: No edema, Normal pulses, Regular rate/rhythm Capillary refill: <2 Seconds Gastrointestinal: Other (colostomy bag) Musculoskeletal: Other (Left AKA, right 5th toe amputation) Integumentary: Pressure ulcer (Bilateral stage IV ischial decubitus ulcers. Draining ban blood, status post surgical I and D performed on 11/17 mary wound tissue erythematous) Neurological: Other (Paraplegic) Urinary: Scott catheter Rectal: Deferred Other Physical/Emotional Findings: Agitated/anxious Conclusions/Impression: Antibiotics: Current: merum start: 11/19 stop: 01/02 on 01/02 will need two doses Doxycycline Start: 11/17 Stop: 11/25 DC: Cefepime Start: 11/17 Stop: 11/19 Patient received single dose of vancomycin on 11/17 Assessment/PLAN: Severe urosepsis with bacteremia and UTI Severe sepsis on admission. Blood cultures performed on 11/17 growing gram- negative rods in 4/4 bottles--growing an ESBL producing Klebsiella and Proteus mirabilis. Repeat blood cultures performed on 11/19 growing a coagulase-negative Staph in 1/2 bottles, likely contaminant. Blood cultures taken on 11/20 show NGTD. Urine culture performed on 11/17 growing ESBL Klebsiella, cefepime discontinued and meropenem started. Source of bacteremia likely urine. Patient missed 2 doses of antibiotics due to patient refusing, antibiotics end date adjusted. Leukocytosis with left shift resolved Bilateral stage IV ischial decubitus ulcer The patient underwent surgical I& D on 11/17. Patient's taken back to OR on 11/19 and remaining necrotic tissue was removed, wound VAC placed to bilateral wounds. Wound VAC taken off on 11/26--patient refusing. Continue wound care per surgical team, utilizing Dakin's wet-to-dry. Right ischial aspect of pelvis exposed, imperative that this area be kept moist clean and covered. Patient will need to be treated for osteomyelitis with IV antibiotics for total duration of 6 weeks. Paraplegic with bed bound/wheelchair-bound status, anemia of chronic disease, protein caloric malnutrition, dehydration All aspects which hinder wound healing ability. Recommend placement of air mattress. Recommend repositioning patient in bed every 2 hr during waking hr. Avoid direct pressure over wounds. Patient started on vitamins to promote wound healing including vitamin-C, vitamin-D, and zinc. Vitamin-D level pending. Recommend supplemental Ensure protein drinks. Diffuse maculopapular rash Rash present on admission, not likely due to any medication/antibiotic therapy. Rash likely due to patient being found in did show for an estimated 2 days. Per EMS patient was found to have antibiotics all over his body. Continue treatment with Benadryl. RPR to rule out syphilis pending Acute encephalopathy, Rhabdomyolysis, MADDIE, Polysubstance abuse Medical management per primary team Renal function worsening Dispo: Would prefer to transfer patient to [facility] for antibiotic and wound care treatment however patient has no more acute care days. Patient will likely be sent to care home on merum. Patient will need antibiotic duration of 6 weeks with weekly labs including: CBC, CMP, C reactive protein, ESR. Plan of care discussed with Dr. Hobbs Thank you for consultation Physician Review: Patient Assessed, Agree with Above Assessment and Plan
--- NOTE | 2020-12-05 14:15 | P.PN ---
Subjective Date of Service: 12/05/20 Chief Complaint: AMS, dehydration. Patient has no new complain. He is reporting occasional increased pain in the sacral wound. Physical Examination - Vital Signs Temperature: 98.5 F Blood Pressure: 126/69 Pulse: 82 Respirations: 22 Pulse Ox (%): 100 - Physical Exam General: Alert, In no apparent distress, Oriented x3 HEENT: Mucous membr. moist/pink Neck: JVD not distended Respiratory: Clear to auscultation bilaterally, Normal air movement Cardiovascular: No edema, Regular rate/rhythm, Normal S1 S2 Gastrointestinal: Normal bowel sounds, Soft and benign, Non-distended Musculoskeletal: No swelling Neurological: Other (No focal motor deficit.) Other Physical/Emotional Findings: Agitated/anxious Assessment And Plan - Current Problems (Diagnosis) (1) Gram negative sepsis Current Visit: Yes Status: Acute (2) Infected decubitus ulcer Current Visit: Yes Status: Acute (3) Osteomyelitis of sacrum Current Visit: Yes Status: Acute (4) Polysubstance abuse Current Visit: Yes Status: Acute (5) Erythematous rash Current Visit: Yes Status: Acute (6) Acute renal failure Current Visit: Yes Status: Acute (7) Paraplegia Current Visit: Yes Status: Acute (8) Gram-positive cocci bacteremia Current Visit: Yes Status: Acute Physician Review: Patient Assessed, Agree with Above Assessment and Plan Physician Review Additional Text: Problem list Acute metabolic encephalopathy secondary to sepsis, resolved Acute renal failure, prerenal secondary to dehydration, resolved Rhabdomyolysis, resolved Bilateral ischial decubitus ulceration Sepsis secondary to decubitus ulcer/osteomyelitis, with bacteremia Chronic microcytic anemia, iron deficiency/chronic disease Polysubstance abuse Paraplegia h/o colostomy h/o suprapubic catheter, now closed. Chronic anemia Continue IV meropenem blood culture 11/17:Proteus, Klebsiella ESBL. Repeat blood culture 11/20: No growth to date. PICC line for outpatient IV antibiotics placed. Leukocytosis resolved Transthoracic Echocardiogram: No vegetation. Local wound care with wet to dry dressing General surgery recommended skin flap in the near future. Pain management as needed. Continue [place] 10/325 mg q.4 hr p.r.n. Rash nearly resolved. Now complaining of rash in the groin MADDIE resolved. Nephrology following Patient not a candidate for LTAC placement per social service - no further acute days Significant iron deficiency, continue p.o. iron. Nystatin powder for groin rash. Patient with significant anemia, iron deficiency likely secondary to chronic blood loss. Patient requested heparin for DVT prophylaxis. There is a risk of increased anemia form increase blood loss with anticoagulant. With treatment heparin 5000U q.12 hrs and monitor H&H. Awaiting for SNF placement.
--- NOTE | 2020-12-05 14:58 | P.DS ---
Admission Date: 11/17/20 Discharge Date: 12/05/20 Disposition: TRANSFER TO [facility] Discharge Condition: FAIR Reason for Admission: AMS, dehydration. - Problems (1) Gram negative sepsis Current Visit: Yes Status: Acute (2) Infected decubitus ulcer Current Visit: Yes Status: Acute (3) Osteomyelitis of sacrum Current Visit: Yes Status: Acute (4) Polysubstance abuse Current Visit: Yes Status: Acute (5) Erythematous rash Current Visit: Yes Status: Acute (6) Acute renal failure Current Visit: Yes Status: Acute (7) Paraplegia Current Visit: Yes Status: Acute (8) Gram-negative bacteremia Current Visit: Yes Status: Acute (9) Iron deficiency anemia Current Visit: Yes Status: Acute Brief History of Present Illness: 40-year-old male with a past medical history significant for paraplegia was brought to the ER for altered mental status and dehydration. Patient currently alert and oriented x1. Patient was confused and was not able to provide any meaningful history. Per medical record and account of ER staff, patient fell out of his wheelchair and could not get back up. Per report, he was in a ditch for approximately 2 days. Patient was seen by a security team on the side of the road, confused and was brought to the hospital for medical evaluation. Patient noted to have sacral decubitus ulcer. He is left AKA. Blood work showed severe leukocytes. Patient tachycardic and meet criteria for sepsis. He was admitted for further management. Hospital Course: Acute metabolic encephalopathy secondary to sepsis, resolved Acute renal failure, prerenal secondary to dehydration, resolved Rhabdomyolysis, resolved Bilateral ischial decubitus ulceration Sepsis secondary to decubitus ulcer/osteomyelitis, with bacteremia Anemia chronic disease Polysubstance abuse Paraplegia h/o colostomy h/o suprapubic catheter, now closed Patient admitted to the medical floor and started on aggressive IV antibiotics. blood culture 11/17 grew Proteus, Klebsiella ESBL. Repeat blood culture 11/20: No growth to date. Patient initially treated with IV cefepime and vancomycin, antibiotics changed to IV meropenem. He was also treated with IV doxycycline. Patient was seen by infectious disease who assisted with management. Also seen by general surgery-Dr. Frederick, and his sacral decubitus ulcer debrided x2 and and wound VAC placed. PICC line for outpatient IV placed. Leukocytosis resolved Transthoracic Echocardiogram: No vegetation. Local wound care with wet to dry dressing General surgery recommended skin flap in the near future. Pain managed with IV morphine and [place] and later scaled down to oral [place]. He had a generalized erythematous papular rash. Hydrocortisone cream ordered to treat the rash. This rash resolved. He has another rash in the groin suspected to be a fungal rash. Patient prescribed nystatin powder on discharge Had MADDIE, seen by Nephrology. MADDIE resolved. Clinically stable. Patient has been accepted to SNF. Vital Signs/Physical Exam: Temp Pulse Resp BP Pulse Ox 98.5 F 82 22 H 126/69 100 12/05/20 14:18 12/05/20 14:18 12/05/20 14:18 12/05/20 14:18 12/05/20 14:18 General: Alert, In no apparent distress, Oriented x3 HEENT: Mucous membr. moist/pink Neck: JVD not distended Respiratory: Clear to auscultation bilaterally, Normal air movement Cardiovascular: No edema, Regular rate/rhythm, Normal S1 S2 Gastrointestinal: Normal bowel sounds, Soft and benign, Non-distended, Other (Colostomy with bag) Musculoskeletal: Other (Left AKA) Integumentary: Other (Rash-bilateral groin) Neurological: Other (No focal motor deficit.) Other Physical/Emotional Findings: Agitated/anxious Laboratory Data at Discharge: WBC 7.00 K/uL (4.3-10.9) D 12/03/20 14:36 Hgb 8.0 g/dL (13.6-17.9) L 12/03/20 14:36 Hct 25.2 % (39.6-49.0) L D 12/03/20 14:36 Plt Count 591 K/uL (152-406) H 12/03/20 14:36 PT 17.1 SECONDS (9.5-12.5) H 11/18/20 05:19 INR 1.48 11/18/20 05:19 APTT 29.5 SECONDS (24.3-36.9) 11/17/20 12:05 Sodium 142 mmol/L (136-145) 12/04/20 12:30 Potassium 3.9 mmol/L (3.5-5.1) 12/04/20 12:30 BUN 15 mg/dL (7-18) 12/04/20 12:30 Creatinine 0.76 mg/dL (0.55-1.3) 12/04/20 12:30 Glucose 87 mg/dL (74-106) 12/04/20 12:30 Uric Acid 5.3 mg/dL (3.5-7.2) 11/19/20 04:20 Phosphorus 4.3 mg/dL (2.5-4.9) 12/03/20 14:36 Magnesium 2.0 mg/dL (1.8-2.4) 12/04/20 12:30 Total Bilirubin 0.1 mg/dL (0.2-1.0) L 11/27/20 05:10 AST 25 U/L (15-37) 11/27/20 05:10 ALT 23 U/L (12-78) 11/27/20 05:10 Alkaline Phosphatase 71 U/L (45-117) 11/27/20 05:10 Home Medications: Amiloride HCl [Midamor*] 5 mg PO DAILY tablet 12/05/20 Ascorbic Acid [Vitamin C*] 500 mg PO DAILY tablet 12/05/20 Ensure High Protein 237 ml PO BID can 12/05/20 Ferrous Sulfate [Ferrous Sulfate*] 325 mg PO BID tab 12/05/20 Maximus [Maximus*] 1 pkt PO BID powd.pack 12/05/20 Magnesium Oxide 400 mg PO BID #60 tablet 12/05/20 Meropenem [Merrem 1 GM/100 ML NS IVPB] 1 gm IV Q8HR 29 Days bag 12/05/20 Nystatin Powder [Mycostatin (Powder)*] 1 appl TOP BID #1 btl 12/05/20 Vitamin D [Drisdol*] 50,000 unit PO Q7D@0900 cap 12/05/20 Zinc Sulfate [Zinc Sulfate*] 220 mg PO DAILY cap 12/05/20 New Medications: Meropenem [Merrem 1 GM/100 ML NS IVPB] 1 gm IV Q8HR 29 Days bag Magnesium Oxide 400 mg PO BID #60 tablet Nystatin Powder [Mycostatin (Powder)*] 1 appl TOP BID #1 btl Diet: Regular Activity: Fall precautions Followup: Unknown,U [Primary Care Provider] - Sd Frederick MD [ACTIVE - CAN ADMIT] - (within 1 month.) Time spent managing pt's care (in minutes): 46
[2020-12-05 20:39] VITALS: BP 143/75; TEMP 97.2
[2020-12-05] MEDS ORDERED: HEPARIN 5000 UNIT/ML 1 ML VIAL SQ SCH (21:00)
== END 2020-12-05 18:14 | DRG 853 ==
LOC: ER 11:23 → ERHOLD 15:58 → 2ND 11-18 12:23
PROVIDERS: ADMIT Hospitalist; ATTEND Hospitalist
PROC: 0KBP0ZZ Excision of Left Hip Muscle, Open Approach (ICD-10-PCS; 2020-11-17)
PROC: 0KBN0ZZ Excision of Right Hip Muscle, Open Approach (ICD-10-PCS; 2020-11-17)
PROC: 0KDN0ZZ Extraction of Right Hip Muscle, Open Approach (ICD-10-PCS; 2020-11-19)
PROC: 0JD73ZZ Extraction of Back Subcutaneous Tissue and Fascia, Percutaneous Approach (ICD-10-PCS; 2020-11-19)
PROC: 02HV33Z Insertion of Infusion Device into Superior Vena Cava, Percutaneous Approach (ICD-10-PCS; principal; 2020-12-02)
DX: A41.59 Other Gram-negative sepsis (principal); L89.154 Pressure ulcer of sacral region, stage 4; G93.41 Metabolic encephalopathy; N17.0 Acute kidney failure with tubular necrosis; M46.28 Osteomyelitis of vertebra, sacral and sacrococcygeal region; G82.20 Paraplegia, unspecified; M62.82 Rhabdomyolysis; R64 Cachexia; N39.0 Urinary tract infection, site not specified; Z16.12 Extended spectrum beta lactamase (ESBL) resistance; E46 Unspecified protein-calorie malnutrition; D62 Acute posthemorrhagic anemia; R65.20 Severe sepsis without septic shock; D50.9 Iron deficiency anemia, unspecified; E86.0 Dehydration; F19.10 Other psychoactive substance abuse, uncomplicated; L53.9 Erythematous condition, unspecified; Z68.26 Body mass index [BMI] 26.0-26.9, adult; B96.1 Klebsiella pneumoniae [K. pneumoniae] as the cause of diseases classified elsewhere; B96.4 Proteus (mirabilis) (morganii) as the cause of diseases classified elsewhere; E83.42 Hypomagnesemia; E83.51 Hypocalcemia; E87.6 Hypokalemia; E83.39 Other disorders of phosphorus metabolism; Z93.3 Colostomy status; Z74.01 Bed confinement status; Z99.3 Dependence on wheelchair; Z89.421 Acquired absence of other right toe(s); Z89.612 Acquired absence of left leg above knee; Z20.822 Contact with and (suspected) exposure to COVID-19
CPT/HCPCS: 36415; 36569; 51702; 70450; 71045; 76770; 80048; 80053; 80069; 80076; 80202; 80307; 81003; 81015; 82435; 82550; 82570; 82607; 82652; 82728; 82746; 83520; 83540; 83605; 83735; 83970; 84100; 84132; 84145; 84156; 84165; 84300; 84443; 84466; 84484; 84550; 85025; 85027; 85044; 85610; 85652; 85730; 86021; 86038; 86140; 86160; 86225; 86317; 86430; 86592; 86704; 86706; 87040; 87070; 87075; 87077; 87086; 87088; 87186; 87205; 87340; 87389; 87522; 88304; 93005; 93306; 97110; 97112; 97161; 97530; 99251; 99291; 99292; J0692; J1100; J1200; J1644; J2175; J2185; J2250; J2270; J2370; J2405; J2704; J2916; J3010; J3370; J3475; J3590; J7030; J7050; J7120; U0003